=== PATIENT | male | born 1965 | race Caucasian/White ===

== ENCOUNTER → 2016-05-09 | Outpatient (CLI) | payer OTHER ==
[~2016-05-09] MED LIST: AMLODIPINE10 MG PO; AMOXICILLIN500 MG PO; AMOXIL500 MG PO; ANAPROX DS550 MG PO; ANUSOL-HC25 MG RC; ASPIRIN ADULT L81 M2 PO; ASPIRIN81 M1 PO; ATARAX25 MG PO; AUGMENTIN 875875 MG PO; BENZONATATE PO; CAPTOPRIL50 MG PO; CATAFLAM50 MG PO; CLARITIN10 MG PO; CLOPIDOGREL75 MG PO; COMPAZINE10 MG PO; CORDROL20 MG PO; CYCLOBENZAPRINE10 MG PO; DARVOCET N 1001 TAB PO; DAYPRO600 M1 PO; DICYCLOMINE HCL20 MG PO; FLEXERIL10 MG PO; FLEXERIL5 MG PO; GLUCOPHAGE500 M1 PO; GLYBURIDE5 MG PO; HYDROCHLOROTHIA25 MG PO; HYDROCODONE BIT1 T11 PO; IMDUR SA60 M1 PO; Imdur SA60 MG PO; KEFLEX500 MG PO; LANTUS SOLOS100 U/M1 SC; LISINOPRIL10 MG PO; LOTRISONE 0.05%1 CRE TP; LOVASTATIN20 MG PO; Lopressor25 MG PO; MEDROL DOSEPAK4 MG PO; METFORMIN1000 MG PO; METFORMIN500 MG PO; METOPROLOL100 MG PO; METOPROLOL50 MG PO; MEVACOR20 MG PO; MOTRIN800 MG PO; NAPROSYN500 MG PO; NEURONTIN600 MG PO; NKHM; NORCO 325 MG-51 TAB PO; NORCO 5-325 TA1 EACH PO; NOVOLIN R100 U/ML SC; OFLOXACIN PO; PARAFON FORTE500 MG PO; PERCOCET 325 MG1 TA2 PO; PREDNISONE10 MG PO; PREDNISONE20 MG PO; PRINIVIL10 MG PO; ROBAXIN750 MG PO; ROBITUSSIN AC 110 ML PO; TRAMADOL HCL50 MG PO; TRAMADOL50 MG PO; ULTRAM50 MG PO; VICODIN 5/500 505 MG PO; VICODIN ES 7501 TAB PO; [UNRECOGNIZED DRUG - OTHER] PO
== END | disposition home or self-care (01) ==
LOC: CT 05-02 15:00
DX: K42.9 Umbilical hernia without obstruction or gangrene (principal); K57.30 Diverticulosis of large intestine without perforation or abscess without bleeding; R10.32 Left lower quadrant pain

== ENCOUNTER → 2016-05-19 | Outpatient (CLI) | payer OTHER ==
[2016-05-19 11:45] LABS: BILIRUBIN NEGATIVE (NEGATIVE); BLOOD 1+ (NEGATIVE); CLARITY CLEAR (CLEAR); COLOR YELLOW (YELLOW); GLUCOSE 3+ (NEGATIVE); KETONE NEGATIVE (NEGATIVE); NITRITE NEGATIVE (NEGATIVE); PROTEIN 2+ (NEGATIVE); UROBILINOGEN 0.2 E.U./dl (0.2-1.0)
[2016-05-19 12:09] LABS: HEMOGLOBIN A1c 8.4 % (4.8-5.6)
[2016-05-19 12:22] LABS: ALBUMIN 3.4 gm/dl (3.1-4.5); ALKALINE PHOSPHATASE 105 U/L (45-117); BILIRUBIN, DIRECT < 0.1 mg/dL (0.0-0.2); BILIRUBIN, TOTAL 0.4 mg/dl (0.2-1.0); BUN 10 mg/dl (7-24); CARBON DIOXIDE 26 mmol/L (21-32); CHLORIDE 105 mmol/L (98-107); EST GLOM FILT AFRICAN AMERICAN > 60 ml/min; GLUCOSE 291 mg/dL (65-99); POTASSIUM 3.8 mmol/L (3.5-5.1); SGOT/AST 18 IU/L (3-35); SGPT/ALT 33 U/L (12-78); SODIUM 139 mmol/L (136-145); TOTAL PROTEIN 7.5 gm/dL (6.4-8.2)
[2016-05-19 12:44] LABS: LEUKO ESTERASE NEGATIVE (NEGATIVE)
[2016-05-19 13:07] LABS: VITAMIN D, 25-HYDROXY 20.1 ng/mL (30-100)
== END | disposition home or self-care (01) ==
LOC: LAB 11:14
PROVIDERS: Internal Medicine
DX: E11.40 Type 2 diabetes mellitus with diabetic neuropathy, unspecified (principal); E55.9 Vitamin D deficiency, unspecified; E78.5 Hyperlipidemia, unspecified

== ENCOUNTER → 2016-08-30 | Outpatient (CLI) | payer OTHER ==
[2016-08-30 15:11] LABS: BILIRUBIN NEGATIVE (NEGATIVE); BLOOD NEGATIVE (NEGATIVE); CLARITY CLEAR (CLEAR); COLOR YELLOW (YELLOW); GLUCOSE 2+ (NEGATIVE); KETONE NEGATIVE (NEGATIVE); LEUKO ESTERASE NEGATIVE (NEGATIVE); NITRITE NEGATIVE (NEGATIVE); PH 5.5 (5.0-9.0); PROTEIN NEGATIVE (NEGATIVE); SPECIFIC GRAVITY <= 1.005 (1.005-1.030); UROBILINOGEN 0.2 E.U./dl (0.2-1.0)
[2016-08-30 15:19] LABS: RBC 0-2 rbc/hpf (0-2); WBC 0-2 wbc/hpf (0-5)
[2016-08-30 15:32] LABS: HEMOGLOBIN A1c 9.9 % (4.8-5.6)
[2016-08-30 15:46] LABS: ALBUMIN 3.2 gm/dl (3.1-4.5); ALKALINE PHOSPHATASE 116 U/L (45-117); BILIRUBIN, DIRECT < 0.1 mg/dL (0.0-0.2); BILIRUBIN, TOTAL 0.3 mg/dl (0.2-1.0); BUN 5 mg/dl (7-24); CARBON DIOXIDE 27 mmol/L (21-32); CHLORIDE 106 mmol/L (98-107); CHOLESTEROL 172 mg/dL (<200); EST GLOM FILT AFRICAN AMERICAN > 60 ml/min; GLUCOSE 166 mg/dL (65-99); HDL CHOLESTEROL 31 mg/dl (40-60); LDL CHOLESTEROL 82 mg/dL (9-159); POTASSIUM 3.7 mmol/L (3.5-5.1); SGOT/AST 25 IU/L (3-35); SGPT/ALT 45 U/L (12-78); SODIUM 139 mmol/L (136-145); TRIGLYCERIDES 296 mg/dl (<150); VLDL CHOLESTEROL 59 mg/dL (6-40)
== END | disposition home or self-care (01) ==
LOC: LAB 14:32
PROVIDERS: Internal Medicine
DX: E11.65 Type 2 diabetes mellitus with hyperglycemia (principal); E55.9 Vitamin D deficiency, unspecified; E78.5 Hyperlipidemia, unspecified

== ENCOUNTER 2016-12-18 14:41 | Emergency (ER) | payer OTHER ==
[2016-12-18 14:48] VITALS: BP 165/100
[2016-12-18] MEDS ORDERED: LOTRIMIN AF12 GM T (15:27)
== END 2016-12-18 16:02 | disposition home or self-care (01) ==
LOC: ED 14:41
DX: B37.9 Candidiasis, unspecified (principal); Z88.4 Allergy status to anesthetic agent; Z79.82 Long term (current) use of aspirin; Z79.899 Other long term (current) drug therapy

== ENCOUNTER → 2016-12-21 | Outpatient (CLI) | payer OTHER ==
[~2016-12-21] MED LIST changes: +LOTRIMIN AF12 GM T
== END | disposition home or self-care (01) ==
LOC: RAD 12:13
DX: M76.891 Other specified enthesopathies of right lower limb, excluding foot (principal)

== ENCOUNTER 2017-03-06 16:37 | Emergency (ER) | payer OTHER ==
[~2017-03-06] VITALS: Ht 180.3 cm; Wt 99.8 kg
[2017-03-06 16:45] VITALS: BP 126/81
[2017-03-06] MEDS ORDERED: METOPROLOL TART50 M1 PO (16:49)
[2017-03-06] MEDS ORDERED: GABAPENTIN800 MG PO (16:50)
[2017-03-06] MEDS ORDERED: PAROXETINE HCL40 MG PO (16:50)
[2017-03-06 17:08] LABS: BASO # 0.1 10*3/uL (0.0-0.1); BASO % 0.9 % (0.0-1.0); EOS # 0.3 10*3/uL (0.0-0.4); EOS % 3.1 % (1.0-4.0); HEMATOCRIT 39.5 % (42.0-52.0); HEMOGLOBIN 13.9 g/dl (14.0-18.0); LYMPH # 3.2 10*3/uL (1.3-4.4); LYMPH % 32.3 % (27.0-41.0); MEAN CELL VOLUME 83.3 fl (80.0-94.0); MEAN CORPUSCULAR HGB 29.3 pg (27.0-31.0); MEAN CORPUSCULAR HGB CONC 35.2 g/dl (33.0-37.0); MEAN PLATELET VOLUME 11.1 fl (9.6-12.3); MONO # 0.8 10*3/uL (0.1-1.0); MONO % 8.1 % (3.0-9.0); NEUT # 5.5 10*3/uL (2.3-7.9); NEUT % 55.1 % (47.0-73.0); PLATELET COUNT AUTOMATED 226 10*3/uL (130-400); RED BLOOD COUNT 4.74 10*6/uL (4.50-5.90); WHITE BLOOD COUNT 9.9 10*3/uL (4.8-10.8)
[2017-03-06 17:25] LABS: ALBUMIN 3.1 gm/dl (3.1-4.5); ALKALINE PHOSPHATASE 190 U/L (45-117); BUN 13 mg/dl (7-24); CHLORIDE 99 mmol/L (98-107); CREATININE 1.24 mg/dL (0.70-1.30); POTASSIUM 4.5 mmol/L (3.5-5.1); SGOT/AST 36 IU/L (3-35); SGPT/ALT 87 U/L (12-78); SODIUM 134 mmol/L (136-145); TOTAL PROTEIN 7.2 gm/dL (6.4-8.2)
[2017-03-06 17:29] LABS: TROPONIN I < 0.015 ng/ml (<0.045)
[2017-03-06] MEDS ORDERED: PREDNISONE50 MG PO (18:22)
[2017-03-06] MEDS ORDERED: IBU800 MG PO (18:22)
== END 2017-03-06 18:37 | disposition home or self-care (01) ==
LOC: ED 16:37
PROVIDERS: Student in an Organized Health Care Education/Training Program
DX: J44.1 Chronic obstructive pulmonary disease with (acute) exacerbation (principal); M54.9 Dorsalgia, unspecified; I10 Essential (primary) hypertension; I25.10 Atherosclerotic heart disease of native coronary artery without angina pectoris; E11.65 Type 2 diabetes mellitus with hyperglycemia; Z90.49 Acquired absence of other specified parts of digestive tract; E78.5 Hyperlipidemia, unspecified; Z79.4 Long term (current) use of insulin; Z88.4 Allergy status to anesthetic agent

== ENCOUNTER 2017-06-07 13:52 | Emergency (ER) | payer OTHER ==
[~2017-06-07] VITALS: Ht 180.3 cm; Wt 97.5 kg
[~2017-06-07 13:52] MED LIST changes: +GABAPENTIN800 MG PO; +IBU800 MG PO; +METOPROLOL TART50 M1 PO; +PAROXETINE HCL40 MG PO; +PREDNISONE50 MG PO
[2017-06-07 14:05] VITALS: BP 168/116
[2017-06-07 15:52] LABS: BILIRUBIN NEGATIVE (NEGATIVE); BLOOD TRACE-INTACT (NEGATIVE); CLARITY CLEAR (CLEAR); COLOR YELLOW (YELLOW); GLUCOSE 3+ (NEGATIVE); KETONE NEGATIVE (NEGATIVE); LEUKO ESTERASE NEGATIVE (NEGATIVE); NITRITE NEGATIVE (NEGATIVE); PH 5.5 (5.0-9.0); SPECIFIC GRAVITY 1.015 (1.005-1.030); UROBILINOGEN 0.2 E.U./dl (0.2-1.0)
[2017-06-07 16:01] LABS: RBC 0-2 rbc/hpf (0-2)
[2017-06-07] MEDS ORDERED: PREDNISONE10 MG PO (17:09)
== END 2017-06-07 17:15 | disposition home or self-care (01) ==
LOC: ED 13:52
PROVIDERS: Nurse Practitioner
DX: R91.8 Other nonspecific abnormal finding of lung field (principal); Z88.4 Allergy status to anesthetic agent; Z79.899 Other long term (current) drug therapy; Z79.82 Long term (current) use of aspirin; Z79.4 Long term (current) use of insulin; Z90.49 Acquired absence of other specified parts of digestive tract; Z98.890 Other specified postprocedural states; Z95.5 Presence of coronary angioplasty implant and graft

== ENCOUNTER → 2017-10-02 | Outpatient (CLI) | payer OTHER ==
--- NOTE | ~2017-10-02 | ST ---
[place], [place] EXERCISE STRESS TEST REPORT NAME: YOJANA SCHERER SR, [facility] [id number] UNIT #: [id number] ROOM: DOCTOR: IGGY ESTEBAN MD BIRTHDATE: [birth year] DOS: 10/02/2017 LEXISCAN PORTION OF THE LEXISCAN CARDIOLITE PROCEDURE AND FINDINGS: Baseline echocardiogram with sinus rhythm with mild ST elevation in the inferior leads. 0.4 mg of Lexiscan, duration of 10 seconds. There is a little bit more ST elevation in the inferior leads with T-wave inversions in the inferior leads and the lateral leads. The patient had no chest discomfort with this. Blood pressure and heart rate response was normal. FINAL IMPRESSION: Abnormal EKG response with mild ST elevation and T-wave inversions in the inferior and inferolateral leads. No chest pain. Blood pressure and heart rate response was normal. Nuclear images will be reported separately. IGGY ESTEBAN MD CM:STRESS:EXERCISE STRESS TEST REPORT [id number] IGGY ESTEBAN MD
== END | disposition home or self-care (01) ==
LOC: CARD 03:45
DX: I20.9 Angina pectoris, unspecified (principal); R94.31 Abnormal electrocardiogram [ECG] [EKG]; R53.81 Other malaise

== ENCOUNTER 2017-10-16 14:32 | Emergency (ER) | payer OTHER ==
[~2017-10-16] VITALS: Ht 177.8 cm; Wt 95.7 kg
[2017-10-16 15:00] LABS: BILIRUBIN NEGATIVE (NEGATIVE); BLOOD NEGATIVE (NEGATIVE); CLARITY CLEAR (CLEAR); COLOR YELLOW (YELLOW); GLUCOSE 3+ (NEGATIVE); KETONE NEGATIVE (NEGATIVE); LEUKO ESTERASE NEGATIVE (NEGATIVE); NITRITE NEGATIVE (NEGATIVE); PH 5.5 (5.0-9.0); UROBILINOGEN 0.2 E.U./dl (0.2-1.0)
[2017-10-16 15:04] LABS: BASO # 0.1 10*3/uL (0.0-0.1); BASO % 0.8 % (0.0-1.0); EOS # 0.3 10*3/uL (0.0-0.4); EOS % 2.8 % (1.0-4.0); HEMOGLOBIN 15.9 g/dl (14.0-18.0); LYMPH # 1.9 10*3/uL (1.3-4.4); LYMPH % 20.3 % (27.0-41.0); MEAN CELL VOLUME 82.1 fl (80.0-94.0); MEAN CORPUSCULAR HGB 28.4 pg (27.0-31.0); MEAN CORPUSCULAR HGB CONC 34.6 g/dl (33.0-37.0); MEAN PLATELET VOLUME 11.1 fl (9.6-12.3); MONO # 0.9 10*3/uL (0.1-1.0); MONO % 9.8 % (3.0-9.0); NEUT # 6.1 10*3/uL (2.3-7.9); PLATELET COUNT AUTOMATED 190 10*3/uL (130-400); WHITE BLOOD COUNT 9.3 10*3/uL (4.8-10.8)
[2017-10-16 15:20] LABS: ALBUMIN 3.4 gm/dl (3.1-4.5); CREATININE 1.6 mg/dL (0.70-1.30); POTASSIUM 4.1 mmol/L (3.5-5.1); TOTAL PROTEIN 7.7 gm/dL (6.4-8.2)
[2017-10-16 15:47] LABS: BACTERIA TRACE; RBC 0-2 rbc/hpf (0-2)
[2017-10-16 18:35] VITALS: BP 144/98
== END 2017-10-16 18:43 | disposition home or self-care (01) ==
LOC: ED 14:32
PROVIDERS: Nurse Practitioner Family
DX: E11.65 Type 2 diabetes mellitus with hyperglycemia (principal); R10.9 Unspecified abdominal pain; I10 Essential (primary) hypertension; I25.10 Atherosclerotic heart disease of native coronary artery without angina pectoris; E78.5 Hyperlipidemia, unspecified; G89.29 Other chronic pain; Z90.49 Acquired absence of other specified parts of digestive tract; Z88.8 Allergy status to other drugs, medicaments and biological substances; Z79.899 Other long term (current) drug therapy; Z79.82 Long term (current) use of aspirin; Z79.4 Long term (current) use of insulin

== ENCOUNTER 2017-11-20 15:10 | Inpatient (IN) | payer OTHER ==
[~2017-11-20] VITALS: Ht 180.3 cm; Wt 96.6 kg
--- NOTE | ~2017-11-20 | CON ---
[place], [place] REPORT OF CONSULTATION NAME: YOJANA SCHERER SR, V [facility] #: [id number] UNIT #: [id number] ROOM: 518 DOCTOR: GENESIS VOGEL DO BIRTHDATE: [birth year] DOS: 11/21/2017 CONSULTATION REQUESTED BY: Hospitalist Service. REASON FOR CONSULTATION: Shortness of breath. HISTORY OF PRESENTING ILLNESS: The patient is a 52-year-old white male. He presents to the [facility] with complaints of shortness of breath. He states that his lungs have been bad for a while, but his symptoms became increasingly worse over the past week. He admits to cough with occasional yellow mucus production. He is a never smoker. 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 He has not worked in the past 6 years following a heart attack. He admits to chest pain and shortness of breath and hand swelling with activity. He has been following with Dr. Avalos for monitoring of lung nodules. He currently denies any lightheadedness, chest pain, shortness of breath at rest, nausea, vomiting, diarrhea, hemoptysis, hematemesis, melena or hematochezia. REVIEW OF SYSTEMS: CONSTITUTIONAL: Denies fatigue, fevers or chills. He reports a weight loss of 60 pounds over 1 year. EYES: Denies burning, redness, or tenderness. EARS, NOSE, THROAT: Denies sore throat, hoarseness, otalgia, postnasal drainage or epistaxis. CARDIOVASCULAR: Denies chest pain, edema or pain in the lower extremities. GASTROINTESTINAL: Denies dysphagia, nausea, vomiting, diarrhea, abdominal pain, hematemesis, melena or hematochezia. GENITOURINARY: No dysuria, suprapubic pain, or hematuria. MUSCULOSKELETAL: No acute joint pain. SKIN: Denies any lesions or rashes. CENTRAL NERVOUS SYSTEM: Denies dizziness, headaches, diplopia or syncopal episodes. PAST MEDICAL HISTORY: History of coronary artery disease with myocardial infarction, chronic back pain, closed head injury, essential hypertension, lung nodule, less than [address], hyperlipidemia, obstructive sleep apnea, overweight, type 2 diabetes with hyperglycemia. PAST SURGICAL HISTORY: Carpal tunnel surgery of the right wrist, history of heart artery stent, history of appendectomy, cholecystectomy, percutaneous transluminal coronary angioplasty. Umbilical hernia repair, multiple times. SOCIAL HISTORY: Does not drink, does not use drugs, has never used tobacco. FAMILY HISTORY: His mother is in her early 50s due to myocardial infarction. His father is at age 54 from lung cancer. MEDICATIONS: Solu-Medrol 40 mg IV daily, Levaquin 500 daily, Mucinex, DuoNebs q. 6h., sliding scale insulin and other p.r.n. medications. [place], [place] REPORT OF CONSULTATION NAME: YOJANA SCHERER SR, V UNIT #: [id number] ROOM: 518 DOCTOR: GENESIS VOGEL DO BIRTHDATE: [birth year] DRUG ALLERGIES: GENERAL ANESTHETICS. PHYSICAL EXAMINATION: GENERAL APPEARANCE: Alert, awake, responsive, no acute distress. VITAL SIGNS: Temperature 98.1, heart rate 91, respirations 20, blood pressure 145/92, pulse ox 97% on room air. HEENT: Head is atraumatic. Eyes nonicteric. NECK: Supple. CARDIOVASCULAR: S1, S2 audible. LUNGS: Clear to auscultation bilaterally. Minimally diminished at the bases. No crackles. ABDOMEN: Soft, nontender, nondistended. SKIN: Visible skin, no lesions or rashes. CENTRAL NERVOUS SYSTEM: Cranial nerves 2-12 are grossly intact. No gross focal deficit. MUSCULOSKELETAL: No acute deformities. LABORATORY DATA: On admission, 11/20/2017, white blood cells 7.7, hemoglobin 14.4, hematocrit 41.8, platelet count 221,000. CBC today, white blood cell count 13.0, likely reactive from steroids, hematocrit 41.3, hemoglobin 14.1, platelet count 221,000. Chemistry today, sodium 136, potassium 4.5, glucose 446, triglycerides 197, cholesterol 243, LDL cholesterol 164. Chest x-ray shows no acute disease. Chest CT shows no acute disease and several pulmonary nodules, which are stable. IMPRESSION: 1. Chronic obstructive pulmonary disease exacerbation. 2. Pneumonitis. 3. Lactic acidosis. His lactic acid was 3.6 on admission and has resolved. 4. Acute renal failure on admission, which has also resolved. 5. Type 2 diabetes with hyperglycemia. 6. Lung nodule, less than [address] 7. Mixed hyperlipidemia. 8. Coronary artery disease. 9. Obstructive sleep apnea. 10. Essential hypertension. PLAN OF MANAGEMENT: The patient may continue current antibiotics, Solu-Medrol, DuoNebs, and other supportive measures. Chest CT shows stable nodules. If he is feeling better tomorrow, discharge may be possible. Genesis Vogel DO [place], [place] REPORT OF CONSULTATION NAME: YOJANA SCHERER SR, V UNIT #: [id number] ROOM: 518 DOCTOR: GENESIS VOGEL DO BIRTHDATE: [birth year] JASMIN AVALOS MD CM:CONSTR:REPORT OF CONSULTATION 1222 11/22/17 0017 interface
--- NOTE | ~2017-11-20 | CON ---
[place], [place] REPORT OF CONSULTATION NAME: YOJANA SCHERER SR, [facility] [id number] UNIT #: [id number] ROOM: 518 DOCTOR: JASMIN BALDERAS MD BIRTHDATE: [birth year] DOS: 11/21/2017 PULMONARY CONSULTATION EVALUATION ADDENDUM NOTE CONSULTATION REQUESTED BY: Hospitalist service for assessment of symptoms of shortness of breath. HISTORY OF PRESENT ILLNESS: The patient was independently seen and examined in ogil-xe-qauu encounter, history was confirmed. Physical examination was performed. Labs reviewed. Assessment and management personally completed for patient today's visit. Note done by the medical claims specialist was approved as well. The patient is a 52-year-old white male, who has been known to me with office with history of uncomplicated moderate persistent bronchial asthma, also seen in the office on 06/19/2017 with pulmonary nodules. The patient has a followup CT scan, which was scheduled to be done this month. He came into the Emergency Room as the patient developed symptoms of increased shortness of breath at home. He has been noted with symptoms of shortness breath, which occurring with walking at home. He does have mild cough without any sputum expectoration. Denies symptoms of wheezing. The patient denies symptoms of chest pain or hemoptysis. The cough was noted with a small amount of yellow sputum expectoration since admission of yesterday. The patient reported reduction of respiratory symptoms. REVIEW OF SYSTEMS: Already completed by the medical claims specialist. The patient has improved. PAST MEDICAL HISTORY: 1. History of uncomplicated moderate persistent bronchial asthma. 2. Allergic rhinitis. 3. Type 2 diabetes mellitus. 4. Moderate obesity. 5. Hypothyroidism. 6. Essential hypertension. 7. A 4 and 6 mm nodule for the patient's right upper lobe noticed 06/07/2017. SOCIAL HISTORY: The patient was noted nonsmoker, lives at home. He is and has 2 children. Denies history of alcohol use, illicit drug use. The patient was known with history of use of beer. PAST SURGICAL HISTORY: 1. Cardiac catheterization in 2012, note by the umbilical hernia repair. 2. Appendectomy. 3. Laparoscopic cholecystectomy. FAMILY HISTORY: Father at age 52-year-old, complication of lung cancer. Mother at 51-year-old age of complication of myocardial infarction. HOME MEDICATIONS: For the patient which were used by the patient noted Flovent HFA inhaler, losartan, diclofenac, Imdur, loratadine, vitamin D, atorvastatin, Ventolin, metoprolol tartrate, sliding insulin coverage, Lantus insulin, Plavix [place], [place] REPORT OF CONSULTATION NAME: YOJANA SCHERER SR, V UNIT #: [id number] ROOM: 518 DOCTOR: BAILEY HINOJOSA MD,JASMIN BIRTHDATE: [birth year] and [place]. PAST HISTORY: The patient now stated that history of coronary artery disease, also to be noted. DRUG ALLERGY HISTORY: Noted with allergy was noted with allergy to neral anesthetic for the patient or adverse reaction such as nausea or vomiting. PHYSICAL EXAMINATION: ENERAL: A 52-year-old white male who has been currently sitting on the bed without acute distress. Height of 5 feet 11 inches, weight of 213 pounds, BMI 29.7. VITAL SIGNS: Normal temperature, respiratory rate 20, heart rate of 108-85, blood pressure 140/84-140/78, pulse ox saturation on room air 95% saturation at rest. HEENT: Moderate obesity. Head was atraumatic. Eyes nonicterus. NECK: Supple. CARDIOVASCULAR: S1, S2 is audible. LUNGS: The patient was noted without any wheezing or crackles at the present time. Breaths are noted decrease in the lower portion of the lungs. Breath sounds were noted at this time. ABDOMEN: Soft. Mild to moderate obesity, positive for the extremity and. acute edema. SKIN: No lesions or rashes. CENTRAL NERVOUS SYSTEM: The patient noted nonfocal. LABORATORY DATA: CBC of the patient on admission 11/20/2017 was noted as normal WBC, hemoglobin, hematocrit. The lactic acid 4.1, followup was 2.0. CMP of the patient of 724, glucose 576, BUN 13, creatinine 1.42. Sodium 134. The troponin for the 3 sets, which were cycled yesterday all noted normal. CBC of the patient of 11/21/2017, dips count 13.3, otherwise normal. Bedside blood glucose 448, which was noted this morning. 10/12/2017. CMP this morning, normal BUN and creatinine, glucose 446. The chest x-ray does not show any acute pulmonary infiltration. CT scan of chest with contrast was reviewed, shows stable nodule 4 and 6 mm nodule in the right upper lung without any additional findings. CT scan of the chest was compared to the previous CT scan of 05/2017. IMPRESSION: 1. The patient was currently noted with stable pulmonary nodules, admitted to the hospital. The patient has severely uncontrolled diabetes mellitus, acute kidney secondary to hypovolemia. 2. Early exacerbation of bronchial asthma would be considered as well. 3. The patient with mild obesity as well. 4. Family history of lung cancer. PLAN OF MANAGEMENT: At this time, the patient's steroid dose will be decreased to 40 mg daily because of absence of wheezing. Continuation other therapy, plan of management with acute kidney resolved. The patient with IV hydration. Lactic acidosis also resolved. Continue deep venous thrombosis prophylaxis. Ambulation would be encouraged. [place], [place] REPORT OF CONSULTATION NAME: YOJANA SCHERER SR, V UNIT #: [id number] ROOM: 518 DOCTOR: BAILEY HINOJOSA MD,JASMIN BIRTHDATE: [birth year] Potential discharge may be considered in the morning. Continue to optimize medical management of severely uncontrolled diabetes mellitus, noted on admission; as well there was no evidence of diabetic ketoacidosis. Other supportive plan of management and therapy to be continued. JASMIN AVALOS MD CM:CONSTR:REPORT OF CONSULTATION 1155 11/21/17 1443 interface
--- NOTE | ~2017-11-20 | PR ---
[place], [place] PROGRESS NOTE NAME: YOJANA SCHERER SR, V UNIT #: [id number] ROOM: 518 DOCTOR: JASPREET DOGENESIS BIRTHDATE: [birth year] DOS: 11/22/2017 SUBJECTIVE: The patient was seen and evaluated today. He was resting comfortably in bed. He denies any further shortness of breath. He denies lightheadedness, cough, chest pain, nausea, vomiting, diarrhea or any other symptoms at this time. He states he is feeling better and would like to go home. PHYSICAL EXAMINATION: VITAL SIGNS: Temperature 98.1, heart rate 67, respirations 21, blood pressure 106/60, pulse ox 97% on room air. HEENT: Moderate obesity. Head is atraumatic. Eyes nonicteric. NECK: Supple. CARDIOVASCULAR: S1, S2 audible. LUNGS: No wheezing or crackles. BREASTS: Mildly decreased in the lower portion of the lungs bilaterally. LUNGS: Clear. ABDOMEN: Soft, mild to moderate obesity, positive bowel sounds. EXTREMITIES: No acute edema. SKIN: No lesions or rashes on exposed skin. CENTRAL NERVOUS SYSTEM: Cranial nerves 2-12 grossly intact. No focal deficit. LABORATORY DATA: White blood cells 11.6, hemoglobin 12.3, hematocrit 36.7, platelet count 208,000. BMP today, sodium 138, potassium 4.2, chloride 104, CO2 of 24, BUN 21, creatinine 1.16, glucose 490. Hemoglobin A1c 14. IMPRESSION: 1. Stable pulmonary nodules. 2. Severely uncontrolled diabetes mellitus. 3. Acute kidney failure secondary to hypovolemia. 4. Early exacerbation of bronchial asthma. 5. Mild obesity. 6. Family history of lung cancer. PLAN OF MANAGEMENT: The patient is stable at this time. He may be discharged home on oral antibiotics. CAT scan showed stable pulmonary nodules. This will not have to be repeated next month. He may follow up in the office for monitoring of his pulmonary nodules. Genesis JaspreetDO [place], [place] PROGRESS NOTE NAME: YOJANA SCHERER SR, V UNIT #: [id number] ROOM: 518 DOCTOR: GENESIS VOGEL DO BIRTHDATE: [birth year] JASMIN AVALOS MD CM:VANDA 1412 0253 GENESIS VOGEL DO 11/23/17 0252 interface
--- NOTE | ~2017-11-20 | EKG ---
[place], [place] ELECTROCARDIOGRAM REPORT NAME: YOJANA SCHERER SR, V UNIT #: [id number] ROOM: 518 DOCTOR: EPIPHANY DRAFT REPORT BIRTHDATE: [birth year] [facility] Test Date: 2017-11-20 Test Time: 15:38:19 Pat Name: YOJANA SCHERER Department: Room: Gender: Still Operator: Rogerio Teresa : 1965 Requested By: DANIKA RODRIGUEZ Order Number: [id number] Reading MD: Wisam Garland MD Measurements Intervals [place] Rate: 97 P: 30 [place]: 164 QRS: 12 QRSD: 83 T: 162 QT: 327 QTc: 416 Interpretive Statements Sinus rhythm Nonspecific T abnormalities, lateral leads poor R wave progression anterior leads Electronically Signed On 11-22-2017 11:29:57 PDT by Wisam Garland MD CM:EKGRPT:ELECTROCARDIOGRAM REPORT [id number] DANIKA RODRIGUEZ EPIPHANY DRAFT REPORT DANIKA RODRIGUEZ
--- NOTE | ~2017-11-20 | PR ---
[place], [place] PROGRESS NOTE NAME: YOJANA SCHERER SR, V UNIT #: [id number] ROOM: 518 DOCTOR: JASMIN BALDERAS MD BIRTHDATE: [birth year] DOS: 11/22/2017 PULMONARY ADDENDUM NOTE SUBJECTIVE: The patient was independently seen and examined with ghdv-ed-vbfz encounter, history was confirmed. Physical examination performed. The labs were reviewed. Assessment and management and changes in the management of the patient was personally completed. The note done by the emergency medical service coordinator was approved as well. The patient has been noted comfortable at this time without acute distress, noted with reduction of the respiratory symptoms at this time. The patient denies symptoms of chest pain, hemoptysis, fever or chills. The respiratory symptoms have been decreasing progressively. PHYSICAL EXAMINATION: VITAL SIGNS: Normal temperature, respiratory rate 19, heart rate of 86, blood pressure 122/74, pulse ox saturation on room air 95% saturation. HEENT: No acute change. NECK: Supple. CARDIOVASCULAR: S1, S2 is audible. LUNGS: The patient without any wheeze or crackles. ABDOMEN: Soft, nontender, bowel sounds present. EXTREMITIES: Without any acute edema. LABORATORY DATA: There were no new labs done today. Blood glucose elevated at 473. IMPRESSION: 1. Resolving acute exacerbation of bronchial asthma. 2. Stable pulmonary nodule, right upper, right middle lobe as well. Subcentimeter stable for 6 months. PLAN OF TREATMENT: No changes from the pulmonary standpoint, the patient could be discharged home on tapering dose of prednisone. Continue other therapy, plan and management previously with other usual care and therapies. Discharge planning per primary care physician. Outpatient followup post-discharge would be established. [place], [place] PROGRESS NOTE NAME: YOJANA SCHERER SR, V UNIT #: [id number] ROOM: 518 DOCTOR: JASMIN BALDERAS MD BIRTHDATE: [birth year] JASMIN AVALOS MD CM:PNTRANS 1250 1414 JASMIN HINOJOSA MD 11/22/17 1412 interface
[2017-11-20 15:10] VITALS: BP 153/101
[2017-11-20 15:53] LABS: BASO # 0.1 10*3/uL (0.0-0.1); BASO % 0.8 % (0.0-1.0); EOS # 0.3 10*3/uL (0.0-0.4); EOS % 3.8 % (1.0-4.0); HEMATOCRIT 41.8 % (42.0-52.0); HEMOGLOBIN 14.4 g/dl (14.0-18.0); LYMPH # 2.6 10*3/uL (1.3-4.4); LYMPH % 33.7 % (27.0-41.0); MEAN CELL VOLUME 83.8 fl (80.0-94.0); MEAN CORPUSCULAR HGB 28.9 pg (27.0-31.0); MEAN CORPUSCULAR HGB CONC 34.4 g/dl (33.0-37.0); MEAN PLATELET VOLUME 11.1 fl (9.6-12.3); MONO # 0.7 10*3/uL (0.1-1.0); MONO % 9.1 % (3.0-9.0); NEUT % 52.1 % (47.0-73.0); PLATELET COUNT AUTOMATED 221 10*3/uL (130-400); RED BLOOD COUNT 4.99 10*6/uL (4.50-5.90); RED CELL DISTRI WIDTH 13.2 % (0-14.5); WHITE BLOOD COUNT 7.7 10*3/uL (4.8-10.8)
[2017-11-20 16:07] LABS: ALBUMIN 3.3 gm/dl (3.1-4.5); ALKALINE PHOSPHATASE 133 U/L (45-117); BUN 13 mg/dl (7-24); CHLORIDE 101 mmol/L (98-107); CREATININE 1.42 mg/dL (0.70-1.30); POTASSIUM 3.8 mmol/L (3.5-5.1); SGOT/AST 13 IU/L (3-35); SGPT/ALT 39 U/L (12-78); SODIUM 134 mmol/L (136-145); TOTAL PROTEIN 7.4 gm/dL (6.4-8.2)
[2017-11-20 16:55] LABS: BILIRUBIN NEGATIVE (NEGATIVE); BLOOD TRACE-INTACT (NEGATIVE); CLARITY CLEAR (CLEAR); COLOR YELLOW (YELLOW); GLUCOSE 3+ (NEGATIVE); KETONE NEGATIVE (NEGATIVE); LEUKO ESTERASE NEGATIVE (NEGATIVE); NITRITE NEGATIVE (NEGATIVE); SPECIFIC GRAVITY <= 1.005 (1.005-1.030); UROBILINOGEN 0.2 E.U./dl (0.2-1.0)
[2017-11-20 17:13] LABS: BACTERIA TRACE; RBC 0-2 rbc/hpf (0-2); WBC 0-2 wbc/hpf (0-5)
[2017-11-20 18:31] VITALS: BP 154/102
[2017-11-20 21:31] VITALS: BP 151/95
[2017-11-20 23:23] VITALS: BP 142/84
[2017-11-21] VITALS: BP 142/84
[2017-11-21 06:23] LABS: BASO % 0.2 % (0.0-1.0); EOS % 0.1 % (1.0-4.0); HEMATOCRIT 41.3 % (42.0-52.0); HEMOGLOBIN 14.1 g/dl (14.0-18.0); LYMPH # 1.4 10*3/uL (1.3-4.4); LYMPH % 10.5 % (27.0-41.0); MEAN CELL VOLUME 83.6 fl (80.0-94.0); MEAN CORPUSCULAR HGB 28.5 pg (27.0-31.0); MEAN CORPUSCULAR HGB CONC 34.1 g/dl (33.0-37.0); MEAN PLATELET VOLUME 10.7 fl (9.6-12.3); MONO # 0.3 10*3/uL (0.1-1.0); MONO % 2.1 % (3.0-9.0); NEUT # 11.2 10*3/uL (2.3-7.9); NEUT % 86.6 % (47.0-73.0); PLATELET COUNT AUTOMATED 211 10*3/uL (130-400); RED BLOOD COUNT 4.94 10*6/uL (4.50-5.90); RED CELL DISTRI WIDTH 13.4 % (0-14.5)
[2017-11-21 06:37] LABS: ALBUMIN 3.1 gm/dl (3.1-4.5); ALKALINE PHOSPHATASE 107 U/L (45-117); BUN 16 mg/dl (7-24); CHLORIDE 104 mmol/L (98-107); CHOLESTEROL 243 mg/dL (<200); CREATININE 1.11 mg/dL (0.70-1.30); HDL CHOLESTEROL 40 mg/dl (40-60); LDL CHOLESTEROL 164 mg/dL (9-159); PHOSPHOROUS 3.3 mg/dL (2.5-4.9); POTASSIUM 4.5 mmol/L (3.5-5.1); SGOT/AST 16 IU/L (3-35); SGPT/ALT 41 U/L (12-78); SODIUM 136 mmol/L (136-145); TRIGLYCERIDES 197 mg/dl (<150); VLDL CHOLESTEROL 39 mg/dL (6-40)
[2017-11-21 06:38] LABS: FREE T4 0.92 ng/dl (0.76-1.46)
[2017-11-21 06:43] LABS: THYROID STIM HORMONE (HS) 0.492 uIU/ml (0.358-4.75)
[2017-11-21 08:00] VITALS: BP 142/78
[2017-11-21 08:43] LABS: VITAMIN D, 25-HYDROXY 25.2 ng/mL (30-100)
[2017-11-21 12:00] VITALS: BP 145/92
[2017-11-21 16:00] VITALS: BP 145/97
[2017-11-21 20:00] VITALS: BP 114/80
[2017-11-22] VITALS: BP 139/81
[2017-11-22 06:56] LABS: BASO % 0.1 % (0.0-1.0); HEMATOCRIT 36.7 % (42.0-52.0); HEMOGLOBIN 12.3 g/dl (14.0-18.0); LYMPH # 1.5 10*3/uL (1.3-4.4); LYMPH % 12.7 % (27.0-41.0); MEAN CELL VOLUME 86.4 fl (80.0-94.0); MEAN CORPUSCULAR HGB 28.9 pg (27.0-31.0); MEAN CORPUSCULAR HGB CONC 33.5 g/dl (33.0-37.0); MEAN PLATELET VOLUME 11.3 fl (9.6-12.3); MONO # 0.6 10*3/uL (0.1-1.0); NEUT # 9.5 10*3/uL (2.3-7.9); NEUT % 81.3 % (47.0-73.0); PLATELET COUNT AUTOMATED 208 10*3/uL (130-400); RED BLOOD COUNT 4.25 10*6/uL (4.50-5.90); RED CELL DISTRI WIDTH 14.3 % (0-14.5); WHITE BLOOD COUNT 11.6 10*3/uL (4.8-10.8)
[2017-11-22 07:26] LABS: BUN 21 mg/dl (7-24); CHLORIDE 104 mmol/L (98-107); CREATININE 1.16 mg/dL (0.70-1.30); POTASSIUM 4.2 mmol/L (3.5-5.1); SODIUM 138 mmol/L (136-145)
[2017-11-22 08:00] VITALS: BP 123/74
[2017-11-22 12:00] VITALS: BP 106/60; BP 112/70
[2017-11-22] MEDS ORDERED: PAROXETINE HCL40 MG PO (13:02)
[2017-11-22] MEDS ORDERED: METOPROLOL TART50 M1 PO (13:02)
[2017-11-22] MEDS ORDERED: Vitamin D PO (13:02)
[2017-11-22] MEDS ORDERED: PRINIVIL10 MG PO (13:02)
[2017-11-22] MEDS ORDERED: SIMVASTATIN20 MG PO (13:02)
[2017-11-22] MEDS ORDERED: IMDUR SA60 M1 PO (13:02)
[2017-11-22] MEDS ORDERED: Humalog SQ (13:02)
[2017-11-22] MEDS ORDERED: ASPIRIN81 M1 PO (13:02)
[2017-11-22] MEDS ORDERED: LEVEMIR FL100 UNIT/1 SQ (13:02)
[2017-11-22] MEDS ORDERED: DOXYCYCLINE100 M3 PO (13:03)
[2017-12-03] MEDS ORDERED: PREDNISONE10 MG PO (21:30)
[2017-12-19] MEDS ORDERED: CEPHALEXIN500 M1 PO (21:30)
[2017-12-19] MEDS ORDERED: SEPTDS PO (21:30)
== END 2017-11-22 14:11 | disposition home or self-care (01) | DRG 682 ==
LOC: ED 15:10 → EDHOLD 17:27 → 5E 17:27
PROVIDERS: Internal Medicine; Nurse Practitioner
DX: N17.0 Acute kidney failure with tubular necrosis (principal); J18.9 Pneumonia, unspecified organism; E87.2 Acidosis; J44.0 Chronic obstructive pulmonary disease with (acute) lower respiratory infection; E87.1 Hypo-osmolality and hyponatremia; E11.65 Type 2 diabetes mellitus with hyperglycemia; J45.901 Unspecified asthma with (acute) exacerbation; J44.1 Chronic obstructive pulmonary disease with (acute) exacerbation; E86.1 Hypovolemia; R91.8 Other nonspecific abnormal finding of lung field; R91.1 Solitary pulmonary nodule; I10 Essential (primary) hypertension; G89.29 Other chronic pain; M54.9 Dorsalgia, unspecified; E78.2 Mixed hyperlipidemia; I25.10 Atherosclerotic heart disease of native coronary artery without angina pectoris; E66.3 Overweight; G47.33 Obstructive sleep apnea (adult) (pediatric); Z98.61 Coronary angioplasty status; Z79.82 Long term (current) use of aspirin; Z90.49 Acquired absence of other specified parts of digestive tract; Z82.49 Family history of ischemic heart disease and other diseases of the circulatory system; Z79.4 Long term (current) use of insulin; Z83.3 Family history of diabetes mellitus; Z80.1 Family history of malignant neoplasm of trachea, bronchus and lung; Z88.8 Allergy status to other drugs, medicaments and biological substances; I25.2 Old myocardial infarction; Z87.19 Personal history of other diseases of the digestive system; Z68.29 Body mass index [BMI] 29.0-29.9, adult; Z79.899 Other long term (current) drug therapy

== ENCOUNTER 2017-12-28 11:51 | Emergency (ER) | payer OTHER ==
[~2017-12-28] VITALS: Ht 182.8 cm; Wt 95.3 kg
[~2017-12-28 11:51] MED LIST changes: +CEPHALEXIN500 M1 PO; +DOXYCYCLINE100 M3 PO; +Humalog SQ; +LEVEMIR FL100 UNIT/1 SQ; +SEPTDS PO; +SIMVASTATIN20 MG PO; +Vitamin D PO
[2017-12-28 11:55] VITALS: BP 170/104
[2017-12-28] MEDS ORDERED: PREDNISONE10 MG PO (12:06)
[2018-02-11] MEDS ORDERED: GLUCOPHAGE1000 MG PO (15:06)
== END 2017-12-28 12:24 | disposition home or self-care (01) ==
LOC: ED 11:51
DX: T63.441A Toxic effect of venom of bees, accidental (unintentional), initial encounter (principal); I10 Essential (primary) hypertension; I25.10 Atherosclerotic heart disease of native coronary artery without angina pectoris; J44.9 Chronic obstructive pulmonary disease, unspecified; E11.9 Type 2 diabetes mellitus without complications; E78.2 Mixed hyperlipidemia; F17.200 Nicotine dependence, unspecified, uncomplicated; Z90.49 Acquired absence of other specified parts of digestive tract; Z98.890 Other specified postprocedural states; Z95.5 Presence of coronary angioplasty implant and graft; Z88.4 Allergy status to anesthetic agent; Y92.89 Other specified places as the place of occurrence of the external cause

== ENCOUNTER → 2018-02-02 | Outpatient (CLI) | payer OTHER ==
[~2018-02-02] MED LIST changes: +GLUCOPHAGE1000 MG PO
== END | disposition home or self-care (01) ==
LOC: RAD 16:06
DX: M54.5 Low back pain (principal)

== ENCOUNTER → 2018-02-15 | Day surgery (SDC) | payer OTHER ==
[~2018-02-15] VITALS: Ht 180.3 cm; Wt 94.3 kg
--- NOTE | ~2018-02-15 | PROC NOTE ---
[place], [place] PROCEDURE NOTE NAME: [facility] SCHERER SR[id number] UN[facility] #: [id number] ROOM: DOCTOR: JESSE LOPEZ MD BIRTHDATE: [birth year] DOS: 02/15/2018 PROCEDURE: Flexible sigmoidoscopy. INDICATION OF PROCEDURE: Colon cancer screening. Informed consent was obtained from the patient after indication of procedure, the alternatives and potential complications were explained to him. PROCEDURE MEDICATION: Sedation was administered by Anesthesiology Department. Scope used was Olympus pediatric colonoscope variable stiffness GIF-180, depth of insertion was to the distal sigmoid colon due to the poor prep. FINDINGS: After adequate sedation, the patient was placed in left lateral decubitus position. Rectal examination showed a normal sphincter tone and no external hemorrhoids. Scope was introduced into the rectum, then advanced to the distal sigmoid colon only due to poor prep and presence of solid stools. The visualized mucosa appeared normal. The scope was withdrawn after the rectum was decompressed. The patient tolerated the procedure well. IMPRESSION: Incomplete exam due to poor prep, we reached only the distal sigmoid colon. PLAN: Reschedule colonoscopy with a better prep, preferably a 2-day prep and make sure the patient is compliant with the instructions. Office followup will be scheduled p.r.n. JESSE LOPEZ MD CM:PROCNOTE:PROCEDURE NOTE [id number] 0807 ALMA CRUMP MD
[2018-02-15 06:30] VITALS: BP 154/99
[2018-02-15 07:55] VITALS: BP 141/93
[2018-02-15 08:10] VITALS: BP 142/90
[2018-02-15 08:25] VITALS: BP 146/90
== END | disposition home or self-care (01) ==
LOC: SDC 02-11 08:00
DX: Z12.11 Encounter for screening for malignant neoplasm of colon (principal); I10 Essential (primary) hypertension; I25.10 Atherosclerotic heart disease of native coronary artery without angina pectoris; I25.2 Old myocardial infarction; E11.9 Type 2 diabetes mellitus without complications; E78.00 Pure hypercholesterolemia, unspecified; J44.9 Chronic obstructive pulmonary disease, unspecified; M19.90 Unspecified osteoarthritis, unspecified site; Z95.5 Presence of coronary angioplasty implant and graft; Z82.49 Family history of ischemic heart disease and other diseases of the circulatory system; Z83.3 Family history of diabetes mellitus; Z80.1 Family history of malignant neoplasm of trachea, bronchus and lung; Z79.82 Long term (current) use of aspirin; Z79.899 Other long term (current) drug therapy; Z79.4 Long term (current) use of insulin

== ENCOUNTER 2018-04-03 14:14 | Emergency (ER) | payer OTHER ==
[~2018-04-03] VITALS: Wt 94.3 kg
[2018-04-03 14:15] VITALS: BP 178/113
== END 2018-04-03 15:38 | disposition home or self-care (01) ==
LOC: ED 14:14
DX: M25.522 Pain in left elbow (principal); E11.9 Type 2 diabetes mellitus without complications; I25.2 Old myocardial infarction; I25.10 Atherosclerotic heart disease of native coronary artery without angina pectoris; I10 Essential (primary) hypertension; J44.9 Chronic obstructive pulmonary disease, unspecified; Z88.4 Allergy status to anesthetic agent; Z79.82 Long term (current) use of aspirin; Z79.4 Long term (current) use of insulin; Z79.899 Other long term (current) drug therapy; Z79.84 Long term (current) use of oral hypoglycemic drugs; Z90.49 Acquired absence of other specified parts of digestive tract; X50.1XXA Overexertion from prolonged static or awkward postures, initial encounter; Y93.89 Activity, other specified; Y92.89 Other specified places as the place of occurrence of the external cause; Y99.8 Other external cause status

== ENCOUNTER 2018-05-28 08:43 | Emergency (ER) | payer OTHER ==
[~2018-05-28] VITALS: Wt 104.3 kg
[~2018-05-28 08:43] MED LIST changes: -GLUCOPHAGE1000 MG PO; +GLUCOPHAGE500 MG PO
[2018-05-28 08:44] VITALS: BP 128/97
[2018-05-28] MEDS ORDERED: NORCO 5-325 TA1 EACH PO (10:25)
[2018-05-28] MEDS ORDERED: Motrin,Rufen800 MG PO (10:25)
[2018-05-28] MEDS ORDERED: AUGMENTIN 875875 MG PO (12:07)
[2018-06-03] MEDS ORDERED: AUGMENTIN 875-875 MG PO (18:10)
[2018-07-05] MEDS ORDERED: BASAG SOL SC (11:28)
[2018-07-05] MEDS ORDERED: NOVOLOG10 ML SC (11:30)
[2018-07-06] MEDS ORDERED: ENOXAPARIN100 MG/1 M SC (14:59)
[2018-07-06] MEDS ORDERED: LIPITOR80 MG PO (14:59)
[2018-07-06] MEDS ORDERED: METOPROLOL TART50 M1 PO (14:59)
== END 2018-05-28 11:55 | disposition home or self-care (01) ==
LOC: ED 08:43
DX: S82.301A Unspecified fracture of lower end of right tibia, initial encounter for closed fracture (principal); I25.10 Atherosclerotic heart disease of native coronary artery without angina pectoris; G89.29 Other chronic pain; J44.9 Chronic obstructive pulmonary disease, unspecified; I10 Essential (primary) hypertension; E78.2 Mixed hyperlipidemia; E11.9 Type 2 diabetes mellitus without complications; Z88.4 Allergy status to anesthetic agent; Z79.4 Long term (current) use of insulin; Z79.899 Other long term (current) drug therapy; Z79.82 Long term (current) use of aspirin; Z79.84 Long term (current) use of oral hypoglycemic drugs; W20.8XXA Other cause of strike by thrown, projected or falling object, initial encounter; Y93.89 Activity, other specified; Y92.89 Other specified places as the place of occurrence of the external cause; Y99.8 Other external cause status

== ENCOUNTER 2018-06-02 00:43 | Emergency (ER) | payer OTHER ==
[~2018-06-02] VITALS: Ht 177.8 cm; Wt 104.3 kg
--- NOTE | ~2018-06-02 | EKG ---
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
[~2018-06-02 00:43] MED LIST changes: +Motrin,Rufen800 MG PO
[2018-06-02 01:36] LABS: BASO # 0.1 10*3/uL (0.0-0.1); BASO % 0.8 % (0.0-1.0); EOS # 0.2 10*3/uL (0.0-0.4); EOS % 2.1 % (1.0-4.0); HEMATOCRIT 46.6 % (42.0-52.0); HEMOGLOBIN 16.1 g/dl (14.0-18.0); LYMPH % 27.4 % (27.0-41.0); MEAN CORPUSCULAR HGB 29.4 pg (27.0-31.0); MEAN CORPUSCULAR HGB CONC 34.5 g/dl (33.0-37.0); MEAN PLATELET VOLUME 10.6 fl (9.6-12.3); MONO # 1.4 10*3/uL (0.1-1.0); MONO % 12.5 % (3.0-9.0); NEUT # 6.3 10*3/uL (2.3-7.9); PLATELET COUNT AUTOMATED 269 10*3/uL (130-400); RED BLOOD COUNT 5.48 10*6/uL (4.50-5.90); RED CELL DISTRI WIDTH 13.2 % (0-14.5); WHITE BLOOD COUNT 11.1 10*3/uL (4.8-10.8)
[2018-06-02 01:53] LABS: ALBUMIN 3.3 gm/dl (3.1-4.5); ALKALINE PHOSPHATASE 90 U/L (45-117); BUN 17 mg/dl (7-24); CHLORIDE 106 mmol/L (98-107); CREATININE 1.37 mg/dL (0.70-1.30); POTASSIUM 3.9 mmol/L (3.5-5.1); SGOT/AST 9 IU/L (3-35); SGPT/ALT 22 U/L (12-78); SODIUM 141 mmol/L (136-145); TOTAL PROTEIN 7.6 gm/dL (6.4-8.2)
[2018-06-02 01:54] LABS: TROPONIN I < 0.015 ng/ml (<0.045)
[2018-06-02 02:37] VITALS: BP 121/82
[2018-06-02] MEDS ORDERED: CLARITIN10 MG PO (03:08)
[2018-06-02] MEDS ORDERED: AUGMENTIN 875875 MG PO (03:08)
[2018-06-03] MEDS ORDERED: AUGMENTIN 875-875 MG PO (18:10)
[2018-07-05] MEDS ORDERED: BASAG SOL SC (11:28)
[2018-07-05] MEDS ORDERED: NOVOLOG10 ML SC (11:30)
[2018-07-06] MEDS ORDERED: ENOXAPARIN100 MG/1 M SC (14:59)
[2018-07-06] MEDS ORDERED: METOPROLOL TART50 M1 PO (14:59)
[2018-07-06] MEDS ORDERED: LIPITOR80 MG PO (14:59)
[2018-11-24] MEDS ORDERED: IBU800 MG PO (19:43)
[2018-11-24] MEDS ORDERED: PREDNISONE50 MG PO (19:43)
== END 2018-06-02 07:05 | disposition home or self-care (01) ==
LOC: ED 00:43
PROVIDERS: Emergency Medicine
DX: S82.301D Unspecified fracture of lower end of right tibia, subsequent encounter for closed fracture with routine healing (principal); R06.02 Shortness of breath; M25.571 Pain in right ankle and joints of right foot; I25.10 Atherosclerotic heart disease of native coronary artery without angina pectoris; J44.9 Chronic obstructive pulmonary disease, unspecified; E78.2 Mixed hyperlipidemia; E11.9 Type 2 diabetes mellitus without complications; I10 Essential (primary) hypertension; Z88.4 Allergy status to anesthetic agent; Z79.899 Other long term (current) drug therapy; W20.8XXD Other cause of strike by thrown, projected or falling object, subsequent encounter

== ENCOUNTER 2018-06-06 15:03 | Inpatient (IN) | payer OTHER ==
[~2018-06-06] VITALS: Ht 180.3 cm; Wt 99.3 kg
--- NOTE | ~2018-06-06 | EKG ---
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
[~2018-06-06 15:03] MED LIST changes: -AMARYL4 MG PO; -AMLODIPINE BESY10 MG PO; -ANTI-DIARRHEAL2 MG PO; -ATORVASTATIN CA80 M1 PO; -BASAG SOL SC; -ENOXAPARIN100 MG/1 M SC; -FREESTYLE LIBR1 EAC2 MC; -HYDROXYZINE PAM25 M1 PO; -LIPITOR80 MG PO; -LISINOPRIL20 MG PO; -LOPRESSOR100 M1 PO; -MAGNESIUM400 MG PO; -METOPROLOL TAR100 M1 PO; -NOVOLOG FL100 UNIT/1 SQ; -NOVOLOG10 ML SC; -PAROXETINE40 MG PO; -PLAVIX75 M1 PO; -SEROQUEL100 MG PO; -SERTRALINE HYDR25 MG PO; -TRULICITY0.75 MG/0. SC; -VITAMIN D5000 UNI1 PO; -XARELTO1 EACH PO; -XARELTO20 M1 PO; -ZESTRIL40 MG PO; -ZOLOFT25 MG PO
[2018-06-06 15:06] VITALS: BP 136/103
[2018-06-06 15:41] LABS: BASO # 0.1 10*3/uL (0.0-0.1); BASO % 0.8 % (0.0-1.0); EOS # 0.3 10*3/uL (0.0-0.4); EOS % 2.5 % (1.0-4.0); HEMATOCRIT 44.6 % (42.0-52.0); HEMOGLOBIN 15.8 g/dl (14.0-18.0); LYMPH # 2.6 10*3/uL (1.3-4.4); LYMPH % 21.5 % (27.0-41.0); MEAN CELL VOLUME 82.3 fl (80.0-94.0); MEAN CORPUSCULAR HGB 29.2 pg (27.0-31.0); MEAN CORPUSCULAR HGB CONC 35.4 g/dl (33.0-37.0); MEAN PLATELET VOLUME 10.3 fl (9.6-12.3); MONO # 1.2 10*3/uL (0.1-1.0); MONO % 10.2 % (3.0-9.0); NEUT # 7.7 10*3/uL (2.3-7.9); NEUT % 64.6 % (47.0-73.0); PLATELET COUNT AUTOMATED 299 10*3/uL (130-400); RED BLOOD COUNT 5.42 10*6/uL (4.50-5.90); RED CELL DISTRI WIDTH 12.8 % (0-14.5); WHITE BLOOD COUNT 11.9 10*3/uL (4.8-10.8)
[2018-06-06 15:55] LABS: ALBUMIN 3.2 gm/dl (3.1-4.5); ALKALINE PHOSPHATASE 106 U/L (45-117); BUN 12 mg/dl (7-24); CHLORIDE 104 mmol/L (98-107); CREATININE 1.13 mg/dL (0.70-1.30); LIPASE 306 U/L (73-393); POTASSIUM 3.6 mmol/L (3.5-5.1); SGOT/AST 7 IU/L (3-35); SGPT/ALT 20 U/L (12-78); SODIUM 136 mmol/L (136-145); TOTAL PROTEIN 7.6 gm/dL (6.4-8.2)
[2018-06-06 16:00] LABS: ACT PARTIAL THROMBO TIME 22.7 SECONDS (20.8-31.5)
[2018-06-06 16:08] LABS: TROPONIN I < 0.015 ng/ml (<0.045)
[2018-06-06 16:47] VITALS: BP 156/108
[2018-06-06] MEDS ORDERED: LISINOPRIL20 MG PO (18:11)
[2018-06-06] MEDS ORDERED: LOPRESSOR100 M1 PO (18:16)
[2018-06-06] MEDS ORDERED: AMARYL4 MG PO (18:19)
[2018-06-06] MEDS ORDERED: PLAVIX75 M1 PO (18:19)
[2018-06-06] MEDS ORDERED: NEURONTIN600 MG PO (18:20)
[2018-06-06] MEDS ORDERED: AMLODIPINE BESY10 MG PO (18:20)
[2018-06-06] MEDS ORDERED: SEROQUEL100 MG PO (18:20)
[2018-06-06] MEDS ORDERED: ATORVASTATIN CA80 M1 PO (18:21)
[2018-06-06] MEDS ORDERED: ZOLOFT25 MG PO (18:21)
[2018-06-06] MEDS ORDERED: TRULICITY0.75 MG/0. SC (18:21)
[2018-06-06] MEDS ORDERED: MAGNESIUM400 MG PO (18:22)
[2018-06-06] MEDS ORDERED: VITAMIN D5000 UNI1 PO (18:22)
[2018-06-06] MEDS ORDERED: CLARITIN10 MG PO (18:23)
[2018-06-06] MEDS ORDERED: ZESTRIL40 MG PO (18:26)
[2018-07-05] MEDS ORDERED: BASAG SOL SC (11:28)
[2018-07-05] MEDS ORDERED: NOVOLOG10 ML SC (11:30)
[2018-07-06] MEDS ORDERED: ENOXAPARIN100 MG/1 M SC (14:59)
[2018-07-06] MEDS ORDERED: METOPROLOL TART50 M1 PO (14:59)
[2018-07-06] MEDS ORDERED: LIPITOR80 MG PO (14:59)
[2018-11-24] MEDS ORDERED: PREDNISONE50 MG PO (19:43)
[2018-11-24] MEDS ORDERED: IBU800 MG PO (19:43)
== END 2018-06-06 19:40 | disposition home or self-care (01) | DRG 300 ==
LOC: ED 15:03 → EDHOLD 15:24 → 4E 17:05
PROVIDERS: Emergency Medicine; ADMIT Internal Medicine
DX: I82.401 Acute embolism and thrombosis of unspecified deep veins of right lower extremity (principal); E87.2 Acidosis; I10 Essential (primary) hypertension; G89.29 Other chronic pain; M54.9 Dorsalgia, unspecified; G47.33 Obstructive sleep apnea (adult) (pediatric); E11.65 Type 2 diabetes mellitus with hyperglycemia; E78.2 Mixed hyperlipidemia; I25.10 Atherosclerotic heart disease of native coronary artery without angina pectoris; Z88.4 Allergy status to anesthetic agent; Z90.49 Acquired absence of other specified parts of digestive tract; Z95.5 Presence of coronary angioplasty implant and graft; Z82.49 Family history of ischemic heart disease and other diseases of the circulatory system; Z80.1 Family history of malignant neoplasm of trachea, bronchus and lung; Z83.3 Family history of diabetes mellitus; Z79.82 Long term (current) use of aspirin; Z79.899 Other long term (current) drug therapy; Z79.02 Long term (current) use of antithrombotics/antiplatelets; Z79.84 Long term (current) use of oral hypoglycemic drugs

== ENCOUNTER → 2018-06-06 | Outpatient (CLI) | payer OTHER ==
[~2018-06-06] MED LIST changes: +AMARYL4 MG PO; +AMLODIPINE BESY10 MG PO; +ANTI-DIARRHEAL2 MG PO; +ATORVASTATIN CA80 M1 PO; +AUGMENTIN 875-875 MG PO; +BASAG SOL SC; +ENOXAPARIN100 MG/1 M SC; +FREESTYLE LIBR1 EAC2 MC; +HYDROXYZINE PAM25 M1 PO; +LIPITOR80 MG PO; +LISINOPRIL20 MG PO; +LOPRESSOR100 M1 PO; +MAGNESIUM400 MG PO; +METOPROLOL TAR100 M1 PO; +NOVOLOG FL100 UNIT/1 SQ; +NOVOLOG10 ML SC; +PAROXETINE40 MG PO; +PLAVIX75 M1 PO; +SEROQUEL100 MG PO; +SERTRALINE HYDR25 MG PO; +TRULICITY0.75 MG/0. SC; +VITAMIN D5000 UNI1 PO; +XARELTO1 EACH PO; +XARELTO20 M1 PO; +ZESTRIL40 MG PO; +ZOLOFT25 MG PO
== END | disposition home or self-care (01) ==
LOC: US 13:00
DX: I82.431 Acute embolism and thrombosis of right popliteal vein (principal)

== ENCOUNTER 2018-06-20 21:02 | Inpatient (IN) | payer OTHER ==
[2018-06-20] VITALS (11 sets, daily range): BP systolic 142–180; BP diastolic 85–115
[~2018-06-20] VITALS: Ht 177.8 cm; Wt 101.3 kg
--- NOTE | ~2018-06-20 | EKG ---
[place], [place] ELECTROCARDIOGRAM REPORT NAME: YOJANA SCHERER SR, V UNIT #: [id number] ROOM: 402 DOCTOR: EPIPHANY DRAFT REPORT BIRTHDATE: [birth year] [facility] Test Date: 2018-06-21 Test Time: 00:02:08 Pat Name: YOJANA SCHERER Department: Room: 402 Gender: M Vp Of Customer Experience Strategy: Giselle Reddy : 1965 Requested By: NILS CROOK Order Number: [id number] Reading MD: Tavo Pimentel MD Measurements Intervals [place] Rate: 101 P: 51 [place]: 149 QRS: 31 QRSD: 108 T: 145 QT: 308 QTc: 399 Interpretive Statements Sinus tachycardia Borderline low voltage, extremity leads Nonspecific ST-T changes No change from earlier ECG this date Electronically Signed On 06-21-2018 16:13:10 PST by Tavo Pimentel MD CM:EKGRPT:ELECTROCARDIOGRAM REPORT 0002 1613 NILS CROOK MD EPIPHANY DRAFT REPORT NILS CROOK MD
--- NOTE | ~2018-06-20 | PR ---
[place], [place] PROGRESS NOTE NAME: YOJANA SCHERER SR, V [facility] #: [id number] UNIT #: [id number] ROOM: 402 DOCTOR: MACIEJ SMALLS MD BIRTHDATE: [birth year] DOS: 06/23/2018 SUBJECTIVE: The patient had hypertension and has currently been getting medications that include 100 mg of metoprolol b.i.d., amlodipine 10 mg daily, Imdur 60 mg q.a.m. and his other medications. He walked in the hallways, no breathing difficulty. Has not been any chest pain, dizziness or any headaches. PHYSICAL EXAMINATION: GENERAL: The patient is lying comfortably in bed. Complexion is fine. VITAL SIGNS: Temperature is normal, pulse is 84 and regular, blood pressure 121/75. Previous blood pressures today have been normal. NECK: Normal JVP. LUNGS: Clear. EXTREMITIES: No edema in the lower extremities. IMPRESSION: Hypertension, now is well controlled and current medications will be continued. MACIEJ SMALLS MD CM:PNTRANS 1656 005 MACIEJ SMALLS MD 06/24/18 0052 interface
--- NOTE | ~2018-06-20 | EKG ---
[place], [place] ELECTROCARDIOGRAM REPORT NAME: YOJANA SCHERER SR, V UNIT #: [id number] ROOM: 402 DOCTOR: CLAREANY DRAFT REPORT BIRTHDATE: [birth year] [facility] Test Date: 2018-06-21 Test Time: 03:09:41 Pat Name: YOJANA SCHERER Department: Room: 402 Gender: M Studio Receptionist: Tavo Teresa : 1965 Requested By: NILS CROOK Order Number: [id number] Reading MD: Tavo Pimentel MD Measurements Intervals [place] Rate: 99 P: 51 [place]: 152 QRS: 17 QRSD: 90 T: 118 QT: 371 QTc: 477 Interpretive Statements Sinus rhythm Inferior infarct, old Compared to ECG 06/20/2018 No significant change Electronically Signed On 06-21-2018 16:14:24 PST by Tavo Pimentel MD CM:EKGRPT:ELECTROCARDIOGRAM REPORT [id number] 1614 NILS CROOK MD EPIPHANY DRAFT REPORT NILS CROOK MD
--- NOTE | ~2018-06-20 | PR ---
[place], [place] PROGRESS NOTE NAME: YOJANA SCHERER SR, [id number] UNIT #: [id number] ROOM: 402 DOCTOR: MACIEJ SMALLS MD BIRTHDATE: [birth year] DOS: 06/22/2018 SUBJECTIVE: He had a little bit of chest pain before he was admitted to the hospital, he feels fine. His breathing is okay. He has not had any palpitation or dizziness. He took a shower and walked in the hallway somewhat without chest pain, but was short of breath. PHYSICAL EXAMINATION: GENERAL: Reveals a patient who is very pleasant, alert, oriented. VITAL SIGNS: Pulse is 88 and regular, blood pressure 168/74, previous blood pressure was somewhat elevated. NECK: JVP is normal. LUNGS: Breath sounds are diminished with a few adventitious sounds. EXTREMITIES: No edema of the lower extremity. IMPRESSION: 1. Hypertension seems better controlled. 2. There is no evidence of heart failure. 3. Chest pain is most likely noncardiac. MACIEJ SMALLS MD CM:PNTRANS 1819 1441 MACIEJ SMALLS MD 06/23/18 1441 interface
--- NOTE | ~2018-06-20 | EKG ---
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
--- NOTE | ~2018-06-20 | CON ---
[place], [place] REPORT OF CONSULTATION NAME: YOJANA SCHERER SR, [facility] [id number] UNIT #: [id number] ROOM: 402 DOCTOR: MACIEJ SMALLS MD BIRTHDATE: [birth year] DOS: HISTORY OF PRESENT ILLNESS: This is a 52-year-old -[place] man with a history of coronary artery disease. He had a small stent deployed in the diagonal branch at [facility]. At that time, he was found to have a positive stress test, which was performed because of chest pain. He has had a stress test, which probably in the past had shown inferior wall ischemia, but he is asymptomatic. He has diabetes mellitus type 2, essential hypertension, obesity, hyperlipidemia, chronic back pain. He has never had a stroke or heart attack. He had recently developed DVT of the right leg, because of an ankle fracture. He has hyperlipidemia, obstructive sleep apnea, depression, COPD. He does smoke cigarettes. He had gone to see his doctor who had told him to go to the ER should he have any problems. He had developed lower retrosternal chest tightness as if somebody was sitting on it. This lasted all day, yesterday when he went to sleep, he had and when he woke up this morning, he is still had the same feeling and stayed with him for many, many hours and it is slowly subsiding now. He had no sweating, palpitations, loss of consciousness or swelling of the lower extremities. HOME MEDICATIONS: Include amlodipine, aspirin, atorvastatin, clopidogrel, gabapentin, glimepiride, isosorbide mononitrate, loratadine, magnesium oxide, metoprolol tartrate and few other medications. PHYSICAL EXAMINATION: GENERAL: This is a patient who is alert, oriented. He is mildly overweight. He is very pleasant, quiet. His complexion is fine. There is no cyanosis or jaundice. There is no thyromegaly or finger clubbing. VITAL SIGNS: Pulse is 96 regular, blood pressure 108/106. Highest blood pressure was 180/115 yesterday. NECK: Normal JVP. No bruit in the neck. HEART: There is no cardiomegaly, no murmurs are present. EXTREMITIES: He has good pedal pulses. No edema in the lower extremities. ABDOMEN: Supple and nontender. LUNGS: Clear to percussion and auscultation. Reveals few adventitious sounds. IMAGING STUDIES: An ECG showed normal sinus rhythm and old inferior wall myocardial infarction. Troponin I levels are normal. IMPRESSION: This patient had very atypical chest symptoms for myocardial ischemia. He has ruled out for acute myocardial infarction. I think there are some symptoms suggestive of upper GI etiology such as acid reflux or esophagitis. I do not recommend any further cardiac workup. I thank you on behalf of Dr. Esteban for this consult. [place], [place] REPORT OF CONSULTATION NAME: NIESHA SOFIAYOJANA Chauhan UNIT #: [id number] ROOM: 402 DOCTOR: MACIEJ SMALLS MD BIRTHDATE: [birth year] MACIEJ SMALLS MD CM:CONSTR:REPORT OF CONSULTATION 16 06/22/18 1636 interface IGGY ESTEBAN MD
--- NOTE | ~2018-06-20 | PR ---
[place], [place] PROGRESS NOTE NAME: YOJANA SCHERER SR, V [facility] #: [id number] UNIT #: [id number] ROOM: 402 DOCTOR: MACIEJ SMALLS MD BIRTHDATE: [birth year] DOS: 06/24/2018 SUBJECTIVE: He feels well. He does not have any breathing difficulty. No chest pain. No orthopnea or swelling in the legs. Eating well. Mood is quiet, which is his demeanor. PHYSICAL EXAMINATION: GENERAL: This is a patient who is alert, oriented. VITAL SIGNS: Afebrile, pulse is 80 regular, blood pressure 132/66. NECK: JVP is normal. LUNGS: Fairly clear with good breath sounds. EXTREMITIES: No edema in the lower extremities. IMPRESSION: Hypertension, now well controlled. He is on metoprolol 100 b.i.d. and Norvasc 10 mg daily. No new recommendations. MACIEJ SMALLS MD CM:PNTRANS [id number] MACIEJ SMALLS MD 06/25/18 0124 interface
--- NOTE | ~2018-06-20 | PR ---
[place], [place] PROGRESS NOTE NAME: YOJANA SCHERER SR, V [facility] #: [id number] UNIT #: [id number] ROOM: 402 DOCTOR: VIRA LANE DPM BIRTHDATE: [birth year] DOS: 06/22/2018 SUBJECTIVE: The patient was seen for followup of fracture of medial malleolus, right ankle. The patient states the ankle is comfortable as he is feeling better after being admitted. The patient states that after his visit on at the office, he went home and was feeling chest pain and short of breath and subsequently went to the Emergency Room. The patient subsequently was found to have a pulmonary embolism and is being treated with Lovenox. OBJECTIVE FINDINGS: There is mild edema to the right ankle, mild pain still to the medial malleolar fracture, but improving. Radiographs revealed the fracture of the medial malleolus. The abrasion to the medial right ankle is intact at this time. CTA of the chest revealed filling defect within the bilateral main pulmonary arteries as well as left lower lobe segmental and subsegmental pulmonary artery. Venous Doppler bilateral leg revealed acute partially occlusive DVT within the right tibioperoneal trunk, peroneal and posterior tibial veins. ASSESSMENT: Pulmonary embolism; deep vein thrombosis, right leg post-fracture of medial malleolus. PLAN: Evaluation and management. Internal Medicine is treating the patient's pulmonary embolism and DVT. The patient is to limit activity to the fracture site and we will follow with the patient accordingly. VIRA LANE DPM CM:VANDA [id number] 06/22/18 1559 interface
[~2018-06-20 21:02] MED LIST changes: +AMARYL4 MG PO; +AMLODIPINE BESY10 MG PO; +ATORVASTATIN CA80 M1 PO; +LISINOPRIL20 MG PO; +LOPRESSOR100 M1 PO; +MAGNESIUM400 MG PO; +PLAVIX75 M1 PO; +SEROQUEL100 MG PO; +TRULICITY0.75 MG/0. SC; +VITAMIN D5000 UNI1 PO; +ZESTRIL40 MG PO; +ZOLOFT25 MG PO
[2018-06-20 21:25] LABS: BASO # 0.1 10*3/uL (0.0-0.1); BASO % 0.5 % (0.0-1.0); EOS # 0.3 10*3/uL (0.0-0.4); EOS % 2.7 % (1.0-4.0); HEMATOCRIT 45.1 % (42.0-52.0); HEMOGLOBIN 15.4 g/dl (14.0-18.0); LYMPH # 2.7 10*3/uL (1.3-4.4); MEAN CELL VOLUME 83.5 fl (80.0-94.0); MEAN CORPUSCULAR HGB 28.5 pg (27.0-31.0); MEAN CORPUSCULAR HGB CONC 34.1 g/dl (33.0-37.0); MEAN PLATELET VOLUME 10.4 fl (9.6-12.3); MONO # 1.4 10*3/uL (0.1-1.0); MONO % 11.5 % (3.0-9.0); NEUT # 7.6 10*3/uL (2.3-7.9); NEUT % 62.9 % (47.0-73.0); PLATELET COUNT AUTOMATED 297 10*3/uL (130-400); RED CELL DISTRI WIDTH 12.9 % (0-14.5); WHITE BLOOD COUNT 12.1 10*3/uL (4.8-10.8)
[2018-06-20 21:38] LABS: ACT PARTIAL THROMBO TIME 29.4 SECONDS (20.8-31.5); INTERNATIONAL NORM RATIO 1.1 (2.0-3.5)
[2018-06-20 21:49] LABS: ALBUMIN 3.1 gm/dl (3.1-4.5); ALKALINE PHOSPHATASE 107 U/L (45-117); BUN 9 mg/dl (7-24); CHLORIDE 103 mmol/L (98-107); CREATININE 1.19 mg/dL (0.70-1.30); POTASSIUM 3.4 mmol/L (3.5-5.1); SGOT/AST 8 IU/L (3-35); SGPT/ALT 20 U/L (12-78); SODIUM 138 mmol/L (136-145); TOTAL PROTEIN 7.5 gm/dL (6.4-8.2)
[2018-06-20 21:51] LABS: TROPONIN I < 0.015 ng/ml (<0.045)
[2018-06-20 23:15] LABS: ABG BASE EXCESS 2.5 mmol/L (-2.0-2.0); ABG HCO3 25.4 mmol/l (22-26); ABG O2 SATURATION 98.2 % (95-97); ARTERIAL BLOOD GAS PCO2 35.1 mmHg (35-45); ARTERIAL BLOOD GAS PH 7.472 (7.35-7.45); ARTERIAL BLOOD GAS PO2 82.9 mmHg (80-90)
[2018-06-21] VITALS (7 sets, daily range): BP systolic 108–180; BP diastolic 88–109
[2018-06-21] MEDS ORDERED: FREESTYLE LIBR1 EAC2 MC (01:08)
[2018-06-21] MEDS ORDERED: ANTI-DIARRHEAL2 MG PO (01:13)
[2018-06-21] MEDS ORDERED: HYDROXYZINE PAM25 M1 PO (01:16)
[2018-06-21] MEDS ORDERED: NOVOLOG FL100 UNIT/1 SQ (01:23)
[2018-06-21 03:17] LABS: BASO # 0.1 10*3/uL (0.0-0.1); BASO % 0.7 % (0.0-1.0); EOS # 0.3 10*3/uL (0.0-0.4); EOS % 2.7 % (1.0-4.0); HEMATOCRIT 43.9 % (42.0-52.0); HEMOGLOBIN 14.9 g/dl (14.0-18.0); LYMPH # 2.7 10*3/uL (1.3-4.4); LYMPH % 26.1 % (27.0-41.0); MEAN CELL VOLUME 84.3 fl (80.0-94.0); MEAN CORPUSCULAR HGB 28.6 pg (27.0-31.0); MEAN CORPUSCULAR HGB CONC 33.9 g/dl (33.0-37.0); MEAN PLATELET VOLUME 10.4 fl (9.6-12.3); MONO # 1.3 10*3/uL (0.1-1.0); MONO % 12.1 % (3.0-9.0); NEUT # 6.1 10*3/uL (2.3-7.9); NEUT % 58.2 % (47.0-73.0); PLATELET COUNT AUTOMATED 285 10*3/uL (130-400); RED BLOOD COUNT 5.21 10*6/uL (4.50-5.90); RED CELL DISTRI WIDTH 12.9 % (0-14.5); WHITE BLOOD COUNT 10.5 10*3/uL (4.8-10.8)
[2018-06-21 03:40] LABS: BUN 8 mg/dl (7-24); CHLORIDE 104 mmol/L (98-107); CHOLESTEROL 168 mg/dL (<200); CREATININE 1.09 mg/dL (0.70-1.30); FREE T4 0.93 ng/dl (0.76-1.46); HDL CHOLESTEROL 31 mg/dl (40-60); LDL CHOLESTEROL 80 mg/dL (9-159); PHOSPHOROUS 4.1 mg/dL (2.5-4.9); POTASSIUM 3.6 mmol/L (3.5-5.1); SODIUM 140 mmol/L (136-145); TRIGLYCERIDES 285 mg/dl (<150); VLDL CHOLESTEROL 57 mg/dL (6-40)
[2018-06-21 08:06] LABS: VITAMIN D, 25-HYDROXY 24.1 ng/mL (30-100)
[2018-06-21] MEDS ORDERED: METOPROLOL TAR100 M1 PO (12:22)
[2018-06-21] MEDS ORDERED: SERTRALINE HYDR25 MG PO (14:55)
[2018-06-21] MEDS ORDERED: PAROXETINE40 MG PO (15:00)
[2018-06-21] MEDS ORDERED: LISINOPRIL20 MG PO (15:02)
[2018-06-21] MEDS ORDERED: LIPITOR80 MG PO (15:04)
[2018-06-22] VITALS: BP 150/104
[2018-06-22 06:54] LABS: BASO # 0.1 10*3/uL (0.0-0.1); BASO % 0.9 % (0.0-1.0); EOS # 0.5 10*3/uL (0.0-0.4); EOS % 7.5 % (1.0-4.0); HEMATOCRIT 45.6 % (42.0-52.0); HEMOGLOBIN 15.1 g/dl (14.0-18.0); LYMPH # 2.6 10*3/uL (1.3-4.4); LYMPH % 36.9 % (27.0-41.0); MEAN CELL VOLUME 84.9 fl (80.0-94.0); MEAN CORPUSCULAR HGB 28.1 pg (27.0-31.0); MEAN CORPUSCULAR HGB CONC 33.1 g/dl (33.0-37.0); MEAN PLATELET VOLUME 10.7 fl (9.6-12.3); MONO # 0.9 10*3/uL (0.1-1.0); MONO % 13.5 % (3.0-9.0); NEUT # 2.8 10*3/uL (2.3-7.9); NEUT % 40.9 % (47.0-73.0); PLATELET COUNT AUTOMATED 253 10*3/uL (130-400); RED BLOOD COUNT 5.37 10*6/uL (4.50-5.90); WHITE BLOOD COUNT 6.9 10*3/uL (4.8-10.8)
[2018-06-22 07:25] LABS: BUN 10 mg/dl (7-24); CHLORIDE 105 mmol/L (98-107); CREATININE 0.97 mg/dL (0.70-1.30); POTASSIUM 3.6 mmol/L (3.5-5.1); SODIUM 139 mmol/L (136-145)
[2018-06-22 08:00] VITALS: BP 164/110
[2018-06-22 12:00] VITALS: BP 112/64
[2018-06-22 16:00] VITALS: BP 116/74
[2018-06-22 16:06] LABS: ANTICARDIOLIPIN AB, IGG, QN <9 GPL U/mL (0-14); ANTICARDIOLIPIN AB, IGM, QN <9 MPL U/mL (0-12); CARDIOLIPIN AB IGA 161836 <9 APL U/mL (0-11)
[2018-06-22 20:00] VITALS: BP 121/77
[2018-06-23] VITALS: BP 106/63
[2018-06-23 08:00] VITALS: BP 132/80
[2018-06-23 08:10] LABS: ANTI-THROMBIN III ACTIVITY 112 % (75-135); PROTEIN S, FREE 103 % (57-157); PROTEIN S, TOTAL 114 % (60-150)
[2018-06-23 12:00] VITALS: BP 121/75
[2018-06-23 16:00] VITALS: BP 128/82
[2018-06-23 17:07] LABS: PTT-LA 42.5 sec (0.0-51.9)
[2018-06-23 20:00] VITALS: BP 125/82
[2018-06-24] VITALS: BP 111/75
[2018-06-24 08:00] VITALS: BP 132/66
[2018-06-24 09:09] LABS: DVVTMIXRFX CHG
[2018-06-24 12:00] VITALS: BP 118/77
[2018-06-24] MEDS ORDERED: METOPROLOL TART50 M1 PO (12:34)
[2018-06-24] MEDS ORDERED: XARELTO1 EACH PO (12:34)
[2018-06-24] MEDS ORDERED: XARELTO20 M1 PO (12:36)
[2018-06-24] MEDS ORDERED: ENOXAPARIN100 MG/1 M SC (13:25)
[2018-06-25 07:11] LABS: LUPUS REFLEX INTERPRETATION Comment: (.)
[2018-07-05] MEDS ORDERED: BASAG SOL SC (11:28)
[2018-07-05] MEDS ORDERED: NOVOLOG10 ML SC (11:30)
[2018-07-06] MEDS ORDERED: METOPROLOL TART50 M1 PO (14:59)
[2018-07-06] MEDS ORDERED: ENOXAPARIN100 MG/1 M SC (14:59)
[2018-07-06] MEDS ORDERED: LIPITOR80 MG PO (14:59)
[2018-11-24] MEDS ORDERED: PREDNISONE50 MG PO (19:43)
[2018-11-24] MEDS ORDERED: IBU800 MG PO (19:43)
== END 2018-06-24 15:27 | disposition home or self-care (01) | DRG 304 ==
LOC: ED 21:02 → 4E 23:34 → EDHOLD 23:34 → 4E 06-21 00:09
PROVIDERS: Emergency Medicine Emergency Medical Services; Family Medicine; Internal Medicine Nephrology; ADMIT Internal Medicine
DX: I16.0 Hypertensive urgency (principal); I26.99 Other pulmonary embolism without acute cor pulmonale; E44.1 Mild protein-calorie malnutrition; R65.10 Systemic inflammatory response syndrome (SIRS) of non-infectious origin without acute organ dysfunction; R07.9 Chest pain, unspecified; I10 Essential (primary) hypertension; E87.6 Hypokalemia; M79.89 Other specified soft tissue disorders; I25.10 Atherosclerotic heart disease of native coronary artery without angina pectoris; E78.2 Mixed hyperlipidemia; F32.9 Major depressive disorder, single episode, unspecified; J44.9 Chronic obstructive pulmonary disease, unspecified; E66.9 Obesity, unspecified; F17.210 Nicotine dependence, cigarettes, uncomplicated; M54.9 Dorsalgia, unspecified; G89.29 Other chronic pain; G47.33 Obstructive sleep apnea (adult) (pediatric); X58.XXXD Exposure to other specified factors, subsequent encounter; E11.65 Type 2 diabetes mellitus with hyperglycemia; Z68.31 Body mass index [BMI] 31.0-31.9, adult; S82.891D Other fracture of right lower leg, subsequent encounter for closed fracture with routine healing; I25.2 Old myocardial infarction; Z88.4 Allergy status to anesthetic agent; Z86.718 Personal history of other venous thrombosis and embolism; Z90.49 Acquired absence of other specified parts of digestive tract; Z95.5 Presence of coronary angioplasty implant and graft; Z82.49 Family history of ischemic heart disease and other diseases of the circulatory system; Z80.1 Family history of malignant neoplasm of trachea, bronchus and lung; Z83.3 Family history of diabetes mellitus; Z91.19 Patient's noncompliance with other medical treatment and regimen; Z79.82 Long term (current) use of aspirin; Z79.899 Other long term (current) drug therapy

== ENCOUNTER 2018-07-30 20:08 | Emergency (ER) | payer OTHER ==
[~2018-07-30] VITALS: Ht 177.8 cm; Wt 98.9 kg
[~2018-07-30 20:08] MED LIST changes: +ANTI-DIARRHEAL2 MG PO; +BASAG SOL SC; +ENOXAPARIN100 MG/1 M SC; +FREESTYLE LIBR1 EAC2 MC; +HYDROXYZINE PAM25 M1 PO; +LIPITOR80 MG PO; +METOPROLOL TAR100 M1 PO; +NOVOLOG FL100 UNIT/1 SQ; +NOVOLOG10 ML SC; +PAROXETINE40 MG PO; +SERTRALINE HYDR25 MG PO; +XARELTO1 EACH PO; +XARELTO20 M1 PO
[2018-07-30 20:11] VITALS: BP 174/112
[2018-07-30 21:00] LABS: BASO # 0.1 10*3/uL (0.0-0.1); BASO % 0.5 % (0.0-1.0); EOS # 0.2 10*3/uL (0.0-0.4); EOS % 2.2 % (1.0-4.0); HEMATOCRIT 38.1 % (42.0-52.0); HEMOGLOBIN 12.9 g/dl (14.0-18.0); LYMPH # 3.4 10*3/uL (1.3-4.4); LYMPH % 32.7 % (27.0-41.0); MEAN CELL VOLUME 83.9 fl (80.0-94.0); MEAN CORPUSCULAR HGB 28.4 pg (27.0-31.0); MEAN CORPUSCULAR HGB CONC 33.9 g/dl (33.0-37.0); MEAN PLATELET VOLUME 10.4 fl (9.6-12.3); MONO # 1.4 10*3/uL (0.1-1.0); MONO % 13.4 % (3.0-9.0); NEUT # 5.2 10*3/uL (2.3-7.9); NEUT % 50.6 % (47.0-73.0); PLATELET COUNT AUTOMATED 258 10*3/uL (130-400); RED BLOOD COUNT 4.54 10*6/uL (4.50-5.90); RED CELL DISTRI WIDTH 13.1 % (0-14.5); WHITE BLOOD COUNT 10.3 10*3/uL (4.8-10.8)
[2018-07-30 21:09] LABS: ACT PARTIAL THROMBO TIME 27.4 SECONDS (20.8-31.5); INTERNATIONAL NORM RATIO 0.9 (2.0-3.5)
[2018-07-30 21:28] LABS: ALBUMIN 2.7 gm/dl (3.1-4.5); ALKALINE PHOSPHATASE 88 U/L (45-117); BUN 11 mg/dl (7-24); CHLORIDE 105 mmol/L (98-107); CREATININE 1.17 mg/dL (0.70-1.30); POTASSIUM 3.9 mmol/L (3.5-5.1); SGOT/AST 11 IU/L (3-35); SGPT/ALT 24 U/L (12-78); SODIUM 140 mmol/L (136-145); TOTAL PROTEIN 7.4 gm/dL (6.4-8.2)
[2018-11-24] MEDS ORDERED: PREDNISONE50 MG PO (19:43)
[2018-11-24] MEDS ORDERED: IBU800 MG PO (19:43)
== END 2018-07-30 22:10 | disposition home or self-care (01) ==
LOC: ED 20:08
PROVIDERS: Nurse Practitioner Family
DX: S90.01XA Contusion of right ankle, initial encounter (principal); I25.10 Atherosclerotic heart disease of native coronary artery without angina pectoris; J44.9 Chronic obstructive pulmonary disease, unspecified; I10 Essential (primary) hypertension; E78.2 Mixed hyperlipidemia; E11.9 Type 2 diabetes mellitus without complications; Z79.4 Long term (current) use of insulin; Z79.899 Other long term (current) drug therapy; Z88.4 Allergy status to anesthetic agent; Z86.718 Personal history of other venous thrombosis and embolism; X58.XXXA Exposure to other specified factors, initial encounter; Y93.89 Activity, other specified; Y92.89 Other specified places as the place of occurrence of the external cause; Y99.8 Other external cause status

== ENCOUNTER → 2018-08-07 | Outpatient (CLI) | payer OTHER ==
[~2018-08-07] MED LIST changes: +ASPIRIN ADULT L81 M1 PO; +LISINOPRIL40 MG PO
[2018-08-07 13:26] LABS: BILIRUBIN NEGATIVE (NEGATIVE); BLOOD 2+ (NEGATIVE); CLARITY CLEAR (CLEAR); COLOR YELLOW (YELLOW); GLUCOSE 3+ (NEGATIVE); KETONE NEGATIVE (NEGATIVE); LEUKO ESTERASE NEGATIVE (NEGATIVE); NITRITE NEGATIVE (NEGATIVE); SPECIFIC GRAVITY >= 1.030 (1.005-1.030); UROBILINOGEN 0.2 E.U./dl (0.2-1.0)
[2018-08-07 13:51] LABS: BACTERIA TRACE; EPITHELIAL CELLS 0-2; HYALINE CAST 0-2; MUCOUS 2+; WBC 0-2 wbc/hpf (0-5)
[2018-08-07 13:59] LABS: BILIRUBIN, DIRECT < 0.1 mg/dL (0.0-0.2); BUN 10 mg/dl (7-24); CHLORIDE 106 mmol/L (98-107); CHOLESTEROL 221 mg/dL (<200); SGPT/ALT 22 U/L (12-78); SODIUM 140 mmol/L (136-145); TOTAL PROTEIN 7.7 gm/dL (6.4-8.2); TRIGLYCERIDES 262 mg/dl (<150); VLDL CHOLESTEROL 52 mg/dL (6-40)
[2018-08-07 14:01] LABS: ALKALINE PHOSPHATASE 94 U/L (45-117); CREATININE 1.06 mg/dL (0.70-1.30); HDL CHOLESTEROL 32 mg/dl (40-60); LDL CHOLESTEROL 137 mg/dL (9-159); SGOT/AST 9 IU/L (3-35)
[2018-08-07 14:16] LABS: VITAMIN D, 25-HYDROXY 34.7 ng/mL (30-100)
== END | disposition home or self-care (01) ==
LOC: LAB 12:48
PROVIDERS: Internal Medicine
DX: E11.40 Type 2 diabetes mellitus with diabetic neuropathy, unspecified (principal); E11.65 Type 2 diabetes mellitus with hyperglycemia; E78.5 Hyperlipidemia, unspecified; E55.9 Vitamin D deficiency, unspecified

== ENCOUNTER 2018-09-28 00:36 | Inpatient (IN) | payer OTHER ==
[~2018-09-28] VITALS: Ht 177.8 cm; Wt 101.2 kg
[2018-09-28] VITALS (11 sets, daily range): BP systolic 125–160; BP diastolic 64–90
--- NOTE | ~2018-09-28 | EKG ---
[place], [place] ELECTROCARDIOGRAM REPORT NAME: YOJANA SCHERER SR, V UNIT #: [id number] ROOM: 512 DOCTOR: SIMON DRAFT REPORT BIRTHDATE: [birth year] [facility] Test Date: 2018-09-28 Test Time: 06:52:07 Pat Name: YOJANA SCHERER Department: Room: 512 Gender: M Senior Laboratory Technician: DEBBIE : 1965 Requested By: MAXIMO ADDISON Order Number: [id number] Reading MD: Wisam Garland MD Measurements Intervals [place] Rate: 98 P: 34 NM: 162 QRS: 5 QRSD: 77 T: 151 QT: 351 QTc: 449 Interpretive Statements Sinus rhythm Abnormal T, consider ischemia, lateral leads Baseline wander in lead(s) V1 Compared to ECG 07/05/2018 01:49:11 Possible ischemia now present Sinus tachycardia no longer present T-wave abnormality still present Electronically Signed On 09-30-2018 9:36:44 PDT by Wisam Garland MD CM:EKGRPT:ELECTROCARDIOGRAM REPORT [id number] 0936 MAXIMO ROMERO DRAFT REPORT MAXIMO ADDISON DO
--- NOTE | ~2018-09-28 | EKG ---
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
--- NOTE | ~2018-09-28 | EKG ---
[place], [place] ELECTROCARDIOGRAM REPORT NAME: YOJANA SCHERER SR, V UNIT #: [id number] ROOM: 512 DOCTOR: SIMON DRAFT REPORT BIRTHDATE: [birth year] [facility] Test Date: 2018-09-28 Test Time: 03:32:23 Pat Name: YOJANA SCHERER Department: Room: 512 Gender: M Academic Director: : 1965 Requested By: MAXIMO ADDISON Order Number: [id number] Reading MD: Wisam Garland MD Measurements Intervals [place] Rate: 109 P: 40 MN: 156 QRS: 24 QRSD: 84 T: 182 QT: 323 QTc: 436 Interpretive Statements Sinus tachycardia Nonspecific T abnormalities, lateral leads Compared to ECG 07/05/2018 01:49:11 No significant changes Electronically Signed On 09-30-2018 9:36:29 PDT by Wisam Garland MD CM:EKGRPT:ELECTROCARDIOGRAM REPORT [id number] 0936 MAXIMO ROMERO DRAFT REPORT MAXIMO ADDISON DO
--- NOTE | ~2018-09-28 | CON ---
[place], [place] REPORT OF CONSULTATION NAME: [facility]OJANA SCHERER SR[id number] UNIT #: [id number] ROOM: 512 DOCTOR: MACIEJ SMALLS MD BIRTHDATE: [birth year] DOS: 09/28/2018 I am seeing this patient on behalf of Dr. Banks. HISTORY OF PRESENT ILLNESS: This is a 52-year-old -Burkin[place] male with a history of coronary artery disease. He apparently had diarrhea for about 2 days with watery stools, but no nausea or vomiting. He had been drinking plenty of liquids. He had left anterior chest pain that was rather localized and sharp and stabbing in nature. It lasted for 5 minutes. He was sitting at that time and has not recurred. He does not recall any such pain or heaviness in the chest recently. This sharp pain did not radiate to the back, neck or the shoulder and there was no accompanying palpitation, sweating or any dizziness or loss of consciousness. Later, he had an upper abdominal pain that was sharp as well. This did not last for very long. He has not had any PND, orthopnea, or swelling of the lower extremities. The right ankle is sore. He had affected it in April of this year. PAST MEDICAL HISTORY: Coronary artery disease. He had a small stent deployed quite a while ago. He has a diagnosis of COPD, but he has never smoked cigarettes. Depression, DVT, essential hypertension, dyslipidemia, obstructive sleep apnea and does not use a CPAP, pulmonary embolism. SURGICAL HISTORY: Includes carpal tunnel decompression of the right side, appendectomy, cholecystectomy, umbilical herniorrhaphy. HOME MEDICATIONS: Include atorvastatin, Trulicity, gabapentin, glimepiride, insulin aspart and glargine, mag oxide, metoprolol 50 mg b.i.d., Seroquel 150 mg daily, and enoxaparin 100 mg subQ q.12h. PHYSICAL EXAMINATION: GENERAL: This is a patient who is quite, comfortable. He is alert and oriented x 3. There is no cyanosis or jaundice. He is not febrile. VITAL SIGNS: Pulse is regular at 88 beats per minute, blood pressure 143/88. NECK: JVP is normal. AJR is negative. There is no carotid bruit. CARDIAC: Auscultation reveals no murmurs or rubs. Excellent pedal pulses and there is no edema in lower extremities. RESPIRATORY: Lungs are clear to percussion and auscultation. There is no chest wall tenderness. ABDOMEN: Bowel sounds are normal. There is no bruit. The liver is not enlarged. There is very mild tenderness in the epigastrium without guarding or rigidity. Chest x-ray was unremarkable. Three ECGs were done. First ECG shows an old inferior wall VT, T-wave inversion in V1 and aVL and flat T waves in V5 and V6. ECG done earlier this morning showed mild inversion of T waves in V4, V5 and V6. Troponin I levels are normal. Hemoglobin 14.4 g/dL. BUN is 22, creatinine 1.50 down from 1.89. Troponin I levels are normal x 3. [place], [place] REPORT OF CONSULTATION NAME: YOJANA SCHERER SR, V UNIT #: [id number] ROOM: 512 DOCTOR: MACIEJ SMALLS MD BIRTHDATE: [birth year] IMPRESSION: 1. This patient has acute diarrhea, which is settling down. 2. He had atypical sharp, stabbing pain that lasted for 5 minutes. He has ruled out for an acute myocardial infarction. I think this was coming from the chest wall. 3. Renal insufficiency, whether this is acute or not is not clear, but it is improving with hydration. 4. From a cardiac standpoint, this patient may be discharged home. He does not require any further workup. I thank you on behalf of Dr. Garland for this consult. MACIEJ SMALLS MD CM:CONSTR:REPORT OF CONSULTATION 0855 10/29/18 0744 interface
[~2018-09-28 00:36] MED LIST changes: -ASPIRIN ADULT L81 M1 PO; -LISINOPRIL40 MG PO
[2018-09-28 00:51] LABS: BASO # 0.1 10*3/uL (0.0-0.1); BASO % 0.6 % (0.0-1.0); EOS # 0.2 10*3/uL (0.0-0.4); EOS % 1.9 % (1.0-4.0); HEMATOCRIT 43.7 % (42.0-52.0); LYMPH # 2.4 10*3/uL (1.3-4.4); LYMPH % 30.8 % (27.0-41.0); MEAN CELL VOLUME 84.7 fl (80.0-94.0); MEAN CORPUSCULAR HGB 29.1 pg (27.0-31.0); MEAN CORPUSCULAR HGB CONC 34.3 g/dl (33.0-37.0); MEAN PLATELET VOLUME 10.8 fl (9.6-12.3); MONO # 1.1 10*3/uL (0.1-1.0); MONO % 13.6 % (3.0-9.0); NEUT # 4.1 10*3/uL (2.3-7.9); NEUT % 52.8 % (47.0-73.0); PLATELET COUNT AUTOMATED 275 10*3/uL (130-400); RED BLOOD COUNT 5.16 10*6/uL (4.50-5.90); RED CELL DISTRI WIDTH 14.5 % (0-14.5); WHITE BLOOD COUNT 7.8 10*3/uL (4.8-10.8)
[2018-09-28 01:03] LABS: ACT PARTIAL THROMBO TIME 30.1 SECONDS (20.0-32.1); INTERNATIONAL NORM RATIO 0.9 (2.0-3.5)
[2018-09-28 01:08] LABS: ALBUMIN 3.4 gm/dl (3.1-4.5); ALKALINE PHOSPHATASE 91 U/L (45-117); BUN 18 mg/dl (7-24); CHLORIDE 107 mmol/L (98-107); CREATININE 1.89 mg/dL (0.70-1.30); POTASSIUM 3.4 mmol/L (3.5-5.1); SGOT/AST 8 IU/L (3-35); SGPT/ALT 22 U/L (12-78); SODIUM 138 mmol/L (136-145); TOTAL PROTEIN 7.4 gm/dL (6.4-8.2)
[2018-09-28 01:09] LABS: TROPONIN I < 0.015 ng/ml (<0.045)
--- NOTE | 2018-09-28 01:26 | NUR ---
PT RESTING IN BED.PT PLAYING ON HIS PHONE.PT DENIES ANY NEEDS AT THIS TIME.
--- NOTE | 2018-09-28 02:50 | NUR ---
PT DENIE ANY PAIN AT THIS TIME.PT PROVIDED WARM BLANKET.LIGHTS DIMMED FOR COMFORT.
--- NOTE | 2018-09-28 03:52 | NUR ---
PT AMBULATORY TO AND FROM RESTROOM WITH DIFFICULTY.
--- NOTE | 2018-09-28 05:39 | NUR ---
A 52, admitted to 5E, under the services of CLIVE Ramirez DO with a diagnosis of MIKEL, CHEST PAIN, DEHYDRATION. Chief complaint is CHEST PAIN. Patient arrived via stretcher from ER. Monitor applied. Initial assessment completed. Vital signs taken and recorded. CLIVE RAMIREZ DO notified of admission to the unit. Orders received. See assessment for past medical history, medications and allergies. Patient and/or family oriented to unit. [address] visitation policy reviewed. Clothing/patient valuable form completed. JOSE RENTERIA
[2018-09-28 06:26] LABS: BASO % 0.4 % (0.0-1.0); EOS # 0.2 10*3/uL (0.0-0.4); EOS % 2.6 % (1.0-4.0); HEMATOCRIT 42.6 % (42.0-52.0); HEMOGLOBIN 14.4 g/dl (14.0-18.0); LYMPH # 2.2 10*3/uL (1.3-4.4); LYMPH % 32.1 % (27.0-41.0); MEAN CELL VOLUME 85.4 fl (80.0-94.0); MEAN CORPUSCULAR HGB 28.9 pg (27.0-31.0); MEAN CORPUSCULAR HGB CONC 33.8 g/dl (33.0-37.0); MEAN PLATELET VOLUME 10.5 fl (9.6-12.3); MONO # 1.2 10*3/uL (0.1-1.0); MONO % 17.8 % (3.0-9.0); NEUT # 3.2 10*3/uL (2.3-7.9); NEUT % 46.8 % (47.0-73.0); PLATELET COUNT AUTOMATED 246 10*3/uL (130-400); RED BLOOD COUNT 4.99 10*6/uL (4.50-5.90); RED CELL DISTRI WIDTH 14.6 % (0-14.5); WHITE BLOOD COUNT 6.8 10*3/uL (4.8-10.8)
--- NOTE | 2018-09-28 06:37 | NUR ---
CARDIOLOGY CONSULT COMPLETED. DR. GALINDO COVERING FOR DR. ESTEBAN.
[2018-09-28 06:41] LABS: ALBUMIN 3.1 gm/dl (3.1-4.5); ALKALINE PHOSPHATASE 91 U/L (45-117); BUN 15 mg/dl (7-24); CHLORIDE 110 mmol/L (98-107); PHOSPHOROUS 4.1 mg/dL (2.5-4.9); POTASSIUM 3.7 mmol/L (3.5-5.1); SGOT/AST 12 IU/L (3-35); SGPT/ALT 21 U/L (12-78); SODIUM 141 mmol/L (136-145); TOTAL PROTEIN 6.9 gm/dL (6.4-8.2)
--- NOTE | 2018-09-28 09:35 | NUR ---
SLEEPING, NO SXS OF DISTRESS NOTED. CALL LIGHT IN REACH. IVF GOING WITH EASE. BED ALARM MAINTAINED.
--- NOTE | 2018-09-28 15:19 | NUR ---
ON CELL PHONE. NO VOICED COMPLAINTS. CALL LIGHT IN REACH. IVF GOING WITH EASE. BED ALARM ON.
--- NOTE | 2018-09-28 19:50 | NUR ---
24 HR chart check completed.
--- NOTE | 2018-09-28 21:00 | NUR ---
AWAKE, RESTING IN BED WITH NO DISTRESS NOTED. RESPIRATIONS EASY. LUNGS DIMINISHED, CLEAR. PULSE OX 97% RA. TEDS PRESENT AT BEDSIDE. IV FLUIDS INFUSING PER ORDER. CALL LIGHT WITHIN REACH. NO VOICED COMPLAINTS. BED ALARM MAINTAINED FOR SAFETY
--- NOTE | 2018-09-28 21:40 | NUR ---
MEDICATED WITH VISTARIL PER PRN ORDER TO ASSIST WITH SLEEP. WILL MONITOR FOR EFFECTIVENESS
--- NOTE | 2018-09-28 23:00 | NUR ---
VISTARIL APPEARS EFFECTIVE, RESTING WITH EYES CLOSED. RESPIRATIONS EASY. CALL LIGHT WITHIN REACH
[2018-09-29] VITALS: BP 156/82; BP 156/95
--- NOTE | 2018-09-29 | NUR ---
SLEEPING. NO DISTRESS NOTED. RESPIRATIONS EASY. IV FLUIDS MAINTAINED. CALL LIGHT WITHIN REACH
[2018-09-29] MEDS ORDERED: LISINOPRIL40 MG PO (01:51)
[2018-09-29] MEDS ORDERED: ASPIRIN ADULT L81 M1 PO (01:52)
[2018-09-29] MEDS ORDERED: METOPROLOL TAR100 M1 PO (01:52)
--- NOTE | 2018-09-29 06:00 | NUR ---
SLEPT THROUGHOUT NIGHT WITH NO DISTRESS NOTED. RESPIRATIONS EASY. CALL LIGHT WITHIN REACH. NO VOICED COMPLAINTS THIS SHIFT
[2018-09-29 06:57] LABS: BASO % 0.6 % (0.0-1.0); EOS # 0.5 10*3/uL (0.0-0.4); HEMATOCRIT 42.3 % (42.0-52.0); HEMOGLOBIN 13.9 g/dl (14.0-18.0); LYMPH # 2.9 10*3/uL (1.3-4.4); LYMPH % 45.3 % (27.0-41.0); MEAN CELL VOLUME 86.9 fl (80.0-94.0); MEAN CORPUSCULAR HGB 28.5 pg (27.0-31.0); MEAN CORPUSCULAR HGB CONC 32.9 g/dl (33.0-37.0); MEAN PLATELET VOLUME 10.8 fl (9.6-12.3); MONO # 0.8 10*3/uL (0.1-1.0); NEUT # 2.2 10*3/uL (2.3-7.9); NEUT % 34.9 % (47.0-73.0); PLATELET COUNT AUTOMATED 245 10*3/uL (130-400); RED BLOOD COUNT 4.87 10*6/uL (4.50-5.90); RED CELL DISTRI WIDTH 14.8 % (0-14.5); WHITE BLOOD COUNT 6.4 10*3/uL (4.8-10.8)
[2018-09-29 07:31] LABS: BUN 9 mg/dl (7-24); CHLORIDE 112 mmol/L (98-107); POTASSIUM 3.6 mmol/L (3.5-5.1); SODIUM 144 mmol/L (136-145)
[2018-09-29 07:32] LABS: CREATININE 1.05 mg/dL (0.70-1.30)
--- NOTE | 2018-09-29 09:58 | NUR ---
OFFERED TO BE TAKEN TO EXIT IN A WHEELCHAIR, PT DECLINING. STATES HE WANTS TO WALK OUT.
--- NOTE | 2018-09-29 10:05 | NUR ---
Discharge instructions reviewed with patient/family. Patient receptive and verbalizes understanding. Follow-up care arranged. Written instructions given to patient/family. KAYLI MOFFETT
[2018-11-24] MEDS ORDERED: IBU800 MG PO (19:43)
[2018-11-24] MEDS ORDERED: PREDNISONE50 MG PO (19:43)
== END 2018-09-29 10:02 | disposition home or self-care (01) | DRG 640 ==
LOC: ED 00:36 → EDHOLD 04:00 → 5E 04:40
PROVIDERS: Emergency Medicine; Internal Medicine; ADMIT Internal Medicine
DX: E86.0 Dehydration (principal); N17.0 Acute kidney failure with tubular necrosis; E44.1 Mild protein-calorie malnutrition; R07.89 Other chest pain; E11.65 Type 2 diabetes mellitus with hyperglycemia; I10 Essential (primary) hypertension; G47.33 Obstructive sleep apnea (adult) (pediatric); I25.10 Atherosclerotic heart disease of native coronary artery without angina pectoris; E55.9 Vitamin D deficiency, unspecified; F32.9 Major depressive disorder, single episode, unspecified; J44.9 Chronic obstructive pulmonary disease, unspecified; E78.2 Mixed hyperlipidemia; E87.6 Hypokalemia; G89.29 Other chronic pain; M54.9 Dorsalgia, unspecified; Z86.718 Personal history of other venous thrombosis and embolism; I25.2 Old myocardial infarction; Z88.4 Allergy status to anesthetic agent; Z86.711 Personal history of pulmonary embolism; Z90.49 Acquired absence of other specified parts of digestive tract; Z95.5 Presence of coronary angioplasty implant and graft; Z82.49 Family history of ischemic heart disease and other diseases of the circulatory system; Z80.1 Family history of malignant neoplasm of trachea, bronchus and lung; Z83.3 Family history of diabetes mellitus; Z79.899 Other long term (current) drug therapy; Z68.32 Body mass index [BMI] 32.0-32.9, adult

== ENCOUNTER → 2018-11-25 | Outpatient (CLI) | payer OTHER ==
[~2018-11-25] MED LIST changes: +ASPIRIN ADULT L81 M1 PO; +LISINOPRIL40 MG PO
[2018-11-25 12:33] LABS: ALBUMIN 3.6 gm/dl (3.1-4.5); BUN 13 mg/dl (7-24); CHLORIDE 108 mmol/L (98-107); POTASSIUM 3.8 mmol/L (3.5-5.1); SODIUM 138 mmol/L (136-145)
[2018-11-25 12:38] LABS: ALKALINE PHOSPHATASE 92 U/L (45-117); BILIRUBIN, DIRECT < 0.1 mg/dL (0.0-0.2); CHOLESTEROL 199 mg/dL (<200); HDL CHOLESTEROL 35 mg/dl (40-60); LDL CHOLESTEROL 105 mg/dL (9-159); SGOT/AST 23 IU/L (3-35); SGPT/ALT 38 U/L (12-78); TOTAL PROTEIN 7.6 gm/dL (6.4-8.2); TRIGLYCERIDES 294 mg/dl (<150); VLDL CHOLESTEROL 59 mg/dL (6-40)
[2018-11-25 12:45] LABS: BILIRUBIN NEGATIVE (NEGATIVE); BLOOD 1+ (NEGATIVE); CLARITY SL CLOUDY (CLEAR); COLOR YELLOW (YELLOW); GLUCOSE NEGATIVE (NEGATIVE); KETONE NEGATIVE (NEGATIVE); LEUKO ESTERASE NEGATIVE (NEGATIVE); NITRITE NEGATIVE (NEGATIVE); PH 5.5 (5.0-9.0); SPECIFIC GRAVITY >= 1.030 (1.005-1.030); UROBILINOGEN 0.2 E.U./dl (0.2-1.0)
[2018-11-25 13:26] LABS: BACTERIA 1+; MUCOUS 2+
[2018-11-25 13:54] LABS: VITAMIN D, 25-HYDROXY 29.3 ng/mL (30-100)
== END | disposition home or self-care (01) ==
LOC: LAB 11:16 → EDSTATUS 11:17
PROVIDERS: Internal Medicine
DX: E78.5 Hyperlipidemia, unspecified (principal); E55.9 Vitamin D deficiency, unspecified; E11.65 Type 2 diabetes mellitus with hyperglycemia; E11.40 Type 2 diabetes mellitus with diabetic neuropathy, unspecified

== ENCOUNTER 2018-12-11 21:29 | Emergency (ER) | payer OTHER ==
[~2018-12-11] VITALS: Ht 177.8 cm; Wt 99.8 kg
--- NOTE | ~2018-12-11 | EKG ---
[place], [place] ELECTROCARDIOGRAM REPORT NAME: YOJANA SCHERER SR, V UNIT #: [id number] ROOM: DOCTOR: EPIPHANY DRAFT REPORT BIRTHDATE: [birth year] [facility] Test Date: 2018-12-11 Test Time: 23:21:43 Pat Name: YOJANA SCHERER Department: Room: Gender: Quality Head: : 1965 Requested By: PEG BENSON PA-C Order Number: [id number] Reading MD: Júnior Guido MD Measurements Intervals [place] Rate: 81 P: -1 CA: 170 QRS: 8 QRSD: 88 T: 106 QT: 404 QTc: 469 Interpretive Statements Sinus rhythm Nonspecific T abnormalities, lateral leads Electronically Signed On 12-12-2018 11:56:21 PDT by Júnior Guido MD CM:EKGRPT:ELECTROCARDIOGRAM REPORT [id number] 1156 PEG BENSON PA-C EPIPHANY DRAFT REPORT PEG BENSON PA-C
[2018-12-11 23:37] LABS: ALBUMIN 3.9 gm/dl (3.1-4.5); ALKALINE PHOSPHATASE 88 U/L (45-117); BUN 24 mg/dl (7-24); CHLORIDE 103 mmol/L (98-107); CREATININE 0.92 mg/dL (0.70-1.30); POTASSIUM 3.4 mmol/L (3.5-5.1); SGOT/AST 16 IU/L (3-35); SGPT/ALT 45 U/L (12-78); SODIUM 135 mmol/L (136-145); TOTAL PROTEIN 8.2 gm/dL (6.4-8.2)
[2018-12-11 23:39] LABS: TROPONIN I < 0.015 ng/ml (<0.045)
[2018-12-12 00:03] VITALS: BP 158/107
[2018-12-12 00:21] LABS: BASO # 0.1 10*3/uL (0.0-0.1); BASO % 0.9 % (0.0-1.0); EOS # 0.3 10*3/uL (0.0-0.4); EOS % 2.8 % (1.0-4.0); HEMATOCRIT 38.5 % (42.0-52.0); HEMOGLOBIN 12.9 g/dl (14.0-18.0); LYMPH # 3.9 10*3/uL (1.3-4.4); LYMPH % 41.3 % (27.0-41.0); MEAN CELL VOLUME 85.4 fl (80.0-94.0); MEAN CORPUSCULAR HGB 28.6 pg (27.0-31.0); MEAN CORPUSCULAR HGB CONC 33.5 g/dl (33.0-37.0); MEAN PLATELET VOLUME 10.7 fl (9.6-12.3); MONO # 0.8 10*3/uL (0.1-1.0); NEUT # 4.5 10*3/uL (2.3-7.9); NEUT % 46.8 % (47.0-73.0); PLATELET COUNT AUTOMATED 231 10*3/uL (130-400); RED BLOOD COUNT 4.51 10*6/uL (4.50-5.90); WHITE BLOOD COUNT 9.6 10*3/uL (4.8-10.8)
== END 2018-12-12 00:30 | disposition home or self-care (01) ==
LOC: ED 21:29
PROVIDERS: Physician Assistant
DX: I10 Essential (primary) hypertension (principal); Z90.49 Acquired absence of other specified parts of digestive tract; Z98.890 Other specified postprocedural states; Z79.82 Long term (current) use of aspirin; Z79.899 Other long term (current) drug therapy; Z79.4 Long term (current) use of insulin; Z88.4 Allergy status to anesthetic agent

== ENCOUNTER 2019-02-03 13:39 | Emergency (ER) | payer OTHER ==
[~2019-02-03] VITALS: Ht 177.8 cm; Wt 99.8 kg
--- NOTE | ~2019-02-03 | EKG ---
[place], [place] ELECTROCARDIOGRAM REPORT NAME: YOJANA SCHERER SR, V UNIT #: [id number] ROOM: DOCTOR: EPIPHANY DRAFT REPORT BIRTHDATE: [birth year] [facility] Test Date: 2019-02-03 Test Time: 14:31:05 Pat Name: YOJANA SCHERER Department: Room: Gender: Cell Biologist: Danika Eaton : 1965 Requested By: PEG BENSON PA-C Order Number: [id number] Reading MD: Stephanie Ascencio MD Measurements Intervals [place] Rate: 74 P: -12 NM: 153 QRS: 20 QRSD: 86 T: 32 QT: 390 QTc: 433 Interpretive Statements Sinus rhythm Borderline T abnormalities, inferior leads Compared to ECG 12/11/2018 23:21:43 No significant changes Electronically Signed On 02-06-2019 13:24:46 PDT by Stephanie Ascencio MD CM:EKGRPT:ELECTROCARDIOGRAM REPORT 1431 1324 PEG BENSON PA-C EPIPHANY DRAFT REPORT PEG BENSON PA-C
[2019-02-03 13:50] VITALS: BP 142/90
[2019-02-03 14:48] LABS: BASO # 0.1 10*3/uL (0.0-0.1); EOS # 0.5 10*3/uL (0.0-0.4); HEMATOCRIT 44.2 % (42.0-52.0); HEMOGLOBIN 15.1 g/dl (14.0-18.0); LYMPH # 3.5 10*3/uL (1.3-4.4); LYMPH % 34.5 % (27.0-41.0); MEAN CELL VOLUME 84.7 fl (80.0-94.0); MEAN CORPUSCULAR HGB 28.9 pg (27.0-31.0); MEAN CORPUSCULAR HGB CONC 34.2 g/dl (33.0-37.0); MEAN PLATELET VOLUME 10.7 fl (9.6-12.3); MONO # 0.8 10*3/uL (0.1-1.0); MONO % 8.3 % (3.0-9.0); NEUT # 5.2 10*3/uL (2.3-7.9); NEUT % 50.9 % (47.0-73.0); PLATELET COUNT AUTOMATED 272 10*3/uL (130-400); RED BLOOD COUNT 5.22 10*6/uL (4.50-5.90); WHITE BLOOD COUNT 10.1 10*3/uL (4.8-10.8)
[2019-02-03 15:01] LABS: ALBUMIN 3.5 gm/dl (3.1-4.5); ALKALINE PHOSPHATASE 88 U/L (45-117); BUN 7 mg/dl (7-24); CHLORIDE 107 mmol/L (98-107); CREATININE 1.13 mg/dL (0.70-1.30); POTASSIUM 3.8 mmol/L (3.5-5.1); SGOT/AST 11 IU/L (3-35); SGPT/ALT 25 U/L (12-78); SODIUM 138 mmol/L (136-145); TOTAL PROTEIN 7.3 gm/dL (6.4-8.2); TROPONIN I < 0.015 ng/ml (<0.045)
== END 2019-02-03 15:59 | disposition home or self-care (01) ==
LOC: ED 13:39
PROVIDERS: Physician Assistant
DX: I10 Essential (primary) hypertension (principal); N17.9 Acute kidney failure, unspecified; R79.89 Other specified abnormal findings of blood chemistry; R94.31 Abnormal electrocardiogram [ECG] [EKG]; Z88.4 Allergy status to anesthetic agent; Z79.899 Other long term (current) drug therapy; Z79.82 Long term (current) use of aspirin; Z79.4 Long term (current) use of insulin; Z90.49 Acquired absence of other specified parts of digestive tract

== ENCOUNTER 2019-02-18 19:27 | Emergency (ER) | payer OTHER ==
[~2019-02-18] VITALS: Ht 177.8 cm; Wt 99.8 kg
[2019-02-18 21:38] LABS: BASO # 0.1 10*3/uL (0.0-0.1); BASO % 0.9 % (0.0-1.0); EOS # 0.5 10*3/uL (0.0-0.4); EOS % 4.6 % (1.0-4.0); HEMATOCRIT 43.3 % (42.0-52.0); HEMOGLOBIN 14.8 g/dl (14.0-18.0); LYMPH # 3.9 10*3/uL (1.3-4.4); LYMPH % 34.7 % (27.0-41.0); MEAN CELL VOLUME 85.2 fl (80.0-94.0); MEAN CORPUSCULAR HGB 29.1 pg (27.0-31.0); MEAN CORPUSCULAR HGB CONC 34.2 g/dl (33.0-37.0); MEAN PLATELET VOLUME 10.8 fl (9.6-12.3); MONO % 8.9 % (3.0-9.0); NEUT # 5.7 10*3/uL (2.3-7.9); NEUT % 50.5 % (47.0-73.0); PLATELET COUNT AUTOMATED 267 10*3/uL (130-400); RED BLOOD COUNT 5.08 10*6/uL (4.50-5.90); RED CELL DISTRI WIDTH 14.8 % (0-14.5); WHITE BLOOD COUNT 11.3 10*3/uL (4.8-10.8)
[2019-02-18 21:48] LABS: ACT PARTIAL THROMBO TIME 23.7 SECONDS (20.0-32.1); INTERNATIONAL NORM RATIO 0.9 (2.0-3.5)
[2019-02-18 21:53] LABS: ALBUMIN 3.3 gm/dl (3.1-4.5); ALKALINE PHOSPHATASE 92 U/L (45-117); BUN 14 mg/dl (7-24); CHLORIDE 104 mmol/L (98-107); CREATININE 1.14 mg/dL (0.70-1.30); LIPASE 192 U/L (73-393); POTASSIUM 3.7 mmol/L (3.5-5.1); SGOT/AST 21 IU/L (3-35); SGPT/ALT 35 U/L (12-78); SODIUM 137 mmol/L (136-145); TOTAL PROTEIN 7.2 gm/dL (6.4-8.2)
[2019-02-18 21:54] LABS: TROPONIN I < 0.015 ng/ml (<0.045)
[2019-02-18 23:27] VITALS: BP 162/119
[2019-02-19] MEDS ORDERED: CEPHALEXIN500 M1 PO (00:27)
== END 2019-02-19 01:00 | disposition home or self-care (01) ==
LOC: ED 19:27
PROVIDERS: Nurse Practitioner Family
DX: S31.105A Unspecified open wound of abdominal wall, periumbilic region without penetration into peritoneal cavity, initial encounter (principal); I25.10 Atherosclerotic heart disease of native coronary artery without angina pectoris; J44.9 Chronic obstructive pulmonary disease, unspecified; I10 Essential (primary) hypertension; E78.2 Mixed hyperlipidemia; I25.2 Old myocardial infarction; E11.9 Type 2 diabetes mellitus without complications; F17.200 Nicotine dependence, unspecified, uncomplicated; Z88.4 Allergy status to anesthetic agent; Z79.899 Other long term (current) drug therapy; Z79.82 Long term (current) use of aspirin; Z86.718 Personal history of other venous thrombosis and embolism; Z79.4 Long term (current) use of insulin; X58.XXXA Exposure to other specified factors, initial encounter; Y93.89 Activity, other specified; Y92.89 Other specified places as the place of occurrence of the external cause; Y99.8 Other external cause status

== ENCOUNTER 2019-03-25 08:22 | Emergency (ER) | payer OTHER ==
[~2019-03-25] VITALS: Ht 177.8 cm; Wt 99.8 kg
[2019-03-25 08:22] VITALS: BP 152/94
[2019-03-25] MEDS ORDERED: Motrin,Rufen800 MG PO (10:33)
== END 2019-03-25 10:39 | disposition home or self-care (01) ==
LOC: ED 08:22
DX: S46.912A Strain of unspecified muscle, fascia and tendon at shoulder and upper arm level, left arm, initial encounter (principal); I25.10 Atherosclerotic heart disease of native coronary artery without angina pectoris; J44.9 Chronic obstructive pulmonary disease, unspecified; I10 Essential (primary) hypertension; E78.2 Mixed hyperlipidemia; E11.9 Type 2 diabetes mellitus without complications; I25.2 Old myocardial infarction; E78.00 Pure hypercholesterolemia, unspecified; Z79.899 Other long term (current) drug therapy; Z79.82 Long term (current) use of aspirin; Z79.4 Long term (current) use of insulin; Z88.4 Allergy status to anesthetic agent; Z86.718 Personal history of other venous thrombosis and embolism; X58.XXXA Exposure to other specified factors, initial encounter; Y93.67 Activity, basketball; Y92.89 Other specified places as the place of occurrence of the external cause; Y99.8 Other external cause status

== ENCOUNTER 2019-04-12 17:09 | Emergency (ER) | payer OTHER ==
[~2019-04-12] VITALS: Ht 180.3 cm; Wt 99.3 kg
[2019-04-12 17:10] VITALS: BP 145/108
[2019-04-12 17:40] LABS: BASO # 0.1 10*3/uL (0.0-0.1); BASO % 1.2 % (0.0-1.0); EOS # 0.4 10*3/uL (0.0-0.4); EOS % 3.8 % (1.0-4.0); HEMATOCRIT 45.6 % (42.0-52.0); HEMOGLOBIN 15.7 g/dl (14.0-18.0); LYMPH # 3.4 10*3/uL (1.3-4.4); LYMPH % 35.6 % (27.0-41.0); MEAN CELL VOLUME 84.8 fl (80.0-94.0); MEAN CORPUSCULAR HGB 29.2 pg (27.0-31.0); MEAN CORPUSCULAR HGB CONC 34.4 g/dl (33.0-37.0); MEAN PLATELET VOLUME 10.9 fl (9.6-12.3); MONO # 0.8 10*3/uL (0.1-1.0); MONO % 8.4 % (3.0-9.0); NEUT # 4.8 10*3/uL (2.3-7.9); NEUT % 50.7 % (47.0-73.0); PLATELET COUNT AUTOMATED 262 10*3/uL (130-400); RED BLOOD COUNT 5.38 10*6/uL (4.50-5.90); RED CELL DISTRI WIDTH 13.2 % (0-14.5); WHITE BLOOD COUNT 9.5 10*3/uL (4.8-10.8)
[2019-04-12 17:57] LABS: ALBUMIN 3.2 gm/dl (3.1-4.5); ALKALINE PHOSPHATASE 95 U/L (45-117); BUN 9 mg/dl (7-24); CHLORIDE 107 mmol/L (98-107); POTASSIUM 4.1 mmol/L (3.5-5.1); SGOT/AST 13 IU/L (3-35); SGPT/ALT 25 U/L (12-78); SODIUM 140 mmol/L (136-145); TOTAL PROTEIN 7.4 gm/dL (6.4-8.2); TROPONIN I < 0.015 ng/ml (<0.045)
[2019-04-12] MEDS ORDERED: KEFLEX500 M1 PO (18:57)
== END 2019-04-12 19:29 | disposition home or self-care (01) ==
LOC: ED 17:09
PROVIDERS: Emergency Medicine
DX: L08.82 Omphalitis not of newborn (principal); R11.10 Vomiting, unspecified; I25.10 Atherosclerotic heart disease of native coronary artery without angina pectoris; G89.29 Other chronic pain; J44.9 Chronic obstructive pulmonary disease, unspecified; I10 Essential (primary) hypertension; E78.2 Mixed hyperlipidemia; I25.2 Old myocardial infarction; E11.9 Type 2 diabetes mellitus without complications; Z88.4 Allergy status to anesthetic agent; Z79.2 Long term (current) use of antibiotics; Z79.899 Other long term (current) drug therapy; Z79.4 Long term (current) use of insulin; Z79.82 Long term (current) use of aspirin; Z90.49 Acquired absence of other specified parts of digestive tract

== ENCOUNTER → 2019-05-01 | Outpatient (CLI) | payer OTHER ==
[~2019-05-01] MED LIST changes: +KEFLEX500 M1 PO
[2019-05-01 12:23] LABS: BILIRUBIN NEGATIVE (NEGATIVE); BLOOD TRACE-INTACT (NEGATIVE); CLARITY SL CLOUDY (CLEAR); COLOR YELLOW (YELLOW); GLUCOSE 3+ (NEGATIVE); KETONE NEGATIVE (NEGATIVE); LEUKO ESTERASE NEGATIVE (NEGATIVE); NITRITE NEGATIVE (NEGATIVE); PH 5.5 (5.0-9.0); UROBILINOGEN 0.2 E.U./dl (0.2-1.0)
[2019-05-01 12:32] LABS: EPITHELIAL CELLS 0-2
[2019-05-01 12:39] LABS: ALBUMIN 3.4 gm/dl (3.1-4.5); ALKALINE PHOSPHATASE 113 U/L (45-117); BILIRUBIN, DIRECT < 0.1 mg/dL (0.0-0.2); BUN 12 mg/dl (7-24); CHLORIDE 104 mmol/L (98-107); CHOLESTEROL 257 mg/dL (<200); CREATININE 1.35 mg/dL (0.70-1.30); HDL CHOLESTEROL 34 mg/dl (40-60); LDL CHOLESTEROL 153 mg/dL (9-159); POTASSIUM 3.9 mmol/L (3.5-5.1); SGOT/AST 8 IU/L (3-35); SGPT/ALT 25 U/L (12-78); SODIUM 136 mmol/L (136-145); TOTAL PROTEIN 7.6 gm/dL (6.4-8.2); TRIGLYCERIDES 352 mg/dl (<150); VLDL CHOLESTEROL 70 mg/dL (6-40)
[2019-05-01 13:56] LABS: VITAMIN D, 25-HYDROXY 21.5 ng/mL (30-100)
== END | disposition home or self-care (01) ==
LOC: LAB 12:03
PROVIDERS: Internal Medicine
DX: E11.65 Type 2 diabetes mellitus with hyperglycemia (principal); E78.5 Hyperlipidemia, unspecified; E11.40 Type 2 diabetes mellitus with diabetic neuropathy, unspecified; E55.9 Vitamin D deficiency, unspecified

== ENCOUNTER 2019-06-06 01:40 | Inpatient (IN) | payer OTHER ==
[~2019-06-06] VITALS: Ht 180.3 cm; Wt 101.7 kg
[2019-06-06] VITALS (10 sets, daily range): BP systolic 158–210; BP diastolic 96–140
[2019-06-06 02:00] LABS: BASO # 0.1 10*3/uL (0.0-0.1); BASO % 1.3 % (0.0-1.0); EOS # 0.8 10*3/uL (0.0-0.4); HEMATOCRIT 44.8 % (42.0-52.0); HEMOGLOBIN 15.3 g/dl (14.0-18.0); LYMPH # 4.1 10*3/uL (1.3-4.4); MEAN CELL VOLUME 84.8 fl (80.0-94.0); MEAN CORPUSCULAR HGB CONC 34.2 g/dl (33.0-37.0); MEAN PLATELET VOLUME 10.8 fl (9.6-12.3); MONO % 9.6 % (3.0-9.0); NEUT # 4.7 10*3/uL (2.3-7.9); NEUT % 43.9 % (47.0-73.0); PLATELET COUNT AUTOMATED 276 10*3/uL (130-400); RED BLOOD COUNT 5.28 10*6/uL (4.50-5.90); RED CELL DISTRI WIDTH 13.3 % (0-14.5); WHITE BLOOD COUNT 10.7 10*3/uL (4.8-10.8)
--- NOTE | 2019-06-06 02:07 | NUR ---
PT DENIES ANY OPEN WOUNDS SORES OR CUTS.
[2019-06-06 02:10] LABS: ACT PARTIAL THROMBO TIME 24.9 SECONDS (20.0-32.1); INTERNATIONAL NORM RATIO 0.9 (2.0-3.5)
[2019-06-06 02:16] LABS: ALBUMIN 3.3 gm/dl (3.1-4.5); ALKALINE PHOSPHATASE 118 U/L (45-117); BUN 10 mg/dl (7-24); CHLORIDE 106 mmol/L (98-107); CREATININE 1.13 mg/dL (0.70-1.30); POTASSIUM 3.8 mmol/L (3.5-5.1); SGOT/AST 13 IU/L (3-35); SGPT/ALT 28 U/L (12-78); SODIUM 137 mmol/L (136-145); TOTAL PROTEIN 7.3 gm/dL (6.4-8.2)
[2019-06-06 02:17] LABS: TROPONIN I 0.126 ng/ml (<0.045)
--- NOTE | 2019-06-06 04:11 | NUR ---
PT TO CT AT THIS TIME.
--- NOTE | 2019-06-06 04:20 | NUR ---
ALTHOUGH PATIENT IS NOT ON THE FLOOR YET AND STILL IN ER, DR. SHER REQUESTING THIS NURSE CALL THE [employer] SLAUGHTERER PLUMBER HELPER NOW TO SEE IF HE WOULD LIKE TO DO A STRESS TEST IN THE AM. DR. SMALLS PLUMBER HELPER, NO NEW ORDERS RECEIVED. STATED HE WOULD SEE PATIENT IN THE MORNING. DR. SHER NOTIFIED.
--- NOTE | 2019-06-06 04:30 | NUR ---
A 53, admitted to , under the services of CLIVE Ramirez DO with a diagnosis of HYPERTENSIVE EMERGENCY, ELEVATED TROPONIN, CHEST PAIN. Chief complaint is CHEST PAIN. Patient arrived via wheel chair from ER. Monitor applied. Initial assessment completed. Vital signs taken and recorded. CLIVE RAMIREZ DO notified of admission to the unit. Orders received. See assessment for past medical history, medications and allergies. Patient and/or family oriented to unit. [facility] FLO[facility] visitation policy reviewed. Clothing/patient valuable form completed. MAURICE CONNORS
--- NOTE | 2019-06-06 04:30 | NUR ---
PT RETURNED TO ROOM FROM CT.PT TO UNIT AT THIS TIME.
--- NOTE | 2019-06-06 04:57 | NUR ---
SPOKE WITH DR. SHER AT THIS TIME. SHE STATED THAT THE PATIENT HAS A BRAIN BLEED AND TO NOT GIVE ASPIRIN AND LOVENOX.
--- NOTE | 2019-06-06 05:00 | NUR ---
DR. SHER ON FLOOR. NOTIFIED PATIENT OF BRAIN BLEED. PATIENT AGREEABLE TO TRANSFER TO [facility]. PATIENT LETTING FAMILY KNOW.
--- NOTE | 2019-06-06 05:24 | NUR ---
PATIENT LAYING SUPINE, C/O DIZZINESS, STATES IF HE STANDS UP HE FEELS LIKE HE IS GOING TO PASS OUT. C/O CHEST PAIN. STATES IT HAS IMPROVED. BP 210/140, HR 89, PULSE OX 97%. PER DR. SHER DO NOT GIVE LABETALOL. DO NOT ALLOW PATINET TO GET OUT OF BED. BED IN LOWEST POSITION,CALL LIGHT WITHIN REACH, BED ALARM ON, CONTINOUS PULSE OX ON. WILL CONTINUE TO MONITOR.
--- NOTE | 2019-06-06 05:30 | NUR ---
[facility] TO TRANSFER PATIENT TO [facility].
--- NOTE | 2019-06-06 05:45 | NUR ---
REPORT GIVEN TO KATIE FROM [facility].
--- NOTE | 2019-06-06 05:50 | NUR ---
DR. SHER MADE AWARE OF SECOND CRITICAL TROPONIN
--- NOTE | 2019-06-06 05:57 | NUR ---
SECOND IV STARTED IN PATIENTS RIGHT WRIST. HEP LOCKED
--- NOTE | 2019-06-06 06:22 | NUR ---
[facility] HERE TO TRANSFER PATIENT. HEART MONITOR REMOVED, PULSE OX REMOVED.
--- NOTE | 2019-06-06 06:23 | NUR ---
Discharge instructions reviewed with patient/family. Patient receptive and verbalizes understanding. Follow-up care arranged. Written instructions given to patient/family. MAURICE CONNORS
== END 2019-06-06 06:23 | disposition short-term general hospital (02) | DRG 44 ==
LOC: ED 01:40 → EDHOLD 03:05 → 4E 03:20
PROVIDERS: Emergency Medicine; ADMIT Internal Medicine
DX: I62.9 Nontraumatic intracranial hemorrhage, unspecified (principal); I21.4 Non-ST elevation (NSTEMI) myocardial infarction; E44.0 Moderate protein-calorie malnutrition; I16.1 Hypertensive emergency; R74.8 Abnormal levels of other serum enzymes; G47.33 Obstructive sleep apnea (adult) (pediatric); G89.29 Other chronic pain; M54.9 Dorsalgia, unspecified; I10 Essential (primary) hypertension; I25.118 Atherosclerotic heart disease of native coronary artery with other forms of angina pectoris; E55.9 Vitamin D deficiency, unspecified; J30.2 Other seasonal allergic rhinitis; J44.9 Chronic obstructive pulmonary disease, unspecified; E66.9 Obesity, unspecified; F32.9 Major depressive disorder, single episode, unspecified; K59.00 Constipation, unspecified; E78.2 Mixed hyperlipidemia; E11.65 Type 2 diabetes mellitus with hyperglycemia; Z79.4 Long term (current) use of insulin; Z95.5 Presence of coronary angioplasty implant and graft; Z88.4 Allergy status to anesthetic agent; Z86.718 Personal history of other venous thrombosis and embolism; I25.2 Old myocardial infarction; Z86.711 Personal history of pulmonary embolism; Z90.49 Acquired absence of other specified parts of digestive tract; Z82.49 Family history of ischemic heart disease and other diseases of the circulatory system; Z83.3 Family history of diabetes mellitus; Z80.1 Family history of malignant neoplasm of trachea, bronchus and lung; Z79.899 Other long term (current) drug therapy; Z79.82 Long term (current) use of aspirin

== ENCOUNTER 2019-07-15 21:51 | Emergency (ER) | payer OTHER ==
[~2019-07-15] VITALS: Ht 180.3 cm; Wt 99.8 kg
[2019-07-15 23:06] LABS: BASO # 0.1 10*3/uL (0.0-0.1); EOS # 0.4 10*3/uL (0.0-0.4); EOS % 5.4 % (1.0-4.0); HEMATOCRIT 45.9 % (42.0-52.0); HEMOGLOBIN 15.4 g/dl (14.0-18.0); LYMPH # 1.4 10*3/uL (1.3-4.4); LYMPH % 18.1 % (27.0-41.0); MEAN CELL VOLUME 85.6 fl (80.0-94.0); MEAN CORPUSCULAR HGB 28.7 pg (27.0-31.0); MEAN CORPUSCULAR HGB CONC 33.6 g/dl (33.0-37.0); MEAN PLATELET VOLUME 10.7 fl (9.6-12.3); MONO # 0.8 10*3/uL (0.1-1.0); MONO % 9.5 % (3.0-9.0); NEUT # 5.2 10*3/uL (2.3-7.9); NEUT % 65.7 % (47.0-73.0); PLATELET COUNT AUTOMATED 215 10*3/uL (130-400); RED BLOOD COUNT 5.36 10*6/uL (4.50-5.90); WHITE BLOOD COUNT 7.9 10*3/uL (4.8-10.8)
[2019-07-16 00:48] LABS: ALBUMIN 3.6 gm/dl (3.1-4.5); ALKALINE PHOSPHATASE 93 U/L (45-117); BUN 10 mg/dl (7-24); CHLORIDE 106 mmol/L (98-107); POTASSIUM 3.5 mmol/L (3.5-5.1); SGOT/AST 11 IU/L (3-35); SGPT/ALT 30 U/L (12-78); SODIUM 140 mmol/L (136-145); TOTAL PROTEIN 7.5 gm/dL (6.4-8.2)
[2019-07-16 02:26] VITALS: BP 138/80
== END 2019-07-16 04:39 | disposition home or self-care (01) ==
LOC: ED 21:51
PROVIDERS: Emergency Medicine
DX: I10 Essential (primary) hypertension (principal); I25.10 Atherosclerotic heart disease of native coronary artery without angina pectoris; E78.2 Mixed hyperlipidemia; G47.33 Obstructive sleep apnea (adult) (pediatric); E11.9 Type 2 diabetes mellitus without complications; F32.9 Major depressive disorder, single episode, unspecified; I25.2 Old myocardial infarction; Z90.49 Acquired absence of other specified parts of digestive tract; Z79.899 Other long term (current) drug therapy; Z79.4 Long term (current) use of insulin; Z79.82 Long term (current) use of aspirin

== ENCOUNTER 2020-01-11 20:07 | Emergency (ER) | payer OTHER ==
[~2020-01-11] VITALS: Wt 103.4 kg
[2020-01-11 20:28] VITALS: BP 162/103
== END 2020-01-11 22:26 | disposition home or self-care (01) ==
LOC: ED 20:07
DX: S46.912A Strain of unspecified muscle, fascia and tendon at shoulder and upper arm level, left arm, initial encounter (principal); S63.699A Other sprain of unspecified finger, initial encounter; Z79.899 Other long term (current) drug therapy; Z79.4 Long term (current) use of insulin; Z79.82 Long term (current) use of aspirin; X58.XXXA Exposure to other specified factors, initial encounter; Y93.89 Activity, other specified; Y92.89 Other specified places as the place of occurrence of the external cause; Y99.8 Other external cause status

== ENCOUNTER → 2020-01-26 | Outpatient (CLI) | payer OTHER ==
[2020-01-26 10:07] LABS: BASO # 0.1 10*3/uL (0.0-0.1); BASO % 0.9 % (0.0-1.0); EOS # 0.6 10*3/uL (0.0-0.4); EOS % 7.1 % (1.0-4.0); HEMATOCRIT 46.5 % (42.0-52.0); LYMPH # 2.8 10*3/uL (1.3-4.4); LYMPH % 31.8 % (27.0-41.0); MEAN CELL VOLUME 87.4 fl (80.0-94.0); MEAN CORPUSCULAR HGB 29.5 pg (27.0-31.0); MEAN CORPUSCULAR HGB CONC 33.8 g/dl (33.0-37.0); MEAN PLATELET VOLUME 11.1 fl (9.6-12.3); MONO # 0.8 10*3/uL (0.1-1.0); NEUT # 4.5 10*3/uL (2.3-7.9); PLATELET COUNT AUTOMATED 246 10*3/uL (130-400); RED BLOOD COUNT 5.32 10*6/uL (4.50-5.90); RED CELL DISTRI WIDTH 13.7 % (0-14.5); WHITE BLOOD COUNT 8.7 10*3/uL (4.8-10.8)
[2020-01-26 10:38] LABS: ALBUMIN 3.3 gm/dl (3.1-4.5); BUN 10 mg/dl (7-24); CHLORIDE 108 mmol/L (98-107); CHOLESTEROL 182 mg/dL (<200); CREATININE 1.04 mg/dL (0.70-1.30); HDL CHOLESTEROL 30 mg/dl (40-60); LDL CHOLESTEROL 108 mg/dL (9-159); POTASSIUM 3.5 mmol/L (3.5-5.1); SGOT/AST 14 IU/L (3-35); SGPT/ALT 25 U/L (12-78); SODIUM 135 mmol/L (136-145); TOTAL PROTEIN 7.5 gm/dL (6.4-8.2); TRIGLYCERIDES 220 mg/dl (<150); VLDL CHOLESTEROL 44 mg/dL (6-40)
[2020-01-26 10:46] LABS: ALKALINE PHOSPHATASE 103 U/L (45-117)
== END | disposition home or self-care (01) ==
LOC: LAB 09:09
DX: Z51.81 Encounter for therapeutic drug level monitoring (principal); Z79.899 Other long term (current) drug therapy

== ENCOUNTER 2020-03-01 18:57 | Observation (INO) | payer OTHER ==
[2020-03-01] VITALS (8 sets, daily range): BP systolic 139–171; BP diastolic 84–103
[~2020-03-01] VITALS: Ht 180.3 cm; Wt 103.4 kg
[2020-03-01 19:51] LABS: BASO # 0.1 10*3/uL (0.0-0.1); BASO % 0.9 % (0.0-1.0); EOS # 0.9 10*3/uL (0.0-0.4); EOS % 9.9 % (1.0-4.0); LYMPH # 3.7 10*3/uL (1.3-4.4); LYMPH % 40.2 % (27.0-41.0); MEAN CELL VOLUME 85.1 fl (80.0-94.0); MEAN CORPUSCULAR HGB 28.5 pg (27.0-31.0); MEAN CORPUSCULAR HGB CONC 33.6 g/dl (33.0-37.0); MEAN PLATELET VOLUME 11.3 fl (9.6-12.3); MONO # 0.8 10*3/uL (0.1-1.0); NEUT # 3.7 10*3/uL (2.3-7.9); NEUT % 39.9 % (47.0-73.0); PLATELET COUNT AUTOMATED 240 10*3/uL (130-400); RED BLOOD COUNT 5.29 10*6/uL (4.50-5.90); RED CELL DISTRI WIDTH 13.1 % (0-14.5); WHITE BLOOD COUNT 9.2 10*3/uL (4.8-10.8)
[2020-03-01 20:19] LABS: ACT PARTIAL THROMBO TIME 26.4 SECONDS (20.0-32.1); INTERNATIONAL NORM RATIO 0.9 (2.0-3.5)
[2020-03-01 20:29] LABS: ALBUMIN 3.3 gm/dl (3.1-4.5); ALKALINE PHOSPHATASE 112 U/L (45-117); BUN 9 mg/dl (7-24); CHLORIDE 107 mmol/L (98-107); CREATININE 1.19 mg/dL (0.70-1.30); SGOT/AST 25 IU/L (3-35); SGPT/ALT 29 U/L (12-78); SODIUM 141 mmol/L (136-145); TOTAL PROTEIN 6.8 gm/dL (6.4-8.2)
[2020-03-01 20:30] LABS: TROPONIN I < 0.015 ng/ml (<0.045)
[2020-03-01 20:31] LABS: POTASSIUM 4.2 mmol/L (3.5-5.1)
[2020-03-01] MEDS ORDERED: VITAMIN D3125 MCG PO (22:29)
[2020-03-01] MEDS ORDERED: NEURONTIN300 MG PO (22:30)
[2020-03-01] MEDS ORDERED: PROAIR HFA8.5 GM INH (22:30)
[2020-03-01] MEDS ORDERED: ARTHRITIS PAIN650 M3 PO (22:31)
[2020-03-01] MEDS ORDERED: AMLODIPINE BESYL5 MG PO (22:31)
[2020-03-01] MEDS ORDERED: PAROXETINE HCL40 MG PO (22:32)
[2020-03-01] MEDS ORDERED: ATORVASTATIN CA40 M1 PO (22:34)
[2020-03-02 00:50] VITALS: BP 150/83
[2020-03-02 05:30] VITALS: BP 162/98
[2020-03-02 08:00] VITALS: BP 148/98
[2020-03-02 09:35] LABS: BASO # 0.1 10*3/uL (0.0-0.1); BASO % 1.2 % (0.0-1.0); EOS # 0.9 10*3/uL (0.0-0.4); EOS % 9.6 % (1.0-4.0); HEMATOCRIT 46.9 % (42.0-52.0); LYMPH # 2.7 10*3/uL (1.3-4.4); LYMPH % 29.7 % (27.0-41.0); MEAN CELL VOLUME 86.2 fl (80.0-94.0); MEAN CORPUSCULAR HGB 28.1 pg (27.0-31.0); MEAN CORPUSCULAR HGB CONC 32.6 g/dl (33.0-37.0); MONO # 0.8 10*3/uL (0.1-1.0); MONO % 9.2 % (3.0-9.0); NEUT # 4.5 10*3/uL (2.3-7.9); NEUT % 50.1 % (47.0-73.0); PLATELET COUNT AUTOMATED 223 10*3/uL (130-400); RED BLOOD COUNT 5.44 10*6/uL (4.50-5.90); RED CELL DISTRI WIDTH 13.2 % (0-14.5)
[2020-03-02 10:01] LABS: CHLORIDE 106 mmol/L (98-107); POTASSIUM 3.7 mmol/L (3.5-5.1); SODIUM 138 mmol/L (136-145)
[2020-03-02 10:05] LABS: BUN 9 mg/dl (7-24); CREATININE 1.09 mg/dL (0.70-1.30)
[2020-03-02 12:00] VITALS: BP 153/93
[2020-03-02 16:00] VITALS: BP 144/89
[2020-03-02 20:00] VITALS: BP 143/92
[2020-03-03] VITALS: BP 128/82; BP 150/101
== END 2020-03-03 06:00 | disposition short-term general hospital (02) ==
LOC: ED 18:57 → EDHOLD 21:37 → 5E 21:37
PROVIDERS: Emergency Medicine; Internal Medicine; ADMIT Internal Medicine; ATTEND Internal Medicine
DX: R07.89 Other chest pain (principal); R00.0 Tachycardia, unspecified; E11.65 Type 2 diabetes mellitus with hyperglycemia; E78.2 Mixed hyperlipidemia; I10 Essential (primary) hypertension; I25.10 Atherosclerotic heart disease of native coronary artery without angina pectoris; I82.409 Acute embolism and thrombosis of unspecified deep veins of unspecified lower extremity; J44.9 Chronic obstructive pulmonary disease, unspecified; I25.2 Old myocardial infarction; Z95.5 Presence of coronary angioplasty implant and graft

== ENCOUNTER → 2020-04-26 | Outpatient (CLI) | payer OTHER ==
[~2020-04-26] MED LIST changes: +AMLODIPINE BESYL5 MG PO; +ARTHRITIS PAIN650 M3 PO; +ATORVASTATIN CA40 M1 PO; +NEURONTIN300 MG PO; +PROAIR HFA8.5 GM INH; +VITAMIN D3125 MCG PO
[2020-04-26 11:23] LABS: BILIRUBIN Negative (Negative); BLOOD Negative (Negative); CLARITY Clear (Clear); COLOR Yellow (Yellow); GLUCOSE 3+ (Negative); KETONE Negative (Negative); LEUKO ESTERASE Negative (Negative); NITRITE Negative (Negative); PH 6.5 (4.5-8.0); SPECIFIC GRAVITY 1.025 (1.001-1.030)
[2020-04-26 11:30] LABS: BACTERIA TRACE; EPITHELIAL CELLS 0-2; RBC 0-2 rbc/hpf (0-2)
[2020-04-26 11:53] LABS: ALBUMIN 3.5 gm/dl (3.1-4.5); ALKALINE PHOSPHATASE 103 U/L (45-117); BILIRUBIN, DIRECT < 0.1 mg/dL (0.0-0.2); BUN 9 mg/dl (7-24); CHLORIDE 108 mmol/L (98-107); CHOLESTEROL 181 mg/dL (<200); CREATININE 1.04 mg/dL (0.70-1.30); HDL CHOLESTEROL 40 mg/dl (40-60); LDL CHOLESTEROL 96 mg/dL (9-159); POTASSIUM 3.7 mmol/L (3.5-5.1); SGOT/AST 9 IU/L (3-35); SGPT/ALT 25 U/L (12-78); SODIUM 141 mmol/L (136-145); TOTAL PROTEIN 7.5 gm/dL (6.4-8.2); TRIGLYCERIDES 223 mg/dl (<150); VLDL CHOLESTEROL 45 mg/dL (6-40)
[2020-04-26 12:03] LABS: VITAMIN D, 25-HYDROXY 36.4 ng/mL (30-100)
== END | disposition home or self-care (01) ==
LOC: LAB 10:56
PROVIDERS: ATTEND Internal Medicine
DX: E11.65 Type 2 diabetes mellitus with hyperglycemia (principal); E78.5 Hyperlipidemia, unspecified; E11.40 Type 2 diabetes mellitus with diabetic neuropathy, unspecified; E55.9 Vitamin D deficiency, unspecified

== ENCOUNTER 2020-06-08 19:17 | Emergency (ER) | payer OTHER ==
[2020-06-08 20:11] VITALS: BP 170/84
== END 2020-06-08 20:57 | disposition home or self-care (01) ==
LOC: ED 19:17
DX: R51.9 Headache, unspecified (principal); E11.9 Type 2 diabetes mellitus without complications; I25.10 Atherosclerotic heart disease of native coronary artery without angina pectoris; F32.9 Major depressive disorder, single episode, unspecified; I25.2 Old myocardial infarction; E78.00 Pure hypercholesterolemia, unspecified; Z88.8 Allergy status to other drugs, medicaments and biological substances; Z79.4 Long term (current) use of insulin; Z79.899 Other long term (current) drug therapy; Z79.82 Long term (current) use of aspirin; Z90.49 Acquired absence of other specified parts of digestive tract; Z95.5 Presence of coronary angioplasty implant and graft

== ENCOUNTER 2020-07-21 17:32 | Emergency (ER) | payer OTHER ==
[~2020-07-21] VITALS: Wt 98.9 kg
[2020-07-21 17:53] VITALS: BP 170/108
[2020-07-21] MEDS ORDERED: CYCLOBENZAPRINE10 MG PO (18:34)
[2020-07-21] MEDS ORDERED: NAPROXEN250 MG PO (18:34)
[2020-07-21] MEDS ORDERED: TYLENOL325 M1 PO (18:34)
== END 2020-07-21 18:58 | disposition home or self-care (01) ==
LOC: ED 17:32
DX: M54.5 Low back pain (principal); I25.10 Atherosclerotic heart disease of native coronary artery without angina pectoris; J44.9 Chronic obstructive pulmonary disease, unspecified; I10 Essential (primary) hypertension; I25.2 Old myocardial infarction; E11.9 Type 2 diabetes mellitus without complications; G47.33 Obstructive sleep apnea (adult) (pediatric); Z79.899 Other long term (current) drug therapy; Z88.4 Allergy status to anesthetic agent; Z79.82 Long term (current) use of aspirin; Z90.49 Acquired absence of other specified parts of digestive tract; Z98.890 Other specified postprocedural states

== ENCOUNTER 2020-09-12 18:54 | Emergency (ER) | payer OTHER ==
[~2020-09-12] VITALS: Wt 98.9 kg
[~2020-09-12 18:54] MED LIST changes: +NAPROXEN250 MG PO; +TYLENOL325 M1 PO
[2020-09-12 19:28] VITALS: BP 151/91
[2020-09-12] MEDS ORDERED: CEPHALEXIN500 M1 PO (19:48)
== END 2020-09-12 20:03 | disposition home or self-care (01) ==
LOC: ED 18:54
DX: M79.642 Pain in left hand (principal); Z48.01 Encounter for change or removal of surgical wound dressing; I10 Essential (primary) hypertension; E11.9 Type 2 diabetes mellitus without complications; Z98.890 Other specified postprocedural states; Z88.4 Allergy status to anesthetic agent; Z79.899 Other long term (current) drug therapy; Z79.4 Long term (current) use of insulin; Z79.82 Long term (current) use of aspirin; Z90.49 Acquired absence of other specified parts of digestive tract

== ENCOUNTER → 2020-10-04 | Outpatient (CLI) | payer OTHER ==
[2020-10-04 09:26] LABS: BILIRUBIN Negative (Negative); BLOOD Negative (Negative); CLARITY Clear (Clear); COLOR Yellow (Yellow); GLUCOSE 2+ (Negative); KETONE Negative (Negative); LEUKO ESTERASE Negative (Negative); NITRITE Negative (Negative); PH 5.5 (4.5-8.0)
[2020-10-04 09:40] LABS: BACTERIA TRACE; RBC 0-2 rbc/hpf (0-2); WBC 0-2 wbc/hpf (0-5)
[2020-10-04 10:05] LABS: ALBUMIN 3.3 gm/dl (3.1-4.5); BILIRUBIN, DIRECT 0.1 mg/dL (0.0-0.2); BUN 12 mg/dl (7-24); CHLORIDE 106 mmol/L (98-107); CHOLESTEROL 245 mg/dL (<200); CREATININE 1.14 mg/dL (0.70-1.30); POTASSIUM 3.2 mmol/L (3.5-5.1); SGOT/AST 11 IU/L (3-35); SGPT/ALT 23 U/L (12-78); SODIUM 141 mmol/L (136-145); TOTAL PROTEIN 7.5 gm/dL (6.4-8.2); TRIGLYCERIDES 236 mg/dl (<150)
[2020-10-04 10:06] LABS: ALKALINE PHOSPHATASE 104 U/L (45-117); LDL CHOLESTEROL 160 mg/dL (9-159)
[2020-10-04 10:57] LABS: VITAMIN D, 25-HYDROXY 27.4 ng/mL (30-100)
== END | disposition home or self-care (01) ==
LOC: LAB 08:52
PROVIDERS: ATTEND Internal Medicine
DX: E11.65 Type 2 diabetes mellitus with hyperglycemia (principal); E11.40 Type 2 diabetes mellitus with diabetic neuropathy, unspecified; E78.5 Hyperlipidemia, unspecified; E55.9 Vitamin D deficiency, unspecified

== ENCOUNTER 2020-11-13 19:19 | Emergency (ER) | payer OTHER ==
[~2020-11-13] VITALS: Ht 180.3 cm; Wt 105.2 kg
[2020-11-13 19:41] VITALS: BP 150/98
[2020-11-13] MEDS ORDERED: CYCLOBENZAPRINE10 MG PO (20:33)
== END 2020-11-13 20:38 | disposition home or self-care (01) ==
LOC: ED 19:19
DX: M54.5 Low back pain (principal); G89.29 Other chronic pain; M62.838 Other muscle spasm; M54.6 Pain in thoracic spine; I10 Essential (primary) hypertension; E78.5 Hyperlipidemia, unspecified; E11.9 Type 2 diabetes mellitus without complications; Z86.718 Personal history of other venous thrombosis and embolism; Z88.4 Allergy status to anesthetic agent; Z79.2 Long term (current) use of antibiotics; Z79.899 Other long term (current) drug therapy; Z79.4 Long term (current) use of insulin; Z79.82 Long term (current) use of aspirin; Z95.5 Presence of coronary angioplasty implant and graft; Z90.49 Acquired absence of other specified parts of digestive tract; Z98.890 Other specified postprocedural states

== ENCOUNTER 2020-11-19 16:13 | Emergency (ER) | payer OTHER ==
[~2020-11-19] VITALS: Ht 180.3 cm; Wt 106.6 kg
[2020-11-19 16:55] VITALS: BP 155/98
== END 2020-11-19 18:47 | disposition home or self-care (01) ==
LOC: ED 16:13
DX: M79.89 Other specified soft tissue disorders (principal); M79.642 Pain in left hand; E66.9 Obesity, unspecified; E11.9 Type 2 diabetes mellitus without complications; I10 Essential (primary) hypertension; E78.00 Pure hypercholesterolemia, unspecified; I25.10 Atherosclerotic heart disease of native coronary artery without angina pectoris; J44.9 Chronic obstructive pulmonary disease, unspecified; I25.2 Old myocardial infarction; E78.2 Mixed hyperlipidemia; Z79.4 Long term (current) use of insulin; Z88.4 Allergy status to anesthetic agent; Z79.2 Long term (current) use of antibiotics; Z79.899 Other long term (current) drug therapy; Z79.82 Long term (current) use of aspirin; Z86.718 Personal history of other venous thrombosis and embolism; Z86.711 Personal history of pulmonary embolism; Z86.73 Personal history of transient ischemic attack (TIA), and cerebral infarction without residual deficits; Z90.49 Acquired absence of other specified parts of digestive tract; Z95.5 Presence of coronary angioplasty implant and graft

== ENCOUNTER 2020-12-07 21:19 | Emergency (ER) | payer OTHER ==
[~2020-12-07] VITALS: Ht 180.3 cm; Wt 103.9 kg
[2020-12-07 23:12] LABS: BASO # 0.1 10*3/uL (0.0-0.1); BASO % 0.6 % (0.0-1.0); EOS # 0.4 10*3/uL (0.0-0.4); EOS % 3.7 % (1.0-4.0); HEMATOCRIT 46.6 % (42.0-52.0); LYMPH # 3.2 10*3/uL (1.3-4.4); LYMPH % 28.5 % (27.0-41.0); MEAN CELL VOLUME 83.1 fl (80.0-94.0); MEAN CORPUSCULAR HGB 28.5 pg (27.0-31.0); MEAN CORPUSCULAR HGB CONC 34.3 g/dl (33.0-37.0); MEAN PLATELET VOLUME 10.4 fl (9.6-12.3); MONO # 1.1 10*3/uL (0.1-1.0); MONO % 10.2 % (3.0-9.0); NEUT # 6.4 10*3/uL (2.3-7.9); NEUT % 56.7 % (47.0-73.0); PLATELET COUNT AUTOMATED 242 10*3/uL (130-400); RED BLOOD COUNT 5.61 10*6/uL (4.50-5.90); RED CELL DISTRI WIDTH 13.7 % (0-14.5); WHITE BLOOD COUNT 11.2 10*3/uL (4.8-10.8)
[2020-12-07 23:29] LABS: ALBUMIN 3.2 gm/dl (3.1-4.5); ALKALINE PHOSPHATASE 99 U/L (45-117); BUN 16 mg/dl (7-24); CHLORIDE 98 mmol/L (98-107); CREATININE 1.23 mg/dL (0.70-1.30); POTASSIUM 2.8 mmol/L (3.5-5.1); SGOT/AST 11 IU/L (3-35); SGPT/ALT 28 U/L (12-78); SODIUM 135 mmol/L (136-145); TOTAL PROTEIN 7.6 gm/dL (6.4-8.2)
[2020-12-07 23:36] LABS: TROPONIN I < 0.015 ng/ml (<0.045)
[2020-12-08 00:36] VITALS: BP 154/98
== END 2020-12-08 02:23 | disposition home or self-care (01) ==
LOC: ED 21:19
PROVIDERS: Internal Medicine
DX: I10 Essential (primary) hypertension (principal); E87.6 Hypokalemia; R73.9 Hyperglycemia, unspecified; R07.89 Other chest pain; Z88.4 Allergy status to anesthetic agent; Z79.2 Long term (current) use of antibiotics; Z79.899 Other long term (current) drug therapy; Z79.4 Long term (current) use of insulin; Z79.82 Long term (current) use of aspirin; Z95.5 Presence of coronary angioplasty implant and graft; Z90.49 Acquired absence of other specified parts of digestive tract

== ENCOUNTER 2020-12-26 20:08 | Emergency (ER) | payer OTHER ==
[2020-12-26 20:20] VITALS: BP 172/95
== END 2020-12-26 20:42 | disposition home or self-care (01) ==
LOC: ED 20:08
DX: L23.7 Allergic contact dermatitis due to plants, except food (principal); F17.200 Nicotine dependence, unspecified, uncomplicated; Z88.4 Allergy status to anesthetic agent; Z79.2 Long term (current) use of antibiotics; Z79.899 Other long term (current) drug therapy; Z79.4 Long term (current) use of insulin; Z79.82 Long term (current) use of aspirin; Z90.49 Acquired absence of other specified parts of digestive tract; Z98.890 Other specified postprocedural states

== ENCOUNTER 2021-03-23 12:57 | Emergency (ER) | payer OTHER ==
[~2021-03-23] VITALS: Ht 180.3 cm; Wt 106.6 kg
[2021-03-23 13:13] VITALS: BP 170/116
[2021-03-23 13:49] LABS: BASO # 0.1 10*3/uL (0.0-0.1); BASO % 0.9 % (0.0-1.0); EOS # 0.1 10*3/uL (0.0-0.4); EOS % 0.8 % (1.0-4.0); HEMATOCRIT 49.5 % (42.0-52.0); LYMPH # 1.2 10*3/uL (1.3-4.4); MEAN CELL VOLUME 86.2 fl (80.0-94.0); MEAN CORPUSCULAR HGB 28.9 pg (27.0-31.0); MEAN CORPUSCULAR HGB CONC 33.5 g/dl (33.0-37.0); MEAN PLATELET VOLUME 10.9 fl (9.6-12.3); MONO # 1.3 10*3/uL (0.1-1.0); MONO % 19.7 % (3.0-9.0); NEUT % 60.3 % (47.0-73.0); PLATELET COUNT AUTOMATED 202 10*3/uL (130-400); RED BLOOD COUNT 5.74 10*6/uL (4.50-5.90); RED CELL DISTRI WIDTH 13.2 % (0-14.5); WHITE BLOOD COUNT 6.7 10*3/uL (4.8-10.8)
[2021-03-23 14:04] LABS: ACT PARTIAL THROMBO TIME 26.6 SECONDS (20.0-32.1)
[2021-03-23 14:08] LABS: ALKALINE PHOSPHATASE 107 U/L (45-117); BUN 13 mg/dl (7-24); CHLORIDE 101 mmol/L (98-107); CREATININE 1.27 mg/dL (0.70-1.30); LIPASE 97 U/L (73-393); POTASSIUM 3.8 mmol/L (3.5-5.1); SGOT/AST 14 IU/L (3-35); SGPT/ALT 28 U/L (12-78); SODIUM 134 mmol/L (136-145); TOTAL PROTEIN 7.7 gm/dL (6.4-8.2)
== END 2021-03-23 18:20 | disposition home or self-care (01) ==
LOC: ED 12:57
PROVIDERS: Emergency Medicine
DX: U07.1 COVID-19 (principal); Z88.4 Allergy status to anesthetic agent; Z79.899 Other long term (current) drug therapy; Z79.82 Long term (current) use of aspirin

== ENCOUNTER 2021-04-04 11:06 | Emergency (ER) | payer OTHER ==
[~2021-04-04] VITALS: Ht 180.3 cm; Wt 96.6 kg
[2021-04-04 11:11] VITALS: BP 133/88
[2021-04-04 11:43] LABS: BASO % 0.2 % (0.0-1.0); EOS # 0.1 10*3/uL (0.0-0.4); EOS % 1.1 % (1.0-4.0); HEMATOCRIT 44.4 % (42.0-52.0); LYMPH # 1.1 10*3/uL (1.3-4.4); LYMPH % 12.9 % (27.0-41.0); MEAN CELL VOLUME 86.2 fl (80.0-94.0); MEAN CORPUSCULAR HGB 28.5 pg (27.0-31.0); MEAN CORPUSCULAR HGB CONC 33.1 g/dl (33.0-37.0); MEAN PLATELET VOLUME 10.4 fl (9.6-12.3); MONO # 1.2 10*3/uL (0.1-1.0); MONO % 13.9 % (3.0-9.0); NEUT # 6.2 10*3/uL (2.3-7.9); PLATELET COUNT AUTOMATED 449 10*3/uL (130-400); RED BLOOD COUNT 5.15 10*6/uL (4.50-5.90); RED CELL DISTRI WIDTH 12.7 % (0-14.5); WHITE BLOOD COUNT 8.8 10*3/uL (4.8-10.8)
[2021-04-04 11:53] LABS: ACT PARTIAL THROMBO TIME 24.8 SECONDS (20.0-32.1); INTERNATIONAL NORM RATIO 1.1 (2.0-3.5)
[2021-04-04 11:58] LABS: ALKALINE PHOSPHATASE 76 U/L (45-117); BUN 11 mg/dl (7-24); CHLORIDE 101 mmol/L (98-107); POTASSIUM 4.4 mmol/L (3.5-5.1); SGOT/AST 15 IU/L (3-35); SGPT/ALT 22 U/L (12-78); SODIUM 132 mmol/L (136-145); TOTAL PROTEIN 7.9 gm/dL (6.4-8.2)
[2021-04-04 12:11] LABS: ALBUMIN 1.3 gm/dl (3.1-4.5)
[2021-04-04] MEDS ORDERED: ZITHROMAX250 MG PO (16:47)
== END 2021-04-04 16:49 | disposition home or self-care (01) ==
LOC: ED 11:06
PROVIDERS: Physician Assistant
DX: J18.9 Pneumonia, unspecified organism (principal); Z88.4 Allergy status to anesthetic agent; Z79.899 Other long term (current) drug therapy; Z79.82 Long term (current) use of aspirin

== ENCOUNTER → 2021-05-20 | Outpatient (CLI) | payer OTHER ==
[~2021-05-20] MED LIST changes: +ZITHROMAX250 MG PO
[2021-05-20 09:57] LABS: BILIRUBIN Negative (Negative); BLOOD Negative (Negative); CLARITY Clear (Clear); COLOR Yellow (Yellow); GLUCOSE 3+ (Negative); KETONE Negative (Negative); LEUKO ESTERASE Negative (Negative); NITRITE Negative (Negative); UROBILINOGEN 0.2 E.U./dl (0.0-1.0)
[2021-05-20 10:04] LABS: BUN 9 mg/dl (7-24); CHLORIDE 107 mmol/L (98-107); CHOLESTEROL 217 mg/dL (<200); CREATININE 1.06 mg/dL (0.70-1.30); POTASSIUM 3.6 mmol/L (3.5-5.1); SGOT/AST 15 IU/L (3-35); SGPT/ALT 37 U/L (12-78); SODIUM 140 mmol/L (136-145); TOTAL PROTEIN 7.2 gm/dL (6.4-8.2); TRIGLYCERIDES 289 mg/dl (<150)
[2021-05-20 10:05] LABS: ALKALINE PHOSPHATASE 104 U/L (45-117); LDL CHOLESTEROL 122 mg/dL (9-159)
[2021-05-20 11:01] LABS: RBC 0-2 rbc/hpf (0-2)
[2021-05-20 11:12] LABS: VITAMIN D, 25-HYDROXY 24.9 ng/mL (30-100)
== END | disposition home or self-care (01) ==
LOC: LAB 08:34
PROVIDERS: ATTEND Internal Medicine
DX: E11.65 Type 2 diabetes mellitus with hyperglycemia (principal); E78.5 Hyperlipidemia, unspecified; E11.40 Type 2 diabetes mellitus with diabetic neuropathy, unspecified; E55.9 Vitamin D deficiency, unspecified

== ENCOUNTER 2021-07-27 17:42 | Emergency (ER) | payer OTHER ==
[~2021-07-27] VITALS: Ht 180.3 cm; Wt 98.4 kg
[2021-07-27 18:13] VITALS: BP 164/88
[2021-07-27] MEDS ORDERED: IBUPROFEN600 MG PO (23:01)
== END 2021-07-27 23:08 | disposition home or self-care (01) ==
LOC: ED 17:42
DX: M25.531 Pain in right wrist (principal); Z98.890 Other specified postprocedural states; Z88.4 Allergy status to anesthetic agent; Z79.2 Long term (current) use of antibiotics; Z79.899 Other long term (current) drug therapy; Z79.4 Long term (current) use of insulin; Z79.82 Long term (current) use of aspirin; Z90.49 Acquired absence of other specified parts of digestive tract; Z95.5 Presence of coronary angioplasty implant and graft

== ENCOUNTER → 2021-07-29 | Outpatient (CLI) | payer OTHER ==
[~2021-07-29] MED LIST changes: +IBUPROFEN600 MG PO
== END | disposition home or self-care (01) ==
LOC: RAD 14:30
PROVIDERS: ATTEND Anesthesiology
DX: M51.37 Other intervertebral disc degeneration, lumbosacral region (principal); M85.88 Other specified disorders of bone density and structure, other site

== ENCOUNTER 2021-08-29 14:23 | Emergency (ER) | payer OTHER ==
[2021-08-29 15:12] VITALS: BP 153/52
[2021-08-29 16:43] LABS: BASO # 0.1 10*3/uL (0.0-0.1); BASO % 0.7 % (0.0-1.0); EOS # 0.3 10*3/uL (0.0-0.4); HEMATOCRIT 45.7 % (42.0-52.0); LYMPH # 2.3 10*3/uL (1.3-4.4); LYMPH % 28.1 % (27.0-41.0); MEAN CELL VOLUME 82.3 fl (80.0-94.0); MEAN CORPUSCULAR HGB 28.5 pg (27.0-31.0); MEAN CORPUSCULAR HGB CONC 34.6 g/dl (33.0-37.0); MEAN PLATELET VOLUME 10.9 fl (9.6-12.3); MONO # 0.7 10*3/uL (0.1-1.0); MONO % 8.4 % (3.0-9.0); NEUT % 59.6 % (47.0-73.0); PLATELET COUNT AUTOMATED 246 10*3/uL (130-400); RED BLOOD COUNT 5.55 10*6/uL (4.50-5.90); RED CELL DISTRI WIDTH 12.6 % (0-14.5); WHITE BLOOD COUNT 8.3 10*3/uL (4.8-10.8)
[2021-08-29 16:50] LABS: BILIRUBIN Negative (Negative); BLOOD Negative (Negative); CLARITY Clear (Clear); COLOR Yellow (Yellow); GLUCOSE 3+ (Negative); KETONE Negative (Negative); LEUKO ESTERASE Negative (Negative); NITRITE Negative (Negative); SPECIFIC GRAVITY >= 1.030 (1.001-1.030); UROBILINOGEN 0.2 E.U./dl (0.0-1.0)
[2021-08-29 17:02] LABS: ALKALINE PHOSPHATASE 133 U/L (45-117); BUN 16 mg/dl (7-24); CHLORIDE 102 mmol/L (98-107); CREATININE 1.26 mg/dL (0.70-1.30); POTASSIUM 4.1 mmol/L (3.5-5.1); SGOT/AST 15 IU/L (3-35); SGPT/ALT 36 U/L (12-78); SODIUM 134 mmol/L (136-145); TOTAL PROTEIN 7.5 gm/dL (6.4-8.2)
[2021-08-29 17:42] LABS: BACTERIA TRACE
[2021-08-29] MEDS ORDERED: MIRALAX POWDER17 G1 PO (17:50)
== END 2021-08-29 18:02 | disposition home or self-care (01) ==
LOC: ED 14:23
PROVIDERS: Internal Medicine
DX: R10.31 Right lower quadrant pain (principal); Z90.49 Acquired absence of other specified parts of digestive tract; Z98.890 Other specified postprocedural states; Z88.7 Allergy status to serum and vaccine; Z79.899 Other long term (current) drug therapy; Z79.82 Long term (current) use of aspirin

== ENCOUNTER 2021-09-29 20:26 | Emergency (ER) | payer OTHER ==
[~2021-09-29] VITALS: Ht 180.3 cm; Wt 100.7 kg
[~2021-09-29 20:26] MED LIST changes: +MIRALAX POWDER17 G1 PO
[2021-09-29 21:01] VITALS: BP 187/105
[2021-09-29] MEDS ORDERED: PREDNISONE20 M1 PO (22:47)
[2021-09-29] MEDS ORDERED: ERYTHROMYCIN OPH1 GM OPH (22:47)
== END 2021-09-29 22:56 | disposition home or self-care (01) ==
LOC: ED 20:26
DX: H10.9 Unspecified conjunctivitis (principal); Z88.4 Allergy status to anesthetic agent; Z79.899 Other long term (current) drug therapy; Z90.49 Acquired absence of other specified parts of digestive tract; Z98.890 Other specified postprocedural states

== ENCOUNTER 2022-01-08 18:10 | Inpatient (IN) | payer OTHER ==
[~2022-01-08] VITALS: Ht 180.3 cm; Wt 94.0 kg
[~2022-01-08 18:10] MED LIST changes: +ERYTHROMYCIN OPH1 GM OPH; +PREDNISONE20 M1 PO
[2022-01-08 18:54] VITALS: BP 128/80
[2022-01-08 19:15] LABS: BASO # 0.1 10*3/uL (0.0-0.1); BASO % 0.7 % (0.0-1.0); EOS # 0.2 10*3/uL (0.0-0.4); EOS % 1.7 % (1.0-4.0); HEMATOCRIT 43.1 % (42.0-52.0); LYMPH # 2.2 10*3/uL (1.3-4.4); LYMPH % 21.3 % (27.0-41.0); MEAN CELL VOLUME 83.9 fl (80.0-94.0); MEAN CORPUSCULAR HGB 29.2 pg (27.0-31.0); MEAN CORPUSCULAR HGB CONC 34.8 g/dl (33.0-37.0); MEAN PLATELET VOLUME 11.4 fl (9.6-12.3); MONO # 1.2 10*3/uL (0.1-1.0); MONO % 11.3 % (3.0-9.0); NEUT # 6.7 10*3/uL (2.3-7.9); NEUT % 64.9 % (47.0-73.0); PLATELET COUNT AUTOMATED 220 10*3/uL (130-400); RED BLOOD COUNT 5.14 10*6/uL (4.50-5.90); RED CELL DISTRI WIDTH 12.8 % (0-14.5); WHITE BLOOD COUNT 10.3 10*3/uL (4.8-10.8)
[2022-01-08 19:30] LABS: ACT PARTIAL THROMBO TIME 25.6 SECONDS (20.0-32.1)
[2022-01-08 19:36] LABS: ALKALINE PHOSPHATASE 113 U/L (45-117); BUN 9 mg/dl (7-24); CHLORIDE 104 mmol/L (98-107); POTASSIUM 2.7 mmol/L (3.5-5.1); SGOT/AST 9 IU/L (3-35); SGPT/ALT 26 U/L (12-78); SODIUM 138 mmol/L (136-145); TOTAL PROTEIN 6.8 gm/dL (6.4-8.2)
[2022-01-08 20:00] VITALS: BP 120/89
[2022-01-08 22:25] VITALS: BP 124/79
[2022-01-09] VITALS (8 sets, daily range): BP systolic 93–171; BP diastolic 49–103
[2022-01-09 05:56] LABS: BUN 8 mg/dl (7-24); CHLORIDE 104 mmol/L (98-107); CHOLESTEROL 156 mg/dL (<200); CREATININE 1.13 mg/dL (0.70-1.30); POTASSIUM 2.8 mmol/L (3.5-5.1); SODIUM 139 mmol/L (136-145); TRIGLYCERIDES 168 mg/dl (<150)
[2022-01-09 06:06] LABS: FREE T4 1.07 ng/dl (0.76-1.46); LDL CHOLESTEROL 91 mg/dL (9-159); THYROID STIM HORMONE (HS) 0.391 uIU/ml (0.358-4.75)
[2022-01-09 06:21] LABS: BASO # 0.1 10*3/uL (0.0-0.1); BASO % 0.4 % (0.0-1.0); EOS # 0.1 10*3/uL (0.0-0.4); EOS % 0.5 % (1.0-4.0); HEMATOCRIT 44.7 % (42.0-52.0); LYMPH # 1.6 10*3/uL (1.3-4.4); LYMPH % 11.6 % (27.0-41.0); MEAN CELL VOLUME 83.6 fl (80.0-94.0); MEAN CORPUSCULAR HGB 29.2 pg (27.0-31.0); MEAN CORPUSCULAR HGB CONC 34.9 g/dl (33.0-37.0); MEAN PLATELET VOLUME 11.7 fl (9.6-12.3); MONO # 1.4 10*3/uL (0.1-1.0); MONO % 10.7 % (3.0-9.0); NEUT # 10.2 10*3/uL (2.3-7.9); NEUT % 76.3 % (47.0-73.0); PLATELET COUNT AUTOMATED 218 10*3/uL (130-400); RED BLOOD COUNT 5.35 10*6/uL (4.50-5.90); WHITE BLOOD COUNT 13.4 10*3/uL (4.8-10.8)
[2022-01-09 20:48] LABS: BUN 10 mg/dl (7-24); CHLORIDE 104 mmol/L (98-107); CREATININE 1.17 mg/dL (0.70-1.30); SODIUM 138 mmol/L (136-145)
[2022-01-10] VITALS: BP 166/92
[2022-01-10 06:05] LABS: BASO # 0.1 10*3/uL (0.0-0.1); BASO % 0.8 % (0.0-1.0); EOS # 0.2 10*3/uL (0.0-0.4); EOS % 2.4 % (1.0-4.0); HEMATOCRIT 45.5 % (42.0-52.0); LYMPH # 1.9 10*3/uL (1.3-4.4); LYMPH % 21.6 % (27.0-41.0); MEAN CELL VOLUME 84.4 fl (80.0-94.0); MEAN CORPUSCULAR HGB 29.1 pg (27.0-31.0); MEAN CORPUSCULAR HGB CONC 34.5 g/dl (33.0-37.0); MEAN PLATELET VOLUME 11.4 fl (9.6-12.3); MONO # 1.3 10*3/uL (0.1-1.0); MONO % 14.9 % (3.0-9.0); NEUT # 5.3 10*3/uL (2.3-7.9); NEUT % 60.1 % (47.0-73.0); PLATELET COUNT AUTOMATED 205 10*3/uL (130-400); RED BLOOD COUNT 5.39 10*6/uL (4.50-5.90); WHITE BLOOD COUNT 8.8 10*3/uL (4.8-10.8)
[2022-01-10 06:17] LABS: ALKALINE PHOSPHATASE 101 U/L (45-117); BUN 10 mg/dl (7-24); CHLORIDE 107 mmol/L (98-107); CREATININE 1.08 mg/dL (0.70-1.30); POTASSIUM 3.5 mmol/L (3.5-5.1); SGOT/AST 8 IU/L (3-35); SGPT/ALT 20 U/L (12-78); SODIUM 139 mmol/L (136-145)
[2022-01-10 08:00] VITALS: BP 145/85
[2022-01-10 12:00] VITALS: BP 144/83
[2022-01-10] MEDS ORDERED: HUMALOG100 UNIT/1 SC (12:12)
[2022-01-10] MEDS ORDERED: Lantus SC (12:12)
[2022-01-10] MEDS ORDERED: LANTUS SOL100 UNIT/1 SC (12:13)
[2022-01-10] MEDS ORDERED: FENOFIBRATE145 M1 PO (13:08)
[2022-01-10] MEDS ORDERED: INVOKANA300 M1 PO (13:09)
[2022-01-10] MEDS ORDERED: GLIPIZIDE10 M1 PO (13:10)
[2022-01-10] MEDS ORDERED: HYDR25T PO (13:11)
[2022-01-10] MEDS ORDERED: Imdur SA60 MG PO (13:12)
[2022-01-10] MEDS ORDERED: MELOXICAM15 MG PO (13:13)
[2022-01-10] MEDS ORDERED: OMEPRAZOLE40 MG PO (13:14)
== END 2022-01-10 16:22 | disposition home or self-care (01) | DRG 243 ==
LOC: ED 18:10 → EDHOLD 20:35 → 4E 01-09 18:35
PROVIDERS: Emergency Medicine; Internal Medicine; Student in an Organized Health Care Education/Training Program; ADMIT Family Medicine; ATTEND Family Medicine
PROC: 4A02XM4 Measurement of Cardiac Total Activity, External Approach (ICD-10-PCS; principal; 2022-01-09)
PROC: 3E073KZ Introduction of Other Diagnostic Substance into Coronary Artery, Percutaneous Approach (ICD-10-PCS; 2022-01-09)
DX: K21.9 Gastro-esophageal reflux disease without esophagitis (principal); E87.2 Acidosis; E11.65 Type 2 diabetes mellitus with hyperglycemia; J44.9 Chronic obstructive pulmonary disease, unspecified; E44.0 Moderate protein-calorie malnutrition; E87.6 Hypokalemia; I25.10 Atherosclerotic heart disease of native coronary artery without angina pectoris; E78.2 Mixed hyperlipidemia; I10 Essential (primary) hypertension; G47.33 Obstructive sleep apnea (adult) (pediatric); E66.9 Obesity, unspecified; K42.9 Umbilical hernia without obstruction or gangrene; Z95.5 Presence of coronary angioplasty implant and graft; Z90.49 Acquired absence of other specified parts of digestive tract; Z82.49 Family history of ischemic heart disease and other diseases of the circulatory system; Z80.1 Family history of malignant neoplasm of trachea, bronchus and lung; I25.2 Old myocardial infarction; Z86.718 Personal history of other venous thrombosis and embolism; Z86.711 Personal history of pulmonary embolism; Z68.31 Body mass index [BMI] 31.0-31.9, adult; Z79.4 Long term (current) use of insulin; Z68.28 Body mass index [BMI] 28.0-28.9, adult

== ENCOUNTER → 2022-02-23 | Outpatient (CLI) | payer OTHER ==
[~2022-02-23] MED LIST changes: +FENOFIBRATE145 M1 PO; +GLIPIZIDE10 M1 PO; +HUMALOG100 UNIT/1 SC; +HYDR25T PO; +INVOKANA300 M1 PO; +LANTUS SOL100 UNIT/1 SC; +Lantus SC; +MELOXICAM15 MG PO; +OMEPRAZOLE40 MG PO
== END | disposition home or self-care (01) ==
LOC: RAD 08:37
PROVIDERS: ATTEND Internal Medicine
DX: M16.0 Bilateral primary osteoarthritis of hip (principal)

== ENCOUNTER → 2022-03-08 | Outpatient (CLI) | payer OTHER ==
[~2022-03-08] MED LIST changes: +ORPHENADRINE C100 M1 PO
== END | disposition home or self-care (01) ==
LOC: US 09:14
PROVIDERS: ATTEND Internal Medicine Cardiovascular Disease
DX: I73.9 Peripheral vascular disease, unspecified (principal)

== ENCOUNTER 2022-03-11 20:46 | Emergency (ER) | payer OTHER ==
[~2022-03-11] VITALS: Ht 210.8 cm; Wt 93.0 kg
[~2022-03-11 20:46] MED LIST changes: -ORPHENADRINE C100 M1 PO
[2022-03-11 20:57] VITALS: BP 167/94
[2022-03-11 21:26] LABS: BILIRUBIN Negative (Negative); BLOOD Negative (Negative); CLARITY Clear (Clear); COLOR Yellow (Yellow); GLUCOSE 3+ (Negative); KETONE Negative (Negative); LEUKO ESTERASE Negative (Negative); NITRITE Negative (Negative); SPECIFIC GRAVITY >= 1.030 (1.001-1.030)
[2022-03-11 21:35] LABS: EPITHELIAL CELLS 0-2; WBC 0-2 wbc/hpf (0-5)
[2022-03-11] MEDS ORDERED: TRAMADOL HCL50 MG PO (23:48)
[2022-03-11] MEDS ORDERED: ORPHENADRINE C100 M1 PO (23:48)
== END 2022-03-12 00:08 | disposition home or self-care (01) ==
LOC: ED 20:46
PROVIDERS: Emergency Medicine
DX: S39.011A Strain of muscle, fascia and tendon of abdomen, initial encounter (principal); I25.10 Atherosclerotic heart disease of native coronary artery without angina pectoris; J44.9 Chronic obstructive pulmonary disease, unspecified; I10 Essential (primary) hypertension; Z88.4 Allergy status to anesthetic agent; Z79.899 Other long term (current) drug therapy; Z79.82 Long term (current) use of aspirin; K21.9 Gastro-esophageal reflux disease without esophagitis; E11.9 Type 2 diabetes mellitus without complications; E78.2 Mixed hyperlipidemia; I25.2 Old myocardial infarction; Z90.49 Acquired absence of other specified parts of digestive tract; Z98.890 Other specified postprocedural states; X50.9XXA Other and unspecified overexertion or strenuous movements or postures, initial encounter; Y93.89 Activity, other specified; Y92.89 Other specified places as the place of occurrence of the external cause; Y99.8 Other external cause status

== ENCOUNTER 2022-03-26 17:51 | Emergency (ER) | payer OTHER ==
[~2022-03-26] VITALS: Wt 93.0 kg
[~2022-03-26 17:51] MED LIST changes: +ORPHENADRINE C100 M1 PO
[2022-03-26 19:18] LABS: BASO # 0.1 10*3/uL (0.0-0.1); BASO % 0.8 % (0.0-1.0); EOS # 0.3 10*3/uL (0.0-0.4); EOS % 2.7 % (1.0-4.0); HEMATOCRIT 46.6 % (42.0-52.0); LYMPH # 2.5 10*3/uL (1.3-4.4); LYMPH % 21.9 % (27.0-41.0); MEAN CELL VOLUME 82.5 fl (80.0-94.0); MEAN CORPUSCULAR HGB CONC 35.2 g/dl (33.0-37.0); MEAN PLATELET VOLUME 11.2 fl (9.6-12.3); MONO # 1.2 10*3/uL (0.1-1.0); MONO % 10.7 % (3.0-9.0); NEUT # 7.1 10*3/uL (2.3-7.9); NEUT % 63.6 % (47.0-73.0); PLATELET COUNT AUTOMATED 250 10*3/uL (130-400); RED BLOOD COUNT 5.65 10*6/uL (4.50-5.90); RED CELL DISTRI WIDTH 13.2 % (0-14.5); WHITE BLOOD COUNT 11.2 10*3/uL (4.8-10.8)
[2022-03-26 19:34] LABS: ACT PARTIAL THROMBO TIME 25.7 SECONDS (20.0-32.1); ALKALINE PHOSPHATASE 108 U/L (45-117); BUN 11 mg/dl (7-24); CHLORIDE 106 mmol/L (98-107); CREATININE 0.97 mg/dL (0.70-1.30); POTASSIUM 2.9 mmol/L (3.5-5.1); SGPT/ALT 20 U/L (12-78); SODIUM 138 mmol/L (136-145); TOTAL PROTEIN 7.3 gm/dL (6.4-8.2)
[2022-03-26 23:31] VITALS: BP 168/95
== END 2022-03-26 23:33 | disposition home or self-care (01) ==
LOC: ED 17:51
PROVIDERS: Emergency Medicine
DX: R07.9 Chest pain, unspecified (principal); I10 Essential (primary) hypertension; E87.6 Hypokalemia

== ENCOUNTER → 2022-04-11 | Outpatient (CLI) | payer OTHER ==
[2022-04-11 10:05] LABS: ALKALINE PHOSPHATASE 113 U/L (46-116); BUN 8 mg/dl (9-23); CHLORIDE 103 mmol/L (98-107); CHOLESTEROL 207 mg/dL (<200); CREATININE 0.96 mg/dL (0.70-1.30); LDL CHOLESTEROL 124 mg/dL (9-159); POTASSIUM 3.7 mmol/L (3.4-5.1); SGPT/ALT 14 U/L (10-49); SODIUM 135 mmol/L (136-145); TRIGLYCERIDES 249 mg/dl (<150)
[2022-04-11 10:16] LABS: VITAMIN D, 25-HYDROXY 24.6 ng/mL (30-100)
[2022-04-11 10:17] LABS: BILIRUBIN Negative (Negative); BLOOD Negative (Negative); CLARITY Clear (Clear); COLOR Yellow (Yellow); GLUCOSE 2+ (Negative); KETONE Negative (Negative); LEUKO ESTERASE Negative (Negative); NITRITE Negative (Negative); UROBILINOGEN 0.2 E.U./dl (0.0-1.0)
[2022-04-11 10:18] LABS: RBC 0-2 rbc/hpf (0-2)
== END | disposition home or self-care (01) ==
LOC: LAB 09:02
PROVIDERS: ATTEND Internal Medicine
DX: E11.40 Type 2 diabetes mellitus with diabetic neuropathy, unspecified (principal); E11.65 Type 2 diabetes mellitus with hyperglycemia; E78.5 Hyperlipidemia, unspecified

== ENCOUNTER 2022-04-20 17:16 | Emergency (ER) | payer OTHER ==
[~2022-04-20] VITALS: Ht 180.3 cm; Wt 90.3 kg
[2022-04-20 19:26] LABS: BASO # 0.1 10*3/uL (0.0-0.1); EOS # 0.3 10*3/uL (0.0-0.4); EOS % 2.9 % (1.0-4.0); HEMATOCRIT 46.1 % (42.0-52.0); LYMPH # 2.5 10*3/uL (1.3-4.4); LYMPH % 23.4 % (27.0-41.0); MEAN CELL VOLUME 81.2 fl (80.0-94.0); MEAN CORPUSCULAR HGB 27.8 pg (27.0-31.0); MEAN CORPUSCULAR HGB CONC 34.3 g/dl (33.0-37.0); MEAN PLATELET VOLUME 10.6 fl (9.6-12.3); MONO # 1.3 10*3/uL (0.1-1.0); MONO % 12.3 % (3.0-9.0); NEUT # 6.3 10*3/uL (2.3-7.9); PLATELET COUNT AUTOMATED 257 10*3/uL (130-400); RED BLOOD COUNT 5.68 10*6/uL (4.50-5.90); RED CELL DISTRI WIDTH 13.2 % (0-14.5); WHITE BLOOD COUNT 10.5 10*3/uL (4.8-10.8)
[2022-04-20 19:43] LABS: CREATININE 1.75 mg/dL (0.70-1.30); POTASSIUM 2.8 mmol/L (3.4-5.1); TOTAL PROTEIN 6.7 gm/dL (6.0-8.0)
[2022-04-20] MEDS ORDERED: POTASSIUM CHLO20 ME3 PO (22:49)
[2022-04-21 06:13] VITALS: BP 114/74
== END 2022-04-21 06:44 | disposition home or self-care (01) ==
LOC: ED 17:16
PROVIDERS: Physician Assistant
DX: E87.6 Hypokalemia (principal); E11.9 Type 2 diabetes mellitus without complications; R06.02 Shortness of breath; Z90.49 Acquired absence of other specified parts of digestive tract; Z98.890 Other specified postprocedural states; Z72.0 Tobacco use; E11.65 Type 2 diabetes mellitus with hyperglycemia

== ENCOUNTER 2022-07-09 18:46 | Emergency (ER) | payer OTHER ==
[~2022-07-09] VITALS: Ht 180.3 cm; Wt 94.3 kg
[~2022-07-09 18:46] MED LIST changes: +POTASSIUM CHLO20 ME3 PO
[2022-07-09 20:01] VITALS: BP 183/106
[2022-07-09] MEDS ORDERED: NAPROSYN500 MG PO (20:11)
== END 2022-07-09 20:48 | disposition home or self-care (01) ==
LOC: ED 18:46
DX: M79.642 Pain in left hand (principal); E11.9 Type 2 diabetes mellitus without complications; F32.A Depression, unspecified; I11.0 Hypertensive heart disease with heart failure; Z88.4 Allergy status to anesthetic agent; Z90.49 Acquired absence of other specified parts of digestive tract; Z98.890 Other specified postprocedural states

== ENCOUNTER 2022-07-26 18:15 | Emergency (ER) | payer OTHER ==
[~2022-07-26] VITALS: Ht 180.3 cm; Wt 94.3 kg
[2022-07-26 18:37] VITALS: BP 161/82
[2022-07-26] MEDS ORDERED: PREDNISONE20 M1 PO (21:04)
[2022-07-26] MEDS ORDERED: ZITHROMAX250 MG PO (21:04)
== END 2022-07-26 21:12 | disposition home or self-care (01) ==
LOC: ED 18:15
DX: J40 Bronchitis, not specified as acute or chronic (principal); J44.9 Chronic obstructive pulmonary disease, unspecified; E11.9 Type 2 diabetes mellitus without complications; F32.A Depression, unspecified; I25.10 Atherosclerotic heart disease of native coronary artery without angina pectoris; I25.2 Old myocardial infarction; I10 Essential (primary) hypertension; E78.00 Pure hypercholesterolemia, unspecified; Z90.49 Acquired absence of other specified parts of digestive tract; Z98.890 Other specified postprocedural states; Z90.12 Acquired absence of left breast and nipple

== ENCOUNTER → 2022-07-26 | Outpatient (CLI) | payer OTHER ==
[2022-07-26 08:40] LABS: BILIRUBIN Negative (Negative); BLOOD Negative (Negative); CLARITY Clear (Clear); COLOR Yellow (Yellow); GLUCOSE 3+ (Negative); KETONE Negative (Negative); LEUKO ESTERASE Negative (Negative); NITRITE Negative (Negative); SPECIFIC GRAVITY 1.025 (1.001-1.030)
[2022-07-26 08:57] LABS: EPITHELIAL CELLS 0-2; RBC 0-2 rbc/hpf (0-2)
[2022-07-26 08:58] LABS: BACTERIA TRACE; WBC 0-2 wbc/hpf (0-5)
[2022-07-26 08:59] LABS: ALKALINE PHOSPHATASE 122 U/L (46-116); BUN 5 mg/dl (9-23); CHLORIDE 104 mmol/L (98-107); CHOLESTEROL 162 mg/dL (<200); LDL CHOLESTEROL 106 mg/dL (9-159); POTASSIUM 3.8 mmol/L (3.4-5.1); SGPT/ALT 13 U/L (10-49); TOTAL PROTEIN 7.1 gm/dL (6.0-8.0); TRIGLYCERIDES 108 mg/dl (<150)
[2022-07-26 09:26] LABS: VITAMIN D, 25-HYDROXY 37.6 ng/mL (30-100)
== END | disposition home or self-care (01) ==
LOC: LAB 08:13
PROVIDERS: ATTEND Internal Medicine
DX: E11.40 Type 2 diabetes mellitus with diabetic neuropathy, unspecified (principal); E11.65 Type 2 diabetes mellitus with hyperglycemia; E78.5 Hyperlipidemia, unspecified; E55.9 Vitamin D deficiency, unspecified

== ENCOUNTER 2022-09-04 21:17 | Emergency (ER) | payer OTHER ==
[2022-09-04 21:26] VITALS: BP 162/112
== END 2022-09-04 21:29 | disposition home or self-care (01) ==
LOC: ED 21:17
DX: G89.29 Other chronic pain (principal); M79.642 Pain in left hand; Z88.4 Allergy status to anesthetic agent; Z79.899 Other long term (current) drug therapy; Z90.49 Acquired absence of other specified parts of digestive tract; Z98.890 Other specified postprocedural states

== ENCOUNTER 2022-09-20 14:53 | Emergency (ER) | payer OTHER ==
[~2022-09-20] VITALS: Ht 180.3 cm; Wt 91.6 kg
[2022-09-20 15:05] VITALS: BP 173/91
[2022-09-20 15:52] LABS: BASO # 0.1 10*3/uL (0.0-0.1); BASO % 0.9 % (0.0-1.0); EOS # 0.3 10*3/uL (0.0-0.4); HEMATOCRIT 41.7 % (42.0-52.0); LYMPH # 2.8 10*3/uL (1.3-4.4); LYMPH % 31.8 % (27.0-41.0); MEAN CELL VOLUME 81.6 fl (80.0-94.0); MEAN CORPUSCULAR HGB 28.8 pg (27.0-31.0); MEAN CORPUSCULAR HGB CONC 35.3 g/dl (33.0-37.0); MEAN PLATELET VOLUME 10.9 fl (9.6-12.3); MONO # 0.8 10*3/uL (0.1-1.0); MONO % 8.7 % (3.0-9.0); NEUT # 4.9 10*3/uL (2.3-7.9); NEUT % 55.3 % (47.0-73.0); PLATELET COUNT AUTOMATED 213 10*3/uL (130-400); RED BLOOD COUNT 5.11 10*6/uL (4.50-5.90); RED CELL DISTRI WIDTH 13.2 % (0-14.5); WHITE BLOOD COUNT 8.9 10*3/uL (4.8-10.8)
[2022-09-20 16:16] LABS: ALKALINE PHOSPHATASE 102 U/L (46-116); BUN 9 mg/dl (9-23); CHLORIDE 105 mmol/L (98-107); LIPASE 33 U/L (12-53); POTASSIUM 3.3 mmol/L (3.4-5.1); SGPT/ALT 13 U/L (10-49); TOTAL PROTEIN 6.3 gm/dL (6.0-8.0)
== END 2022-09-20 17:15 | disposition left against medical advice (07) ==
LOC: ED 14:53
PROVIDERS: Emergency Medicine
DX: R07.89 Other chest pain (principal); R42 Dizziness and giddiness; E11.9 Type 2 diabetes mellitus without complications; Z79.4 Long term (current) use of insulin; F32.A Depression, unspecified; I25.10 Atherosclerotic heart disease of native coronary artery without angina pectoris; I25.2 Old myocardial infarction; I11.0 Hypertensive heart disease with heart failure; E78.00 Pure hypercholesterolemia, unspecified; I10 Essential (primary) hypertension; Z88.8 Allergy status to other drugs, medicaments and biological substances; Z90.49 Acquired absence of other specified parts of digestive tract; Z98.890 Other specified postprocedural states

== ENCOUNTER 2022-10-06 22:34 | Emergency (ER) | payer OTHER ==
[~2022-10-06] VITALS: Ht 180.3 cm; Wt 95.3 kg
[2022-10-06 23:00] VITALS: BP 152/80
[2022-10-07] MEDS ORDERED: IBUPROFEN600 MG PO (00:47)
== END 2022-10-07 01:05 | disposition home or self-care (01) ==
LOC: ED 22:34
DX: M25.561 Pain in right knee (principal); Z88.4 Allergy status to anesthetic agent; Z79.2 Long term (current) use of antibiotics; Z79.899 Other long term (current) drug therapy; Z79.4 Long term (current) use of insulin; Z79.82 Long term (current) use of aspirin; Z95.5 Presence of coronary angioplasty implant and graft; Z90.49 Acquired absence of other specified parts of digestive tract; Z98.890 Other specified postprocedural states

== ENCOUNTER → 2022-10-17 | Outpatient (CLI) | payer OTHER ==
[~2022-10-17] MED LIST changes: -AMLODIPINE BESYL5 MG PO; +APRESOLINE10 MG PO; +NORVASC10 MG PO
== END | disposition home or self-care (01) ==
LOC: CARD 01:06
PROVIDERS: ATTEND Internal Medicine Cardiovascular Disease
DX: R94.31 Abnormal electrocardiogram [ECG] [EKG] (principal)

== ENCOUNTER → 2022-12-05 | Outpatient (CLI) | payer OTHER ==
[2022-12-05 09:40] LABS: BILIRUBIN Negative (Negative); BLOOD Negative (Negative); CLARITY Clear (Clear); COLOR Yellow (Yellow); GLUCOSE 3+ (Negative); KETONE Negative (Negative); LEUKO ESTERASE Negative (Negative); NITRITE Negative (Negative); PH 6.5 (4.5-8.0); SPECIFIC GRAVITY >= 1.030 (1.001-1.030)
[2022-12-05 09:50] LABS: EPITHELIAL CELLS 0-2; RBC 0-2 rbc/hpf (0-2); WBC 0-2 wbc/hpf (0-5)
[2022-12-05 10:06] LABS: ALKALINE PHOSPHATASE 131 U/L (46-116); BUN 7 mg/dl (9-23); CHLORIDE 103 mmol/L (98-107); CHOLESTEROL 211 mg/dL (<200); LDL CHOLESTEROL 129 mg/dL (9-159); POTASSIUM 3.8 mmol/L (3.4-5.1); SGPT/ALT 16 U/L (10-49); TOTAL PROTEIN 7.1 gm/dL (6.0-8.0); TRIGLYCERIDES 219 mg/dl (<150)
[2022-12-05 10:09] LABS: VITAMIN D, 25-HYDROXY 24.5 ng/mL (30-100)
== END | disposition home or self-care (01) ==
LOC: LAB 08:54
PROVIDERS: ATTEND Internal Medicine
DX: E11.65 Type 2 diabetes mellitus with hyperglycemia (principal); E55.9 Vitamin D deficiency, unspecified; E11.40 Type 2 diabetes mellitus with diabetic neuropathy, unspecified; E78.5 Hyperlipidemia, unspecified

== ENCOUNTER 2023-01-13 19:35 | Emergency (ER) | payer OTHER ==
[~2023-01-13] VITALS: Wt 95.3 kg
[2023-01-13 20:59] VITALS: BP 147/87
== END 2023-01-13 21:29 | disposition home or self-care (01) ==
LOC: ED 19:35
DX: M79.672 Pain in left foot (principal); E11.9 Type 2 diabetes mellitus without complications; Z79.4 Long term (current) use of insulin; F32.A Depression, unspecified; I25.10 Atherosclerotic heart disease of native coronary artery without angina pectoris; I25.2 Old myocardial infarction; I10 Essential (primary) hypertension; E78.00 Pure hypercholesterolemia, unspecified; Z88.8 Allergy status to other drugs, medicaments and biological substances; Z98.890 Other specified postprocedural states; Z90.49 Acquired absence of other specified parts of digestive tract; Z95.5 Presence of coronary angioplasty implant and graft; Z90.12 Acquired absence of left breast and nipple

== ENCOUNTER 2023-01-29 09:02 | Emergency (ER) | payer OTHER ==
[~2023-01-29] VITALS: Ht 180.3 cm; Wt 95.3 kg
[2023-01-29 09:09] VITALS: BP 192/110
== END 2023-01-29 11:25 | disposition home or self-care (01) ==
LOC: ED 09:02
DX: H57.11 Ocular pain, right eye (principal); H57.89 Other specified disorders of eye and adnexa; Z88.4 Allergy status to anesthetic agent; Z79.4 Long term (current) use of insulin; Z79.82 Long term (current) use of aspirin; Z79.899 Other long term (current) drug therapy; Z90.49 Acquired absence of other specified parts of digestive tract; Z98.890 Other specified postprocedural states; Z95.5 Presence of coronary angioplasty implant and graft

== ENCOUNTER 2023-01-31 10:26 | Emergency (ER) | payer OTHER ==
[~2023-01-31] VITALS: Ht 180.3 cm; Wt 95.3 kg
[2023-01-31 10:37] VITALS: BP 187/105
[2023-01-31] MEDS ORDERED: CEPHALEXIN500 M1 PO (12:12)
== END 2023-01-31 12:31 | disposition home or self-care (01) ==
LOC: ED 10:26
DX: S60.410A Abrasion of right index finger, initial encounter (principal); E11.9 Type 2 diabetes mellitus without complications; Z79.4 Long term (current) use of insulin; F32.A Depression, unspecified; I25.10 Atherosclerotic heart disease of native coronary artery without angina pectoris; I25.2 Old myocardial infarction; I10 Essential (primary) hypertension; E78.00 Pure hypercholesterolemia, unspecified; Z88.8 Allergy status to other drugs, medicaments and biological substances; Z90.49 Acquired absence of other specified parts of digestive tract; Z98.890 Other specified postprocedural states; W26.9XXA Contact with unspecified sharp object(s), initial encounter; Y93.89 Activity, other specified; Y92.89 Other specified places as the place of occurrence of the external cause; Y99.8 Other external cause status

== ENCOUNTER 2023-03-02 17:21 | Emergency (ER) | payer OTHER ==
[~2023-03-02] VITALS: Ht 180.3 cm; Wt 97.5 kg
[2023-03-02 18:44] VITALS: BP 187/101
[2023-03-02] MEDS ORDERED: MELOXICAM15 MG PO (20:59)
[2023-03-02] MEDS ORDERED: CYCLOBENZAPRINE5 M3 PO (20:59)
== END 2023-03-02 21:09 | disposition home or self-care (01) ==
LOC: ED 17:21
DX: M54.50 Low back pain, unspecified (principal); G89.29 Other chronic pain; I25.10 Atherosclerotic heart disease of native coronary artery without angina pectoris; I10 Essential (primary) hypertension; Z88.4 Allergy status to anesthetic agent; Z79.2 Long term (current) use of antibiotics; Z79.4 Long term (current) use of insulin; Z79.899 Other long term (current) drug therapy; Z79.82 Long term (current) use of aspirin; Z90.49 Acquired absence of other specified parts of digestive tract; Z98.890 Other specified postprocedural states; Z95.5 Presence of coronary angioplasty implant and graft

== ENCOUNTER → 2023-05-04 | Outpatient (CLI) | payer OTHER ==
[~2023-05-04] MED LIST changes: +CYCLOBENZAPRINE5 M3 PO
[2023-05-04 08:34] LABS: BILIRUBIN Negative (Negative); BLOOD Negative (Negative); CLARITY Clear (Clear); COLOR Yellow (Yellow); GLUCOSE 3+ (Negative); KETONE Trace (Negative); LEUKO ESTERASE Negative (Negative); NITRITE Negative (Negative); PH 5.5 (4.5-8.0); SPECIFIC GRAVITY >= 1.030 (1.001-1.030); UROBILINOGEN 0.2 E.U./dl (0.0-1.0)
[2023-05-04 09:13] LABS: BACTERIA TRACE; WBC 0-2 wbc/hpf (0-5)
[2023-05-04 09:27] LABS: VITAMIN D, 25-HYDROXY 26.3 ng/mL (30-100)
[2023-05-04 09:29] LABS: ALKALINE PHOSPHATASE 133 U/L (46-116); BUN 16 mg/dl (9-23); CHLORIDE 98 mmol/L (98-107); CHOLESTEROL 168 mg/dL (<200); POTASSIUM 3.9 mmol/L (3.4-5.1); SGPT/ALT 21 U/L (5-49); TOTAL PROTEIN 7.6 gm/dL (6.0-8.0); TRIGLYCERIDES 580 mg/dl (<150)
== END | disposition home or self-care (01) ==
LOC: LAB 08:08
PROVIDERS: ATTEND Internal Medicine
DX: E11.65 Type 2 diabetes mellitus with hyperglycemia (principal); E55.9 Vitamin D deficiency, unspecified; E11.40 Type 2 diabetes mellitus with diabetic neuropathy, unspecified; E78.5 Hyperlipidemia, unspecified

== ENCOUNTER → 2023-05-07 | Outpatient (CLI) | payer OTHER ==
[2023-05-08 13:07] LABS: HEMOGOLBIN A1C 14.8 % (4.8-5.6)
== END | disposition home or self-care (01) ==
LOC: LAB 11:31
PROVIDERS: ATTEND Internal Medicine
DX: E11.65 Type 2 diabetes mellitus with hyperglycemia (principal); E55.9 Vitamin D deficiency, unspecified; E11.40 Type 2 diabetes mellitus with diabetic neuropathy, unspecified; E78.5 Hyperlipidemia, unspecified

== ENCOUNTER 2023-05-17 16:05 | Emergency (ER) | payer OTHER ==
[~2023-05-17] VITALS: Wt 95.3 kg
[2023-05-17 16:40] VITALS: BP 156/98
[2023-05-17 17:23] LABS: BASO # 0.1 10*3/uL (0.0-0.1); BASO % 0.8 % (0.0-1.0); EOS # 0.3 10*3/uL (0.0-0.4); EOS % 3.3 % (1.0-4.0); HEMATOCRIT 45.6 % (42.0-52.0); LYMPH # 2.2 10*3/uL (1.3-4.4); LYMPH % 25.3 % (27.0-41.0); MEAN CELL VOLUME 83.4 fl (80.0-94.0); MEAN CORPUSCULAR HGB 28.2 pg (27.0-31.0); MEAN CORPUSCULAR HGB CONC 33.8 g/dl (33.0-37.0); MEAN PLATELET VOLUME 10.6 fl (9.6-12.3); MONO # 0.8 10*3/uL (0.1-1.0); MONO % 9.7 % (3.0-9.0); NEUT # 5.3 10*3/uL (2.3-7.9); NEUT % 60.7 % (47.0-73.0); PLATELET COUNT AUTOMATED 252 10*3/uL (130-400); RED BLOOD COUNT 5.47 10*6/uL (4.50-5.90); WHITE BLOOD COUNT 8.7 10*3/uL (4.8-10.8)
[2023-05-17 17:40] LABS: ACT PARTIAL THROMBO TIME 26.1 SECONDS (20.0-32.1)
[2023-05-17 17:45] LABS: ALKALINE PHOSPHATASE 86 U/L (46-116); BUN 15 mg/dl (9-23); CHLORIDE 105 mmol/L (98-107); LIPASE 51 U/L (12-53); POTASSIUM 3.7 mmol/L (3.4-5.1); SGPT/ALT 24 U/L (5-49); TOTAL PROTEIN 7.3 gm/dL (6.0-8.0)
== END 2023-05-17 19:34 | disposition short-term general hospital (02) ==
LOC: ED 16:05
PROVIDERS: Family Medicine
DX: I21.3 ST elevation (STEMI) myocardial infarction of unspecified site (principal); E11.9 Type 2 diabetes mellitus without complications; Z79.4 Long term (current) use of insulin; I25.10 Atherosclerotic heart disease of native coronary artery without angina pectoris; I25.2 Old myocardial infarction; F32.A Depression, unspecified; I10 Essential (primary) hypertension; E78.00 Pure hypercholesterolemia, unspecified; J44.9 Chronic obstructive pulmonary disease, unspecified; Z88.8 Allergy status to other drugs, medicaments and biological substances; Z98.890 Other specified postprocedural states; Z90.49 Acquired absence of other specified parts of digestive tract; Z90.12 Acquired absence of left breast and nipple; Z95.5 Presence of coronary angioplasty implant and graft; F17.210 Nicotine dependence, cigarettes, uncomplicated; Z20.822 Contact with and (suspected) exposure to COVID-19

== ENCOUNTER → 2023-07-07 | Outpatient (CLI) | payer OTHER ==
[~2023-07-07] MED LIST changes: +DOCUSATE SOD100 MG PO; +FEOSOL325 MG PO; +LISINOPRIL2.5 MG PO; +LYRICA150 M1 PO; +MAGNESIUM400 M1 PO; +METOPROLOL SUCC50 M1 PO; +NATURE'S BLEND F1 MG PO; +OXYCODONE-ACET1 EAC3 PO; +PACERONE400 MG PO; +ROSUVASTATIN CA40 MG PO; +VITAMIN C500 M8 PO
[2023-07-07 10:27] LABS: BASO # 0.1 10*3/uL (0.0-0.1); BASO % 1.2 % (0.0-1.0); EOS # 0.7 10*3/uL (0.0-0.4); EOS % 10.2 % (1.0-4.0); HEMATOCRIT 42.6 % (42.0-52.0); LYMPH # 2.1 10*3/uL (1.3-4.4); LYMPH % 32.4 % (27.0-41.0); MEAN CELL VOLUME 86.9 fl (80.0-94.0); MEAN CORPUSCULAR HGB 26.7 pg (27.0-31.0); MEAN CORPUSCULAR HGB CONC 30.8 g/dl (33.0-37.0); MEAN PLATELET VOLUME 10.4 fl (9.6-12.3); MONO # 0.7 10*3/uL (0.1-1.0); MONO % 10.2 % (3.0-9.0); NEUT % 45.5 % (47.0-73.0); PLATELET COUNT AUTOMATED 279 10*3/uL (130-400); RED CELL DISTRI WIDTH 14.6 % (0-14.5); WHITE BLOOD COUNT 6.6 10*3/uL (4.8-10.8)
[2023-07-07 10:51] LABS: ALKALINE PHOSPHATASE 75 U/L (46-116); BUN 13 mg/dl (9-23); CHLORIDE 106 mmol/L (98-107); SGPT/ALT 17 U/L (5-49); TOTAL PROTEIN 7.1 gm/dL (6.0-8.0); URIC ACID 3.4 mg/dL (3.7-9.2)
[2023-07-07 10:52] LABS: URINE CREATININE RANDOM 40.52 mg/dL
== END | disposition home or self-care (01) ==
LOC: LAB 10:06
PROVIDERS: ATTEND Internal Medicine Nephrology
DX: I10 Essential (primary) hypertension (principal); I25.709 Atherosclerosis of coronary artery bypass graft(s), unspecified, with unspecified angina pectoris; N17.9 Acute kidney failure, unspecified; E87.70 Fluid overload, unspecified

== ENCOUNTER 2023-07-27 13:28 | Emergency (ER) | payer OTHER ==
[~2023-07-27] VITALS: Wt 105.2 kg
[2023-07-27 13:35] VITALS: BP 128/88
[2023-07-27] MEDS ORDERED: Meclizine Hydrochloride 25 MG TAB PO ONE (13:45)
[2023-07-27] MEDS ORDERED: DIAZEPAM 5 MG TAB PO ONE (13:45)
[2023-07-27 14:02] LABS: BASO # 0.1 10*3/uL (0.0-0.1); BASO % 0.9 % (0.0-1.0); EOS # 0.6 10*3/uL (0.0-0.4); EOS % 6.9 % (1.0-4.0); HEMATOCRIT 43.3 % (42.0-52.0); LYMPH % 23.3 % (27.0-41.0); MEAN CELL VOLUME 85.7 fl (80.0-94.0); MEAN CORPUSCULAR HGB 27.1 pg (27.0-31.0); MEAN CORPUSCULAR HGB CONC 31.6 g/dl (33.0-37.0); MEAN PLATELET VOLUME 10.7 fl (9.6-12.3); MONO % 11.9 % (3.0-9.0); NEUT # 4.9 10*3/uL (2.3-7.9); NEUT % 56.4 % (47.0-73.0); PLATELET COUNT AUTOMATED 255 10*3/uL (130-400); RED BLOOD COUNT 5.05 10*6/uL (4.50-5.90); RED CELL DISTRI WIDTH 14.2 % (0-14.5); WHITE BLOOD COUNT 8.7 10*3/uL (4.8-10.8)
[2023-07-27 14:17] LABS: ACT PARTIAL THROMBO TIME 25.7 SECONDS (20.0-32.1)
[2023-07-27] MEDS ORDERED: Meclizine25 MG PO (14:52)
== END 2023-07-27 15:00 | disposition home or self-care (01) ==
LOC: ED 13:28
PROVIDERS: Nurse Practitioner
DX: R42 Dizziness and giddiness (principal); E11.9 Type 2 diabetes mellitus without complications; F32.A Depression, unspecified; I25.10 Atherosclerotic heart disease of native coronary artery without angina pectoris; I25.2 Old myocardial infarction; I10 Essential (primary) hypertension; R10.2 Pelvic and perineal pain; E78.00 Pure hypercholesterolemia, unspecified; Z88.8 Allergy status to other drugs, medicaments and biological substances; Z90.49 Acquired absence of other specified parts of digestive tract; Z98.890 Other specified postprocedural states

== ENCOUNTER 2023-09-22 13:10 | Emergency (ER) | payer OTHER ==
[~2023-09-22] VITALS: Ht 180.3 cm; Wt 101.2 kg
[~2023-09-22 13:10] MED LIST changes: +Meclizine25 MG PO
[2023-09-22 13:40] LABS: BASO % 0.4 % (0.0-1.0); EOS # 1.9 10*3/uL (0.0-0.4); HEMATOCRIT 46.9 % (42.0-52.0); LYMPH # 2.4 10*3/uL (1.3-4.4); LYMPH % 21.5 % (27.0-41.0); MEAN CELL VOLUME 79.1 fl (80.0-94.0); MEAN CORPUSCULAR HGB CONC 34.1 g/dl (33.0-37.0); MONO % 8.6 % (3.0-9.0); NEUT # 5.8 10*3/uL (2.3-7.9); NEUT % 51.3 % (47.0-73.0); PLATELET COUNT AUTOMATED 227 10*3/uL (130-400); RED BLOOD COUNT 5.93 10*6/uL (4.50-5.90); RED CELL DISTRI WIDTH 16.1 % (0-14.5); WHITE BLOOD COUNT 11.3 10*3/uL (4.8-10.8)
[2023-09-22 13:43] VITALS: BP 155/109
[2023-09-22] MEDS ORDERED: BUMETANIDE1 MG PO (13:51)
[2023-09-22 13:58] LABS: ALKALINE PHOSPHATASE 112 U/L (46-116); BUN 7 mg/dl (9-23); CHLORIDE 104 mmol/L (98-107); POTASSIUM 3.9 mmol/L (3.4-5.1); SGPT/ALT 22 U/L (5-49); TOTAL PROTEIN 7.1 gm/dL (6.0-8.0)
[2023-09-22] MEDS ORDERED: INSULIN REGULAR, HUMAN 1 UNIT/0.01 ML SC ONE (14:40)
== END 2023-09-22 17:09 | disposition home or self-care (01) ==
LOC: ED 13:10
PROVIDERS: Internal Medicine
DX: R07.89 Other chest pain (principal); Z88.4 Allergy status to anesthetic agent; Z79.899 Other long term (current) drug therapy; Z79.82 Long term (current) use of aspirin; Z79.4 Long term (current) use of insulin; Z95.5 Presence of coronary angioplasty implant and graft; Z90.49 Acquired absence of other specified parts of digestive tract; Z98.890 Other specified postprocedural states

== ENCOUNTER 2023-11-04 20:04 | Emergency (ER) | payer OTHER ==
[~2023-11-04] VITALS: Ht 182.8 cm; Wt 99.8 kg
[~2023-11-04 20:04] MED LIST changes: +BUMETANIDE1 MG PO
[2023-11-04] MEDS ORDERED: Acetaminophen/Oxycodone 5 MG/325 MG TABLET PO ONE (20:20)
[2023-11-04 20:31] VITALS: BP 152/96
== END 2023-11-04 23:10 | disposition home or self-care (01) ==
LOC: ED 20:04
DX: S43.402A Unspecified sprain of left shoulder joint, initial encounter (principal); S63.91XA Sprain of unspecified part of right wrist and hand, initial encounter; E11.9 Type 2 diabetes mellitus without complications; Z79.4 Long term (current) use of insulin; I25.2 Old myocardial infarction; F32.A Depression, unspecified; I25.10 Atherosclerotic heart disease of native coronary artery without angina pectoris; I10 Essential (primary) hypertension; E78.00 Pure hypercholesterolemia, unspecified; Z88.8 Allergy status to other drugs, medicaments and biological substances; Z98.890 Other specified postprocedural states; Z90.49 Acquired absence of other specified parts of digestive tract; Z95.5 Presence of coronary angioplasty implant and graft; X58.XXXA Exposure to other specified factors, initial encounter; Y93.89 Activity, other specified; Y92.89 Other specified places as the place of occurrence of the external cause; Y99.8 Other external cause status

== ENCOUNTER 2023-12-16 13:10 | Emergency (ER) | payer OTHER ==
[~2023-12-16] VITALS: Ht 180.3 cm; Wt 104.3 kg
[~2023-12-16 13:10] MED LIST changes: +JARDIANCE10 MG PO; +METFORMIN HYDR500 MG PO; +NOVOLOG FL100 UNIT/2 SC; +PANTOPRAZOLE SO40 MG PO; +PROAIR RESPICL90 MCG INH
[2023-12-16 13:27] VITALS: BP 141/89
[2023-12-16] MEDS ORDERED: methylPREDNISolone sod succ 125 MG VIAL IV ONE (13:45)
[2023-12-16] MEDS ORDERED: Albuterol Sulfate 2.5 MG/3 ML VIAL NEB ONE (13:45)
[2023-12-16] MEDS ORDERED: AZITHROMYCIN 250 MG TAB PO ONE (13:50)
[2023-12-16] MEDS ORDERED: MAGNESIUM SULFATE 50 ML IV ONE (13:50)
[2023-12-16 14:14] LABS: BASO # 0.1 10*3/uL (0.0-0.1); BASO % 1.1 % (0.0-1.0); EOS # 0.3 10*3/uL (0.0-0.4); EOS % 4.2 % (1.0-4.0); HEMATOCRIT 44.6 % (42.0-52.0); LYMPH # 2.4 10*3/uL (1.3-4.4); LYMPH % 29.3 % (27.0-41.0); MEAN CORPUSCULAR HGB 29.4 pg (27.0-31.0); MEAN CORPUSCULAR HGB CONC 33.4 g/dl (33.0-37.0); MEAN PLATELET VOLUME 10.7 fl (9.6-12.3); MONO # 0.6 10*3/uL (0.1-1.0); MONO % 7.6 % (3.0-9.0); NEUT # 4.7 10*3/uL (2.3-7.9); NEUT % 57.6 % (47.0-73.0); PLATELET COUNT AUTOMATED 250 10*3/uL (130-400); RED BLOOD COUNT 5.07 10*6/uL (4.50-5.90); RED CELL DISTRI WIDTH 14.1 % (0-14.5); WHITE BLOOD COUNT 8.1 10*3/uL (4.8-10.8)
[2023-12-16 14:35] LABS: BUN 11 mg/dl (9-23); CHLORIDE 99 mmol/L (98-107); POTASSIUM 4.1 mmol/L (3.4-5.1)
[2023-12-16] MEDS ORDERED: INSULIN REGULAR, HUMAN 1 UNIT/0.01 ML IV ONE ×2 (14:45→16:00)
[2023-12-16] MEDS ORDERED: VENTOLIN 02.5 MG/3 M INH (17:24)
[2023-12-16] MEDS ORDERED: PREDNISONE20 M1 PO (17:24)
[2023-12-16] MEDS ORDERED: AVPAK AZITHROM250 M1 PO (17:24)
== END 2023-12-16 17:32 | disposition home or self-care (01) ==
LOC: ED 13:10
PROVIDERS: Emergency Medicine
DX: J44.1 Chronic obstructive pulmonary disease with (acute) exacerbation (principal); E11.65 Type 2 diabetes mellitus with hyperglycemia; I25.10 Atherosclerotic heart disease of native coronary artery without angina pectoris; E11.22 Type 2 diabetes mellitus with diabetic chronic kidney disease; I12.9 Hypertensive chronic kidney disease with stage 1 through stage 4 chronic kidney disease, or unspecified chronic kidney disease; N18.9 Chronic kidney disease, unspecified; F32.A Depression, unspecified; F17.290 Nicotine dependence, other tobacco product, uncomplicated; Z88.8 Allergy status to other drugs, medicaments and biological substances; Z98.890 Other specified postprocedural states; Z90.49 Acquired absence of other specified parts of digestive tract; Z90.12 Acquired absence of left breast and nipple; Z95.5 Presence of coronary angioplasty implant and graft

== ENCOUNTER 2024-01-03 13:26 | Emergency (ER) | payer OTHER ==
[~2024-01-03] VITALS: Ht 180.3 cm; Wt 109.5 kg
[~2024-01-03 13:26] MED LIST changes: +AVPAK AZITHROM250 M1 PO; +VENTOLIN 02.5 MG/3 M INH
[2024-01-03] MEDS ORDERED: Albuterol Sulf/Ipratropium 3 ML VIAL NEB ONE (13:45)
[2024-01-03] MEDS ORDERED: methylPREDNISolone sod succ 125 MG VIAL IV ONE (13:45)
[2024-01-03 14:02] LABS: BASO # 0.1 10*3/uL (0.0-0.1); BASO % 0.9 % (0.0-1.0); EOS # 0.3 10*3/uL (0.0-0.4); EOS % 3.1 % (1.0-4.0); HEMATOCRIT 42.7 % (42.0-52.0); LYMPH % 20.7 % (27.0-41.0); MEAN CELL VOLUME 85.9 fl (80.0-94.0); MEAN CORPUSCULAR HGB 29.4 pg (27.0-31.0); MEAN CORPUSCULAR HGB CONC 34.2 g/dl (33.0-37.0); MEAN PLATELET VOLUME 10.9 fl (9.6-12.3); MONO % 10.2 % (3.0-9.0); NEUT # 6.3 10*3/uL (2.3-7.9); NEUT % 64.8 % (47.0-73.0); PLATELET COUNT AUTOMATED 209 10*3/uL (130-400); RED BLOOD COUNT 4.97 10*6/uL (4.50-5.90); RED CELL DISTRI WIDTH 13.5 % (0-14.5); WHITE BLOOD COUNT 9.7 10*3/uL (4.8-10.8)
[2024-01-03 14:31] LABS: ALKALINE PHOSPHATASE 115 U/L (46-116); BUN 6 mg/dl (9-23); CHLORIDE 102 mmol/L (98-107); POTASSIUM 3.9 mmol/L (3.4-5.1); SGPT/ALT 18 U/L (5-49); TOTAL PROTEIN 6.2 gm/dL (6.0-8.0)
[2024-01-03] MEDS ORDERED: INSULIN REGULAR, HUMAN 1 UNIT/0.01 ML IV ONE (14:55)
[2024-01-03] MEDS ORDERED: SODIUM CHLORIDE 0.9% 100 ML BAG IV ONE (16:35)
[2024-01-03] MEDS ORDERED: IOHEXOL 350 MG/ML 100 ML VIAL IV ONE (16:35)
[2024-01-03] MEDS ORDERED: HEPARIN SODIUM 250 ML IV SCH (19:50)
[2024-01-04] MEDS ORDERED: INSULIN REGULAR, HUMAN 1 UNIT/0.01 ML IV ONE ×3 (00:20→05:55)
[2024-01-04] MEDS ORDERED: SODIUM CHLORIDE 0.9% 500 ML IV ONE (03:25)
[2024-01-04] MEDS ORDERED: SODIUM CHLORIDE 0.9% 1,000 ML IV ONE (05:55)
[2024-01-04 08:19] LABS: BASO % 0.2 % (0.0-1.0); EOS % 0.1 % (1.0-4.0); HEMATOCRIT 41.5 % (42.0-52.0); LYMPH # 1.8 10*3/uL (1.3-4.4); LYMPH % 14.9 % (27.0-41.0); MEAN CELL VOLUME 87.4 fl (80.0-94.0); MEAN CORPUSCULAR HGB 29.3 pg (27.0-31.0); MEAN CORPUSCULAR HGB CONC 33.5 g/dl (33.0-37.0); MEAN PLATELET VOLUME 10.9 fl (9.6-12.3); MONO # 0.8 10*3/uL (0.1-1.0); MONO % 6.5 % (3.0-9.0); NEUT # 9.6 10*3/uL (2.3-7.9); NEUT % 77.7 % (47.0-73.0); PLATELET COUNT AUTOMATED 209 10*3/uL (130-400); RED BLOOD COUNT 4.75 10*6/uL (4.50-5.90); RED CELL DISTRI WIDTH 13.6 % (0-14.5); WHITE BLOOD COUNT 12.3 10*3/uL (4.8-10.8)
[2024-01-04 08:22] LABS: BUN 12 mg/dl (9-23); CHLORIDE 107 mmol/L (98-107); POTASSIUM 4.1 mmol/L (3.4-5.1)
[2024-01-04] MEDS ORDERED: ISOSORBIDE MONONITRATE 30 MG TAB PO SCH (10:00)
[2024-01-04] MEDS ORDERED: Insulin Glargine, Recombinan 1 UNIT/0.01 ML SC SCH (10:00)
[2024-01-04] MEDS ORDERED: LISINOPRIL 2.5 MG TAB PO SCH (10:00)
[2024-01-04] MEDS ORDERED: ASPIRIN ENTERIC COATED 81 MG TAB PO SCH (10:00)
[2024-01-04 14:02] VITALS: BP 127/74
== END 2024-01-04 14:20 | disposition short-term general hospital (02) ==
LOC: ED 13:26
PROVIDERS: Emergency Medicine; Internal Medicine
DX: I26.99 Other pulmonary embolism without acute cor pulmonale (principal); E11.9 Type 2 diabetes mellitus without complications; J44.9 Chronic obstructive pulmonary disease, unspecified; I25.2 Old myocardial infarction; I10 Essential (primary) hypertension; E78.00 Pure hypercholesterolemia, unspecified; F32.A Depression, unspecified; F17.290 Nicotine dependence, other tobacco product, uncomplicated; Z79.4 Long term (current) use of insulin; Z88.8 Allergy status to other drugs, medicaments and biological substances; Z90.49 Acquired absence of other specified parts of digestive tract; Z98.890 Other specified postprocedural states; Z95.5 Presence of coronary angioplasty implant and graft

== ENCOUNTER 2024-03-28 16:02 | Emergency (ER) | payer OTHER ==
[~2024-03-28] VITALS: Ht 180.3 cm; Wt 103.4 kg
[~2024-03-28 16:02] MED LIST changes: +ELIQUIS5 M1 PO
[2024-03-28 16:19] VITALS: BP 159/92
[2024-03-28] MEDS ORDERED: MG-AL HYDROXIDE/SIMETICONE 30 ML UDC PO ONE (16:50)
[2024-03-28] MEDS ORDERED: Ondansetron Hydrochloride 4 MG/2 ML VIAL IV ONE (16:50)
[2024-03-28] MEDS ORDERED: Lidocaine Hydrochloride 15 ML UDC PO ONE (16:50)
[2024-03-28 17:07] LABS: BASO # 0.1 10*3/uL (0.0-0.1); BASO % 1.2 % (0.0-1.0); EOS # 0.3 10*3/uL (0.0-0.4); EOS % 3.8 % (1.0-4.0); HEMATOCRIT 49.1 % (42.0-52.0); MEAN CELL VOLUME 84.9 fl (80.0-94.0); MEAN CORPUSCULAR HGB 28.4 pg (27.0-31.0); MEAN CORPUSCULAR HGB CONC 33.4 g/dl (33.0-37.0); MEAN PLATELET VOLUME 10.7 fl (9.6-12.3); MONO # 0.9 10*3/uL (0.1-1.0); MONO % 10.4 % (3.0-9.0); NEUT # 4.6 10*3/uL (2.3-7.9); NEUT % 54.8 % (47.0-73.0); PLATELET COUNT AUTOMATED 231 10*3/uL (130-400); RED BLOOD COUNT 5.78 10*6/uL (4.50-5.90); RED CELL DISTRI WIDTH 14.2 % (0-14.5); WHITE BLOOD COUNT 8.4 10*3/uL (4.8-10.8)
[2024-03-28 17:28] LABS: ALKALINE PHOSPHATASE 114 U/L (46-116); BUN 7 mg/dl (9-23); CHLORIDE 105 mmol/L (98-107); LIPASE 26 U/L (12-53); POTASSIUM 3.5 mmol/L (3.4-5.1); SGPT/ALT 14 U/L (5-49)
[2024-03-28] MEDS ORDERED: Carafate1 GM PO (19:11)
== END 2024-03-28 19:30 | disposition home or self-care (01) ==
LOC: ED 16:02
PROVIDERS: Emergency Medicine
DX: R10.13 Epigastric pain (principal); R11.2 Nausea with vomiting, unspecified; E11.9 Type 2 diabetes mellitus without complications; J44.9 Chronic obstructive pulmonary disease, unspecified; I25.10 Atherosclerotic heart disease of native coronary artery without angina pectoris; I25.2 Old myocardial infarction; I10 Essential (primary) hypertension; E78.00 Pure hypercholesterolemia, unspecified; F32.A Depression, unspecified; Z79.4 Long term (current) use of insulin; Z88.8 Allergy status to other drugs, medicaments and biological substances; Z98.890 Other specified postprocedural states; Z90.49 Acquired absence of other specified parts of digestive tract; Z95.5 Presence of coronary angioplasty implant and graft

== ENCOUNTER 2024-03-30 12:33 | Emergency (ER) | payer OTHER ==
[~2024-03-30] VITALS: Ht 180.3 cm; Wt 106.6 kg
[~2024-03-30 12:33] MED LIST changes: +Carafate1 GM PO
[2024-03-30 12:53] VITALS: BP 157/95
[2024-03-30] MEDS ORDERED: Bacitracin Zinc 14 GM TUBE T ONE (13:10)
[2024-03-30] MEDS ORDERED: Lidocaine Hydrochloride 2% 10 ML AMP SC ONE (13:10)
[2024-03-30] MEDS ORDERED: CEPHALEXIN500 M1 PO (13:47)
[2024-03-30] MEDS ORDERED: CEPHALEXIN 500 MG CAP PO ONE (13:50)
== END 2024-03-30 14:10 | disposition home or self-care (01) ==
LOC: ED 12:33
DX: S61.211A Laceration without foreign body of left index finger without damage to nail, initial encounter (principal); I25.10 Atherosclerotic heart disease of native coronary artery without angina pectoris; E11.65 Type 2 diabetes mellitus with hyperglycemia; E87.1 Hypo-osmolality and hyponatremia; J44.9 Chronic obstructive pulmonary disease, unspecified; Z86.718 Personal history of other venous thrombosis and embolism; K21.9 Gastro-esophageal reflux disease without esophagitis; E78.5 Hyperlipidemia, unspecified; I25.2 Old myocardial infarction; I10 Essential (primary) hypertension; F32.A Depression, unspecified; Z88.8 Allergy status to other drugs, medicaments and biological substances; Z90.49 Acquired absence of other specified parts of digestive tract; Z95.1 Presence of aortocoronary bypass graft; Z95.5 Presence of coronary angioplasty implant and graft; Z98.890 Other specified postprocedural states; W26.8XXA Contact with other sharp object(s), not elsewhere classified, initial encounter; Y93.89 Activity, other specified; Y92.89 Other specified places as the place of occurrence of the external cause; Y99.8 Other external cause status

== ENCOUNTER 2024-04-07 12:11 | Emergency (ER) | payer OTHER ==
[~2024-04-07] VITALS: Ht 180.3 cm; Wt 102.5 kg
[2024-04-07 12:33] VITALS: BP 173/112
== END 2024-04-07 12:52 | disposition home or self-care (01) ==
LOC: ED 12:11
DX: S61.211D Laceration without foreign body of left index finger without damage to nail, subsequent encounter (principal); E11.9 Type 2 diabetes mellitus without complications; J44.9 Chronic obstructive pulmonary disease, unspecified; I25.10 Atherosclerotic heart disease of native coronary artery without angina pectoris; I25.2 Old myocardial infarction; I10 Essential (primary) hypertension; E78.00 Pure hypercholesterolemia, unspecified; F32.A Depression, unspecified; Z79.4 Long term (current) use of insulin; Z95.1 Presence of aortocoronary bypass graft; Z88.8 Allergy status to other drugs, medicaments and biological substances; Z90.49 Acquired absence of other specified parts of digestive tract; Z98.890 Other specified postprocedural states; X58.XXXD Exposure to other specified factors, subsequent encounter

== ENCOUNTER → 2024-04-10 | Outpatient (CLI) | payer OTHER | END | disposition home or self-care (01) | LOC: WOUNDCARE 00:42 | PROVIDERS: ATTEND Nurse Practitioner Family | DX: S61.211A Laceration without foreign body of left index finger without damage to nail, initial encounter (principal); E11.9 Type 2 diabetes mellitus without complications; I10 Essential (primary) hypertension; I25.10 Atherosclerotic heart disease of native coronary artery without angina pectoris; E78.5 Hyperlipidemia, unspecified; I25.2 Old myocardial infarction; G47.33 Obstructive sleep apnea (adult) (pediatric); J44.9 Chronic obstructive pulmonary disease, unspecified; K21.9 Gastro-esophageal reflux disease without esophagitis; Z86.718 Personal history of other venous thrombosis and embolism; Z86.711 Personal history of pulmonary embolism; Z86.73 Personal history of transient ischemic attack (TIA), and cerebral infarction without residual deficits; Z95.1 Presence of aortocoronary bypass graft; Z90.49 Acquired absence of other specified parts of digestive tract; Z79.4 Long term (current) use of insulin; Z79.82 Long term (current) use of aspirin; Z79.899 Other long term (current) drug therapy; X58.XXXA Exposure to other specified factors, initial encounter; Y93.89 Activity, other specified; Y92.89 Other specified places as the place of occurrence of the external cause; Y99.8 Other external cause status ==

== ENCOUNTER → 2024-04-11 | Outpatient (CLI) | payer OTHER ==
[~2024-04-11] MED LIST changes: +IOHEXOL 300 MG/ML 100 ML VIAL IV ONE
== END | disposition home or self-care (01) ==
LOC: CT 13:35
PROVIDERS: ATTEND Internal Medicine Critical Care Medicine
DX: Z01.818 Encounter for other preprocedural examination (principal); R91.8 Other nonspecific abnormal finding of lung field; R07.9 Chest pain, unspecified; I25.10 Atherosclerotic heart disease of native coronary artery without angina pectoris; I71.21 Aneurysm of the ascending aorta, without rupture; K76.0 Fatty (change of) liver, not elsewhere classified; K82.8 Other specified diseases of gallbladder

== ENCOUNTER 2024-04-26 14:35 | Emergency (ER) | payer OTHER ==
[~2024-04-26] VITALS: Ht 180.3 cm; Wt 103.0 kg
[~2024-04-26 14:35] MED LIST changes: -IOHEXOL 300 MG/ML 100 ML VIAL IV ONE
[2024-04-26] MEDS ORDERED: SODIUM CHLORIDE 0.9% 1,000 ML IV ONE (14:55)
[2024-04-26] MEDS ORDERED: MORPHINE Sulfate 2 MG/ML SYR IV ONE (14:55)
[2024-04-26] MEDS ORDERED: Metoclopramide Hydrochloride 10 MG/2 ML VIAL IV ONE (14:55)
[2024-04-26] MEDS ORDERED: diphenhydrAMINE hydrochloride 50 MG/ML VIAL IV ONE (14:55)
[2024-04-26 14:56] VITALS: BP 145/95
[2024-04-26 15:23] LABS: BASO # 0.1 10*3/uL (0.0-0.1); BASO % 0.6 % (0.0-1.0); EOS # 0.3 10*3/uL (0.0-0.4); EOS % 3.1 % (1.0-4.0); HEMATOCRIT 47.8 % (42.0-52.0); MEAN CELL VOLUME 86.1 fl (80.0-94.0); MEAN CORPUSCULAR HGB 28.5 pg (27.0-31.0); MEAN CORPUSCULAR HGB CONC 33.1 g/dl (33.0-37.0); MEAN PLATELET VOLUME 10.8 fl (9.6-12.3); MONO # 1.1 10*3/uL (0.1-1.0); MONO % 10.8 % (3.0-9.0); NEUT # 6.4 10*3/uL (2.3-7.9); NEUT % 62.6 % (47.0-73.0); PLATELET COUNT AUTOMATED 238 10*3/uL (130-400); RED BLOOD COUNT 5.55 10*6/uL (4.50-5.90); RED CELL DISTRI WIDTH 13.3 % (0-14.5); WHITE BLOOD COUNT 10.2 10*3/uL (4.8-10.8)
[2024-04-26 15:46] LABS: ALKALINE PHOSPHATASE 92 U/L (46-116); BUN 9 mg/dl (9-23); CHLORIDE 107 mmol/L (98-107); LIPASE 25 U/L (12-53); POTASSIUM 3.6 mmol/L (3.4-5.1); SGPT/ALT 14 U/L (5-49)
[2024-04-26] MEDS ORDERED: Ondansetron4 MG PO (17:18)
[2024-04-26] MEDS ORDERED: PEPCID20 MG PO (17:18)
== END 2024-04-26 17:40 | disposition home or self-care (01) ==
LOC: ED 14:35
PROVIDERS: Emergency Medicine
DX: R10.84 Generalized abdominal pain (principal); R11.2 Nausea with vomiting, unspecified; J44.9 Chronic obstructive pulmonary disease, unspecified; Z86.718 Personal history of other venous thrombosis and embolism; I25.10 Atherosclerotic heart disease of native coronary artery without angina pectoris; E78.5 Hyperlipidemia, unspecified; E11.22 Type 2 diabetes mellitus with diabetic chronic kidney disease; I12.9 Hypertensive chronic kidney disease with stage 1 through stage 4 chronic kidney disease, or unspecified chronic kidney disease; N18.9 Chronic kidney disease, unspecified; Z79.4 Long term (current) use of insulin; I25.2 Old myocardial infarction; E78.00 Pure hypercholesterolemia, unspecified; Z95.1 Presence of aortocoronary bypass graft; F32.A Depression, unspecified; Z88.8 Allergy status to other drugs, medicaments and biological substances; Z98.890 Other specified postprocedural states; Z90.49 Acquired absence of other specified parts of digestive tract

== ENCOUNTER 2024-05-14 14:57 | Emergency (ER) | payer MEDICAID ==
[~2024-05-14] VITALS: Ht 180.3 cm; Wt 104.3 kg
[~2024-05-14 14:57] MED LIST changes: +Ondansetron4 MG PO; +PEPCID20 MG PO
[2024-05-14 15:48] VITALS: BP 175/106
[2024-05-14] MEDS ORDERED: TRAMADOL HCL50 MG PO (16:05)
[2024-05-15] MEDS ORDERED: Ondansetron4 MG PO (14:45)
[2024-05-15] MEDS ORDERED: METRONIDAZOLE500 M1 PO (14:45)
[2024-05-15] MEDS ORDERED: CIPRO500 MG PO (14:45)
== END 2024-05-14 16:07 | disposition home or self-care (01) ==
LOC: ED 14:57
DX: E11.40 Type 2 diabetes mellitus with diabetic neuropathy, unspecified (principal); J44.9 Chronic obstructive pulmonary disease, unspecified; I25.10 Atherosclerotic heart disease of native coronary artery without angina pectoris; I25.2 Old myocardial infarction; I10 Essential (primary) hypertension; F32.A Depression, unspecified; Z79.4 Long term (current) use of insulin; Z88.8 Allergy status to other drugs, medicaments and biological substances; Z95.1 Presence of aortocoronary bypass graft; Z90.49 Acquired absence of other specified parts of digestive tract; Z98.890 Other specified postprocedural states

== ENCOUNTER 2024-05-15 12:25 | Emergency (ER) | payer MEDICAID ==
[2024-05-15] MEDS ORDERED: SODIUM CHLORIDE 0.9% 1,000 ML IV ONE (13:05)
[2024-05-15] MEDS ORDERED: MORPHINE Sulfate 2 MG/ML SYR IV ONE (13:05)
[2024-05-15] MEDS ORDERED: Ondansetron Hydrochloride 4 MG/2 ML VIAL IV ONE (13:05)
[2024-05-15 13:20] LABS: BASO # 0.1 10*3/uL (0.0-0.1); BASO % 0.8 % (0.0-1.0); EOS # 0.1 10*3/uL (0.0-0.4); HEMATOCRIT 49.5 % (42.0-52.0); MEAN CELL VOLUME 85.6 fl (80.0-94.0); MEAN CORPUSCULAR HGB 28.4 pg (27.0-31.0); MEAN CORPUSCULAR HGB CONC 33.1 g/dl (33.0-37.0); MEAN PLATELET VOLUME 10.6 fl (9.6-12.3); MONO # 0.9 10*3/uL (0.1-1.0); MONO % 13.8 % (3.0-9.0); NEUT # 4.1 10*3/uL (2.3-7.9); NEUT % 63.2 % (47.0-73.0); PLATELET COUNT AUTOMATED 245 10*3/uL (130-400); RED BLOOD COUNT 5.78 10*6/uL (4.50-5.90); RED CELL DISTRI WIDTH 13.1 % (0-14.5); WHITE BLOOD COUNT 6.5 10*3/uL (4.8-10.8)
[2024-05-15 13:42] LABS: ALKALINE PHOSPHATASE 99 U/L (46-116); BUN 8 mg/dl (9-23); CHLORIDE 104 mmol/L (98-107); LIPASE 25 U/L (12-53); POTASSIUM 3.7 mmol/L (3.4-5.1); SGPT/ALT 25 U/L (5-49); TOTAL PROTEIN 6.9 gm/dL (6.0-8.0)
[2024-05-15] MEDS ORDERED: METRONIDAZOLE500 M1 PO (14:45)
[2024-05-15] MEDS ORDERED: CIPRO500 MG PO (14:45)
[2024-05-15] MEDS ORDERED: Ondansetron4 MG PO (14:45)
[2024-05-15 14:47] VITALS: BP 156/75
== END 2024-05-15 14:53 | disposition home or self-care (01) ==
LOC: ED 12:25
PROVIDERS: Physician Assistant Medical
DX: K52.9 Noninfective gastroenteritis and colitis, unspecified (principal); R11.2 Nausea with vomiting, unspecified; I12.0 Hypertensive chronic kidney disease with stage 5 chronic kidney disease or end stage renal disease; E11.22 Type 2 diabetes mellitus with diabetic chronic kidney disease; N18.6 End stage renal disease; K21.9 Gastro-esophageal reflux disease without esophagitis; I25.2 Old myocardial infarction; J44.9 Chronic obstructive pulmonary disease, unspecified; Z88.4 Allergy status to anesthetic agent; Z79.899 Other long term (current) drug therapy; Z79.4 Long term (current) use of insulin; Z79.82 Long term (current) use of aspirin; Z95.5 Presence of coronary angioplasty implant and graft; Z90.49 Acquired absence of other specified parts of digestive tract; Z98.890 Other specified postprocedural states; Z86.718 Personal history of other venous thrombosis and embolism

== ENCOUNTER → 2024-06-23 | Outpatient (CLI) | payer MEDICAID ==
[~2024-06-23] MED LIST changes: +CIPRO500 MG PO; +METRONIDAZOLE500 M1 PO
== END | disposition home or self-care (01) ==
LOC: RAD 12:40
PROVIDERS: ATTEND Specialist
DX: K58.9 Irritable bowel syndrome, unspecified (principal); K59.00 Constipation, unspecified; Z90.49 Acquired absence of other specified parts of digestive tract

== ENCOUNTER 2024-08-22 18:54 | Emergency (ER) | payer MEDICAID ==
[~2024-08-22] VITALS: Ht 180.3 cm; Wt 106.6 kg
[2024-08-22 19:41] VITALS: BP 133/78
[2024-08-22] MEDS ORDERED: SODIUM CHLORIDE 0.9% 1,000 ML IV ONE (19:50)
[2024-08-22 20:05] LABS: BASO # 0.1 10*3/uL (0.0-0.1); BASO % 1.1 % (0.0-1.0); EOS # 0.7 10*3/uL (0.0-0.4); HEMATOCRIT 45.3 % (42.0-52.0); MEAN CORPUSCULAR HGB 27.6 pg (27.0-31.0); MEAN CORPUSCULAR HGB CONC 32.5 g/dl (33.0-37.0); MEAN PLATELET VOLUME 10.9 fl (9.6-12.3); MONO % 10.3 % (3.0-9.0); NEUT # 4.5 10*3/uL (2.3-7.9); NEUT % 47.4 % (47.0-73.0); PLATELET COUNT AUTOMATED 255 10*3/uL (130-400); RED BLOOD COUNT 5.33 10*6/uL (4.50-5.90); RED CELL DISTRI WIDTH 15.2 % (0-14.5); WHITE BLOOD COUNT 9.4 10*3/uL (4.8-10.8)
[2024-08-22 20:15] LABS: ACT PARTIAL THROMBO TIME 26.8 SECONDS (20.0-32.1)
[2024-08-22 20:24] LABS: ALKALINE PHOSPHATASE 85 U/L (46-116); BUN 13 mg/dl (9-23); CHLORIDE 104 mmol/L (98-107); POTASSIUM 3.8 mmol/L (3.4-5.1); SGPT/ALT 21 U/L (5-49)
[2024-08-22] MEDS ORDERED: traMADol Hydrochloride 50 MG TAB PO ONE (23:15)
== END 2024-08-22 23:36 | disposition home or self-care (01) ==
LOC: ED 18:54
PROVIDERS: Internal Medicine
DX: S80.01XA Contusion of right knee, initial encounter (principal); E11.9 Type 2 diabetes mellitus without complications; R55 Syncope and collapse; E86.0 Dehydration; M25.531 Pain in right wrist; J44.9 Chronic obstructive pulmonary disease, unspecified; I25.10 Atherosclerotic heart disease of native coronary artery without angina pectoris; I25.2 Old myocardial infarction; I10 Essential (primary) hypertension; E78.00 Pure hypercholesterolemia, unspecified; F32.A Depression, unspecified; Z88.8 Allergy status to other drugs, medicaments and biological substances; Z90.49 Acquired absence of other specified parts of digestive tract; Z98.890 Other specified postprocedural states; Z95.1 Presence of aortocoronary bypass graft; Z79.4 Long term (current) use of insulin; W19.XXXA Unspecified fall, initial encounter; Y93.89 Activity, other specified; Y92.89 Other specified places as the place of occurrence of the external cause; Y99.8 Other external cause status

== ENCOUNTER 2024-09-14 17:26 | Emergency (ER) | payer MEDICAID ==
[~2024-09-14] VITALS: Ht 180.3 cm; Wt 113.4 kg
[2024-09-14] MEDS ORDERED: Ondansetron Hydrochloride 4 MG/2 ML VIAL IV ONE ×2 (17:55→23:30)
[2024-09-14] MEDS ORDERED: SODIUM CHLORIDE 0.9% 1,000 ML IV ONE ×3 (17:55→22:00)
[2024-09-14] MEDS ORDERED: Labetalol Hydrochloride 20 MG/4 ML SYR IV ONE (18:15)
[2024-09-14 18:28] LABS: BASO # 0.1 10*3/uL (0.0-0.1); BASO % 0.8 % (0.0-1.0); EOS # 0.2 10*3/uL (0.0-0.4); EOS % 1.9 % (1.0-4.0); MEAN CELL VOLUME 83.5 fl (80.0-94.0); MEAN CORPUSCULAR HGB 28.2 pg (27.0-31.0); MEAN CORPUSCULAR HGB CONC 33.8 g/dl (33.0-37.0); MEAN PLATELET VOLUME 10.4 fl (9.6-12.3); MONO # 0.8 10*3/uL (0.1-1.0); MONO % 8.5 % (3.0-9.0); NEUT # 6.1 10*3/uL (2.3-7.9); NEUT % 64.3 % (47.0-73.0); PLATELET COUNT AUTOMATED 264 10*3/uL (130-400); RED BLOOD COUNT 5.99 10*6/uL (4.50-5.90); RED CELL DISTRI WIDTH 15.9 % (0-14.5); WHITE BLOOD COUNT 9.5 10*3/uL (4.8-10.8)
[2024-09-14 19:05] LABS: ALKALINE PHOSPHATASE 96 U/L (46-116); BUN 12 mg/dl (9-23); CHLORIDE 101 mmol/L (98-107); LIPASE 29 U/L (12-53); POTASSIUM 4.3 mmol/L (3.4-5.1); SGPT/ALT 25 U/L (5-49); TOTAL PROTEIN 8.1 gm/dL (6.0-8.0)
[2024-09-14] MEDS ORDERED: INSULIN REGULAR, HUMAN 1 UNIT/0.01 ML IV ONE ×2 (19:20→22:00)
[2024-09-14 23:22] VITALS: BP 156/96
[2024-09-15] MEDS ORDERED: Ondansetron4 MG PO (01:02)
== END 2024-09-15 01:25 | disposition home or self-care (01) ==
LOC: ED 17:26
PROVIDERS: Internal Medicine
DX: E11.65 Type 2 diabetes mellitus with hyperglycemia (principal); E87.20 Acidosis, unspecified; R11.2 Nausea with vomiting, unspecified; N17.9 Acute kidney failure, unspecified; Z88.4 Allergy status to anesthetic agent; Z79.899 Other long term (current) drug therapy; Z79.4 Long term (current) use of insulin; Z79.82 Long term (current) use of aspirin; Z90.49 Acquired absence of other specified parts of digestive tract; Z95.5 Presence of coronary angioplasty implant and graft; Z98.890 Other specified postprocedural states

== ENCOUNTER 2024-09-17 19:47 | Emergency (ER) | payer MEDICAID ==
[~2024-09-17] VITALS: Ht 180.3 cm; Wt 104.4 kg
[2024-09-17] MEDS ORDERED: Acetaminophen/Oxycodone 5 MG/325 MG TABLET PO ONE (22:30)
[2024-09-17 22:57] VITALS: BP 136/85
[2024-09-17] MEDS ORDERED: METHOCARBAMOL750 M1 PO (23:11)
== END 2024-09-17 23:21 | disposition home or self-care (01) ==
LOC: ED 19:47
DX: S39.012A Strain of muscle, fascia and tendon of lower back, initial encounter (principal); M47.816 Spondylosis without myelopathy or radiculopathy, lumbar region; E11.9 Type 2 diabetes mellitus without complications; J44.9 Chronic obstructive pulmonary disease, unspecified; I10 Essential (primary) hypertension; F32.A Depression, unspecified; I25.10 Atherosclerotic heart disease of native coronary artery without angina pectoris; Z79.4 Long term (current) use of insulin; Z79.82 Long term (current) use of aspirin; Z79.899 Other long term (current) drug therapy; Z88.4 Allergy status to anesthetic agent; Z90.49 Acquired absence of other specified parts of digestive tract; Z98.890 Other specified postprocedural states; X58.XXXA Exposure to other specified factors, initial encounter; Y93.89 Activity, other specified; Y92.89 Other specified places as the place of occurrence of the external cause; Y99.8 Other external cause status

== ENCOUNTER 2024-09-22 19:30 | Emergency (ER) | payer MEDICAID ==
[~2024-09-22] VITALS: Ht 180.3 cm; Wt 104.3 kg
[~2024-09-22 19:30] MED LIST changes: +METHOCARBAMOL750 M1 PO
[2024-09-22 19:42] VITALS: BP 180/120
[2024-09-22] MEDS ORDERED: Ketorolac Tromethamine 30 MG/ML VIAL IM ONE (19:55)
== END 2024-09-22 20:07 | disposition home or self-care (01) ==
LOC: ED 19:30
DX: M54.41 Lumbago with sciatica, right side (principal); M79.604 Pain in right leg; M79.651 Pain in right thigh; E11.9 Type 2 diabetes mellitus without complications; J44.9 Chronic obstructive pulmonary disease, unspecified; I25.10 Atherosclerotic heart disease of native coronary artery without angina pectoris; I25.2 Old myocardial infarction; I10 Essential (primary) hypertension; E78.00 Pure hypercholesterolemia, unspecified; F32.A Depression, unspecified; Z79.4 Long term (current) use of insulin; Z88.8 Allergy status to other drugs, medicaments and biological substances; Z90.49 Acquired absence of other specified parts of digestive tract; Z98.890 Other specified postprocedural states; Z95.1 Presence of aortocoronary bypass graft

== ENCOUNTER → 2024-09-24 | Outpatient (CLI) | payer MEDICAID | END | disposition home or self-care (01) | LOC: RAD 12:11 | PROVIDERS: ATTEND Nurse Practitioner Family | DX: M47.817 Spondylosis without myelopathy or radiculopathy, lumbosacral region (principal); M54.9 Dorsalgia, unspecified ==

== ENCOUNTER 2024-09-30 12:34 | Emergency (ER) | payer MEDICAID ==
[~2024-09-30] VITALS: Ht 180.3 cm; Wt 106.6 kg
[2024-09-30] MEDS ORDERED: Acetaminophen/Hydrocodone 5 MG/325 MG TABLET PO ONE (13:00)
[2024-09-30 13:16] LABS: BASO # 0.1 10*3/uL (0.0-0.1); EOS # 0.3 10*3/uL (0.0-0.4); EOS % 2.9 % (1.0-4.0); HEMATOCRIT 47.3 % (42.0-52.0); MEAN CELL VOLUME 81.8 fl (80.0-94.0); MEAN CORPUSCULAR HGB 28.5 pg (27.0-31.0); MEAN CORPUSCULAR HGB CONC 34.9 g/dl (33.0-37.0); MEAN PLATELET VOLUME 11.1 fl (9.6-12.3); MONO % 10.1 % (3.0-9.0); NEUT # 6.8 10*3/uL (2.3-7.9); NEUT % 70.1 % (47.0-73.0); PLATELET COUNT AUTOMATED 244 10*3/uL (130-400); RED BLOOD COUNT 5.78 10*6/uL (4.50-5.90); RED CELL DISTRI WIDTH 14.9 % (0-14.5); WHITE BLOOD COUNT 9.7 10*3/uL (4.8-10.8)
[2024-09-30 13:45] LABS: BUN 13 mg/dl (9-23); CHLORIDE 99 mmol/L (98-107)
[2024-09-30] MEDS ORDERED: INSULIN REGULAR, HUMAN 1 UNIT/0.01 ML IV ONE (14:10)
[2024-09-30] MEDS ORDERED: SODIUM CHLORIDE 0.9% 1,000 ML IV ONE (14:10)
[2024-09-30 16:42] VITALS: BP 159/103
== END 2024-09-30 16:56 | disposition home or self-care (01) ==
LOC: ED 12:34
PROVIDERS: Nurse Practitioner Family
DX: R07.89 Other chest pain (principal); E11.65 Type 2 diabetes mellitus with hyperglycemia; I10 Essential (primary) hypertension; J44.9 Chronic obstructive pulmonary disease, unspecified; E78.00 Pure hypercholesterolemia, unspecified; F32.A Depression, unspecified; Z79.4 Long term (current) use of insulin; Z79.82 Long term (current) use of aspirin; Z79.899 Other long term (current) drug therapy; Z88.4 Allergy status to anesthetic agent; Z90.49 Acquired absence of other specified parts of digestive tract; Z90.89 Acquired absence of other organs; Z98.890 Other specified postprocedural states

== ENCOUNTER 2024-10-11 20:20 | Emergency (ER) | payer MEDICAID ==
[~2024-10-11] VITALS: Ht 180.3 cm; Wt 104.3 kg
[2024-10-11 20:35] VITALS: BP 157/114
[2024-10-11] MEDS ORDERED: TRAMADOL HCL50 MG PO (21:48)
[2024-10-11] MEDS ORDERED: traMADol Hydrochloride 50 MG TAB PO ONE (21:50)
== END 2024-10-11 21:52 | disposition home or self-care (01) ==
LOC: ED 20:20
DX: R07.2 Precordial pain (principal); Z88.4 Allergy status to anesthetic agent; Z79.899 Other long term (current) drug therapy; Z79.4 Long term (current) use of insulin; Z79.82 Long term (current) use of aspirin; Z95.5 Presence of coronary angioplasty implant and graft; Z90.49 Acquired absence of other specified parts of digestive tract; Z98.890 Other specified postprocedural states

== ENCOUNTER 2024-10-14 19:00 | Emergency (ER) | payer MEDICAID ==
[~2024-10-14] VITALS: Ht 180.3 cm; Wt 113.4 kg
[2024-10-14 19:18] VITALS: BP 162/102
[2024-10-14 20:24] LABS: BASO # 0.1 10*3/uL (0.0-0.1); BASO % 0.9 % (0.0-1.0); EOS # 0.3 10*3/uL (0.0-0.4); EOS % 3.8 % (1.0-4.0); HEMATOCRIT 43.4 % (42.0-52.0); MEAN CELL VOLUME 83.6 fl (80.0-94.0); MEAN CORPUSCULAR HGB 28.5 pg (27.0-31.0); MEAN CORPUSCULAR HGB CONC 34.1 g/dl (33.0-37.0); MEAN PLATELET VOLUME 11.2 fl (9.6-12.3); MONO # 0.7 10*3/uL (0.1-1.0); MONO % 8.5 % (3.0-9.0); NEUT # 4.8 10*3/uL (2.3-7.9); NEUT % 55.9 % (47.0-73.0); PLATELET COUNT AUTOMATED 235 10*3/uL (130-400); RED BLOOD COUNT 5.19 10*6/uL (4.50-5.90); RED CELL DISTRI WIDTH 14.5 % (0-14.5); WHITE BLOOD COUNT 8.7 10*3/uL (4.8-10.8)
[2024-10-14 23:04] LABS: BUN 9 mg/dl (9-23); CHLORIDE 102 mmol/L (98-107); POTASSIUM 3.2 mmol/L (3.4-5.1)
[2024-10-15] MEDS ORDERED: ZITHROMAX250 MG PO (00:47)
[2024-10-15] MEDS ORDERED: BENZONATATE100 M1 PO (00:47)
[2024-10-15] MEDS ORDERED: AZITHROMYCIN 250 MG TAB PO ONE (00:50)
[2024-10-15] MEDS ORDERED: BENZONATATE 100 MG CAP PO ONE (00:50)
== END 2024-10-15 01:07 | disposition home or self-care (01) ==
LOC: ED 19:00
PROVIDERS: Emergency Medicine
DX: R05.9 Cough, unspecified (principal); R55 Syncope and collapse; I25.10 Atherosclerotic heart disease of native coronary artery without angina pectoris; J44.9 Chronic obstructive pulmonary disease, unspecified; K21.9 Gastro-esophageal reflux disease without esophagitis; I25.2 Old myocardial infarction; E11.40 Type 2 diabetes mellitus with diabetic neuropathy, unspecified; E78.2 Mixed hyperlipidemia; I12.9 Hypertensive chronic kidney disease with stage 1 through stage 4 chronic kidney disease, or unspecified chronic kidney disease; E11.22 Type 2 diabetes mellitus with diabetic chronic kidney disease; N18.31 Chronic kidney disease, stage 3a; Z86.718 Personal history of other venous thrombosis and embolism; Z88.4 Allergy status to anesthetic agent; Z79.899 Other long term (current) drug therapy; Z79.4 Long term (current) use of insulin; Z79.82 Long term (current) use of aspirin; Z86.711 Personal history of pulmonary embolism; Z86.73 Personal history of transient ischemic attack (TIA), and cerebral infarction without residual deficits; Z95.5 Presence of coronary angioplasty implant and graft; Z90.49 Acquired absence of other specified parts of digestive tract; Z98.890 Other specified postprocedural states

== ENCOUNTER 2024-10-21 19:57 | Emergency (ER) | payer MEDICAID ==
[~2024-10-21] VITALS: Ht 180.3 cm; Wt 104.3 kg
[~2024-10-21 19:57] MED LIST changes: +BENZONATATE100 M1 PO
[2024-10-21 20:21] VITALS: BP 155/94
[2024-10-21] MEDS ORDERED: methylPREDNISolone sod succ 125 MG VIAL IM ONE (21:00)
== END 2024-10-21 21:11 | disposition home or self-care (01) ==
LOC: ED 19:57
DX: J40 Bronchitis, not specified as acute or chronic (principal); I10 Essential (primary) hypertension; E11.9 Type 2 diabetes mellitus without complications; I25.811 Atherosclerosis of native coronary artery of transplanted heart without angina pectoris; F32.A Depression, unspecified; Z79.4 Long term (current) use of insulin; Z79.82 Long term (current) use of aspirin; Z79.899 Other long term (current) drug therapy; Z88.4 Allergy status to anesthetic agent; Z90.49 Acquired absence of other specified parts of digestive tract; Z90.89 Acquired absence of other organs; Z98.890 Other specified postprocedural states

== ENCOUNTER 2024-10-25 15:09 | Emergency (ER) | payer MEDICAID ==
[~2024-10-25] VITALS: Ht 180.3 cm; Wt 105.2 kg
[2024-10-25 15:17] VITALS: BP 153/97
[2024-10-25] MEDS ORDERED: Dexamethasone Sodium Phospha 20 MG/5 ML VIAL IM ONE (15:35)
[2024-10-25] MEDS ORDERED: METHOCARBAMOL 750 MG TAB PO ONE (15:35)
[2024-10-25] MEDS ORDERED: PREDNISONE20 M1 PO (15:50)
[2024-10-25] MEDS ORDERED: METHOCARBAMOL750 M1 PO (15:50)
== END 2024-10-25 15:55 | disposition home or self-care (01) ==
LOC: ED 15:09
DX: M77.01 Medial epicondylitis, right elbow (principal); G56.01 Carpal tunnel syndrome, right upper limb; G56.21 Lesion of ulnar nerve, right upper limb; R07.81 Pleurodynia; R06.02 Shortness of breath; Z88.4 Allergy status to anesthetic agent; Z79.899 Other long term (current) drug therapy; Z79.4 Long term (current) use of insulin; Z79.82 Long term (current) use of aspirin; Z95.5 Presence of coronary angioplasty implant and graft; Z90.49 Acquired absence of other specified parts of digestive tract; Z98.890 Other specified postprocedural states

== ENCOUNTER 2024-11-01 21:51 | Emergency (ER) | payer MEDICAID ==
[~2024-11-01] VITALS: Ht 180.3 cm; Wt 104.3 kg
[2024-11-01 22:12] VITALS: BP 183/114
[2024-11-01 23:04] LABS: BILIRUBIN Negative (Negative); BLOOD 1+ (Negative); CLARITY Clear (Clear); COLOR Yellow (Yellow); KETONE Negative (Negative); LEUKO ESTERASE Negative (Negative); NITRITE Negative (Negative); PH 6.0 (4.5-8.0); SPECIFIC GRAVITY >= 1.030 (1.001-1.030); UROBILINOGEN 0.2 E.U./dl (0.0-1.0)
[2024-11-01 23:13] LABS: BACTERIA TRACE; MUCOUS TRACE; WBC 0-2 wbc/hpf (0-5)
[2024-11-02] MEDS ORDERED: METHOCARBAMOL 500 MG TAB PO ONE (01:40)
[2024-11-02] MEDS ORDERED: METHOCARBAMOL750 M1 PO (01:43)
== END 2024-11-02 01:55 | disposition home or self-care (01) ==
LOC: ED 21:51
PROVIDERS: Internal Medicine
DX: M54.50 Low back pain, unspecified (principal); R39.15 Urgency of urination; Z88.4 Allergy status to anesthetic agent; Z79.899 Other long term (current) drug therapy; Z79.4 Long term (current) use of insulin; Z79.82 Long term (current) use of aspirin; Z95.5 Presence of coronary angioplasty implant and graft; Z98.890 Other specified postprocedural states

== ENCOUNTER → 2024-11-07 | Outpatient (CLI) | payer MEDICAID | END | disposition home or self-care (01) | LOC: ORTHO 04:24 | PROVIDERS: ATTEND Orthopaedic Surgery | DX: M25.531 Pain in right wrist (principal); I25.84 Coronary atherosclerosis due to calcified coronary lesion ==

== ENCOUNTER 2024-11-15 19:39 | Emergency (ER) | payer MEDICAID ==
[~2024-11-15] VITALS: Ht 180.3 cm; Wt 104.3 kg
[2024-11-15 20:06] LABS: BASO # 0.1 10*3/uL (0.0-0.1); BASO % 0.6 % (0.0-1.0); EOS # 0.3 10*3/uL (0.0-0.4); EOS % 3.9 % (1.0-4.0); MEAN CELL VOLUME 85.2 fl (80.0-94.0); MEAN CORPUSCULAR HGB 28.4 pg (27.0-31.0); MEAN PLATELET VOLUME 10.2 fl (9.6-12.3); MONO # 0.7 10*3/uL (0.1-1.0); MONO % 9.1 % (3.0-9.0); NEUT # 4.3 10*3/uL (2.3-7.9); NEUT % 54.2 % (47.0-73.0); NUCLEATED RED BLOOD CELL 0.0 % (0.0-0.0); NUCLEATED RED BLOOD CELL 0.0 10*3/uL (0.0-0.0); PLATELET COUNT AUTOMATED 272 10*3/uL (130-400); RED CELL DISTRI WIDTH 13.5 % (0-14.5)
[2024-11-15 21:26] LABS: BUN 15 mg/dl (9-23)
[2024-11-15] MEDS ORDERED: SODIUM CHLORIDE 0.9% 1,000 ML IV ONE ×2 (21:45)
[2024-11-15] MEDS ORDERED: INSULIN REGULAR, HUMAN 1 UNIT/0.01 ML IV ONE ×2 (21:45)
[2024-11-15 23:00] VITALS: BP 164/77
== END 2024-11-15 23:53 | disposition home or self-care (01) ==
LOC: ED 19:39
PROVIDERS: Internal Medicine
DX: E11.65 Type 2 diabetes mellitus with hyperglycemia (principal); I25.10 Atherosclerotic heart disease of native coronary artery without angina pectoris; E11.9 Type 2 diabetes mellitus without complications; Z88.4 Allergy status to anesthetic agent; Z79.899 Other long term (current) drug therapy; Z79.4 Long term (current) use of insulin; Z79.82 Long term (current) use of aspirin; Z90.49 Acquired absence of other specified parts of digestive tract; Z95.5 Presence of coronary angioplasty implant and graft; Z98.890 Other specified postprocedural states

== ENCOUNTER 2025-01-25 21:53 | Emergency (ER) | payer OTHER ==
[~2025-01-25] VITALS: Ht 180.3 cm; Wt 97.1 kg
[2025-01-25] MEDS ORDERED: Labetalol Hydrochloride 20 MG/4 ML SYR IV ONE (22:10)
[2025-01-25 22:34] LABS: BASO # 0.1 10*3/uL (0.0-0.1); BASO % 0.8 % (0.0-1.0); EOS # 0.3 10*3/uL (0.0-0.4); EOS % 3.1 % (1.0-4.0); MEAN CELL VOLUME 84.7 fl (80.0-94.0); MEAN CORPUSCULAR HGB 27.9 pg (27.0-31.0); MEAN PLATELET VOLUME 11.5 fl (9.6-12.3); MONO # 1.0 10*3/uL (0.1-1.0); MONO % 9.4 % (3.0-9.0); NEUT # 6.1 10*3/uL (2.3-7.9); NEUT % 60.1 % (47.0-73.0); NUCLEATED RED BLOOD CELL 0.0 % (0.0-0.0); NUCLEATED RED BLOOD CELL 0.0 10*3/uL (0.0-0.0); PLATELET COUNT AUTOMATED 198 10*3/uL (130-400); RED CELL DISTRI WIDTH 13.1 % (0-14.5)
[2025-01-25 22:46] LABS: ACT PARTIAL THROMBO TIME 29.1 SECONDS (20.0-32.1)
[2025-01-25 23:02] LABS: BUN 13 mg/dl (9-23)
[2025-01-25] MEDS ORDERED: SODIUM CHLORIDE 0.9% 1,000 ML IV ONE (23:15)
[2025-01-26 01:00] VITALS: BP 165/115
[2025-01-26] MEDS ORDERED: LISINOPRIL5 MG PO (01:01)
== END 2025-01-26 01:15 | disposition home or self-care (01) ==
LOC: ED 21:53
PROVIDERS: Internal Medicine
DX: I16.0 Hypertensive urgency (principal); Z91.198 Patient's noncompliance with other medical treatment and regimen for other reason; R11.2 Nausea with vomiting, unspecified; E11.9 Type 2 diabetes mellitus without complications; Z88.4 Allergy status to anesthetic agent; Z79.899 Other long term (current) drug therapy; Z79.82 Long term (current) use of aspirin; Z79.4 Long term (current) use of insulin; Z95.5 Presence of coronary angioplasty implant and graft; Z90.49 Acquired absence of other specified parts of digestive tract; Z98.890 Other specified postprocedural states